=== PATIENT | male | born 1935 | race Caucasian/White ===

== ENCOUNTER 2023-03-20 16:26 | Emergency (ER) | payer MEDICARE, BC, SELFPAY ==
[2023-03-20 16:26] VITALS: BP 158/74; PULSE 76; RESP 14; TEMP 36.2; O2SAT 99
--- NOTE | 2023-03-20 16:45 | ED.VIS.LOWEX ---
HPI History of Present Illness Chief Complaint: Lower Extremity Injury Informant: patient Narrative Narrative: Patient presents with right lower extremity discomfort for about 2 weeks. Patient states that mostly at night he will get a burning feeling in his lower dominguez and calf. Is never higher. He states that he is up walking and moving around during the day he feels perfectly fine and has no symptoms at all. But if he lays down or even sometimes sits down for a long time he will get that burning feel. It is only on the right side. He does have a long history of diabetes. But he denies any known retinopathy or peripheral neuropathy. He has had trauma to that leg in the past. It sounds like he had a compartment syndrome or large hematoma that was drained but that was over 10 years ago. So he has some scarring to that leg. But he has never had the symptoms before. He has had some back pain before but states that it is not worse or different and he does not have numbness or tingling. He has had no new trauma. Patient was concerned about blood clot. PFSH PFSH Home Medications Ezetimibe/Simvastatin [Vytorin 10-20 Mg Tablet] 1 tab PO QPM cholesterol 12/04/16 [History Last Taken 10/07/19 23:00] amlodipine 10 mg tablet (Norvasc) 10 mg PO DAILY high blood pressure 12/04/16 [History Last Taken 10/07/19 07:00] Vitamin C 500 mg PO DAILY supplement 10/07/19 [History Last Taken 10/07/19 12:00] linagliptin 5 mg tablet 5 mg PO DAILY diabetes 10/07/19 [History Last Taken 10/07/19 07:00] oxycodone-acetaminophen 5 mg-325 mg tablet 1 tab PO TID PRN Pain Score 1-11/2510/08/19 [History Last Taken Unknown] Allergy/AdvReac Type Severity Reaction Status Date / Time No Known Allergies Allergy Verified 10/07/19 19:54 Social History Smoking Status: Never smoker ROS ROS ED Constitutional Constitutional ED: Denies chills, fever(s) or sweats ENT ENT ED: Denies rhinorrhea Cardiovascular Cardiovascular: Denies chest pain or palpitations Respiratory/Chest Respiratory/Chest: Denies cough or dyspnea Gastrointestinal Gastrointestinal: Denies nausea or vomiting Musculoskeletal Musculoskeletal: Reports other Details: See history of present illness ; Denies myalgias or neck pain Integumentary Denies abscess, Abrasions or rash Neurologic Neurologic: Reports paresthesias; Denies headache(s) or weakness Endocrine Endocrinology: Denies polyphagia or polyuria Hematologic/Lymphatic Hematologic/Lymphatic: Reports other Details: Denies being on anticoagulation. ; Denies easy bleeding or easy bruising Allergic/Immunologic Allergic/Immunologic ED: Denies urticaria EXAM Physical Exam Narrative Exam Narrative: CONSTITUTIONAL: Patient is nontoxic in appearance. The patient looks comfortable. Work of breathing looks normal. HEENT: No notable trauma. Mucous membranes moist. EYES: No pallor. NECK:No JVD. No stridor. CARDIOVASCULAR: Regular rate. Regular rhythm. No notable murmur. No JVD. RESPIRATORY: No respiratory distress. Breathing is unlabored. No wheezes. GASTROINTESTINAL: Not distended. Bowel sounds are normal. No tenderness. MUSCULOSKELETAL: Patient has some old scarring to the right leg and so he has some firmness to the soft tissue but it sounds like this is not different than his baseline. The leg and calf are not swollen. It is warm as a normal temperature with good blood flow. Good pulses. No redness at all. It is not tender. Sensation is intact. Other than the chronic scarring and changes from his surgery I think this is really a normal exam. NEUROLOGICAL: Patient is alert and appropriate. No focal deficit noted. SKIN: No noted rashes. No diaphoresis. Const Vital Signs: 03/20/23 16:26 Temperature 97.2 F L Temperature Source Temporal Pulse Rate 76 Respiratory Rate 14 Blood Pressure 158/74 H Blood Pressure Mean 102 Pulse Ox 99 MDM MDM MDM Narrative Medical decision making narrative: Patient's metabolic panel showed renal dysfunction but is really near his baseline. Glucose is reasonably controlled at 187. Ultrasound showed no DVT. Patient's exam and history are most consistent with peripheral neuropathy likely from diabetes. I discussed this with the patient. I explained that there are some meds that can be started but this is best started by his primary as they may need to adjust the dose frequently. They also may end up adjusting meds for his diabetes. I explained that tighter blood sugar control is can also help with this. Lab Data Labs: Laboratory Results - last 24 hr 03/20/23 16:49 Sodium 139 Potassium 3.9 Chloride 113 H Carbon Dioxide 22.0 Anion Gap 4 L BUN 36 H Creatinine 2.50 H Est GFR (MDRD) Af Amer 31 L Est GFR (MDRD) Non-Af 26 L BUN/Creatinine Ratio 14.4 Glucose 187 H Calcium 8.9 Discharge Plan Triage Chief Complaint: Lower Extremity Injury ED Provider: Twin French Dx/Rx/DC Orders Clinical Impression: Diabetic neuropathy, Leg pain, right Instructions: Diabetic Neuropathy Prescriptions: No Action amlodipine [Norvasc] 10 MG tablet 10 mg PO DAILY Ezetimibe/Simvastatin [Vytorin 10-20 Mg Tablet] 1 TABLET tablet 1 tab PO QPM linagliptin 5 MG tablet 5 mg PO DAILY Vitamin C 500 mg PO DAILY oxycodone-acetaminophen 1 TABLET tablet 1 tab PO TID PRN (Reason: Pain Score 1-10/10) Primary Care Provider: Buck Patten Referrals: Vivien Torres MD [Med Staff - Bankruptcy Manager] - As soon as possible Disposition Disposition: Home, Self Care
--- NOTE | 2023-03-20 16:50 | US_ITS ---
STUDY: VENOUS DOPPLER ULTRASOUND - RIGHT LOWER EXTREMITY REASON FOR EXAM: Male, 87 years old. right leg pain TECHNIQUE: Ultrasound evaluation of the deep vein system to include martínez-scale imaging and compression was performed. Martínez-scale imaging and Doppler sonographic evaluation, including duplex spectral analysis and qualitative color flow sonography, was performed. COMPARISON: None. FINDINGS: Common Femoral Vein: Normal compression, spontaneity and augmentation. Normal color Doppler. Common Femoral Vein/Greater Saphenous Junction: Normal compression, spontaneity and augmentation. Normal color Doppler. Deep Femoral Vein: Normal compression, spontaneity and augmentation. Normal color Doppler. Femoral Proximal: Normal compression, spontaneity and augmentation. Normal color Doppler. Femoral Middle: Normal compression, spontaneity and augmentation. Normal color Doppler. Femoral Distal: Normal compression, spontaneity and augmentation. Normal color Doppler. Popliteal Vein: Normal compression, spontaneity and augmentation. Normal color Doppler. Posterior Tibial Vein: Normal compression, spontaneity and augmentation. Normal color Doppler. Peroneal Vein: Normal compression, spontaneity and augmentation. Normal color Doppler. US/Venous Duplex Imag/Limited/Uni IMPRESSION: Normal venous Doppler ultrasound of the lower extremity. Electronically Signed: Renzo Mary MD at 17:57 EST ,
[2023-03-20 17:13] LABS: Anion Gap 4 (5-15); BUN 36 mg/dL (7-18); BUN/Creat Ratio 14.4 RATIO (10-20); Calcium,Total 8.9 mg/dL (8.5-10.1); Chloride 113 mmol/L (98-107); EST Glomerular Filtration Rate 26 mL/min (>60); Est Glom Filt Rate - Afr Amer 31 mL/min (>60); Glucose 187 mg/dL (74-106); Potassium 3.9 mmol/L (3.5-5.1); Sodium Level 139 mmol/L (136-145)
--- OUTSIDE RECORDS SUMMARY | 2023-03-20 18:13 | XMS RPT_ITS | CCD ---
Author Name Unknown Address [address] [facility] [address] [place] [address] Organization [facility] Care Team Providers Care Player Piano Technician Name Role Phone Gwen SUPERVISOR RIDES-RELAY WORKER, Amie Unavailable [phone] [facility], [place] Unavailable Sandor CALI, Buck Woods Primary Care Provider [facility], [facility] Unavailable Sandor CALI, Buck Woods Primary Care Provider [facility], [place] Unavailable [facility], [facility] Unavailable Sandor CALI, Buck Woods Primary Care Provider [facility], [place] Unavailable BUCK BISHOP Primary Care Unavailable ELVIRA PICKERING Referring Unavailable BUCK BISHOP Primary Care Unavailable BANG MITCHELL Attending Unavailable YANIRA YEBOAH Referring Unavailable BUCK BISHOP Primary Care Unavailable CARRIE CANTU Attending Unavailable CARRIE CANTU Referring Unavailable BUCK BISHOP Primary Care Unavailable BANG MITCHELL Attending Unavailable ABNG MITCHELL Referring Unavailable BUCK BISHOP Primary Care Unavailable ARLEN JAMIL Attending Unavailable BUCK BISHOP Primary Care Unavailable BANG MITCHELL Attending Unavailable BUCK BISHOP Primary Care Unavailable SANDOR, BUCK Woods Primary Care Unavailable BUCK BISHOP Attending Unavailable BUCK BISHOP Referring Unavailable SANDOR, BUCK Woods Primary Care Unavailable BUCK BISHOP Attending Unavailable SANDOR, BUCK Woods Primary Care Unavailable BISHOP, DOUGLAS Referring Unavailable BISHOP, DOUGLAS Primary Care Unavailable BISHOP, DOUGLAS Primary Care Unavailable BISHOP, DOUGLAS Primary Care Unavailable YANIRA YEBOAH Referring Unavailable RAEANN HERNANDEZ Referring Unavailable BISHOP, DOUGLAS Primary Care Unavailable BISHOP, DOUGLAS Primary Care Unavailable TATIANA SANTIAGO Attending Unavailable BISHOP, DOUGLAS Referring Unavailable BANG MITCHELL Attending Unavailable BANG MITCHELL Admitting Unavailable BISHOP, DOUGLAS Primary Care Unavailable BISHOP, DOUGLAS Primary Care Unavailable Allergies Allergy Classification Reported Allergen(s) Allergy Type Date of Onset Reaction(s) Facility (4 sources) [facility] Drug Allergy 04-13-2015 Other: See Comments [facility] (20 sources) valsartan; Translations: [VALSARTAN] Drug Allergy 11-24-2007 Cough [facility] Medications Current Medications Medication Drug Class(es) Dates Sig (Normalized) Sig (Original) benzonatate 100 mg oral capsule (6 sources) Non-narcotic Antitussive Start: 05-16-2022 End: 08-12-2022 take 2 capsules by mouth every eight hours as needed benzonatate (TESSALON PERLES) 100 mg capsule Take 2 capsules by mouth three times daily as needed. 30 capsule 0 05/16/2022 08/12/2022 Discontinued Completed/Discontinued Medications Medication Drug Class(es) Dates Sig (Normalized) Sig (Original) HYDROCODONE-ACETAMINO PHEN (1 source) Opioid Agonist Start: 07-14-2017 End: 07-29-2017 take 1 tablet by mouth every six hours as needed for pain NORCO 5-325 MG TABS Take 1 tablet by mouth every 6 hours as needed for pain HYDROCODONE-ACETAM INOPHEN [id number] Amie Hidalgo SUPERVISOR RIDES-RELAY WORKER acetaminophen 325 mg / oxyCODONE hydrochloride 10 mg oral tablet (20 sources) Opioid Agonist Start: 06-26-2022 take 1 tablet by mouth three to four times daily as needed for pain oxyCODONE-acetamin ophen (PERCOCET 10) 10-325 mg tablet TAKE 1 TABLET BY MOUTH 3 TO 4 TIMES DAILY NEEDED FOR PAIN 0 06/26/2022 Active Problems Active Problems Problem Classification Problem Date Documented Date Episodic/Chronic Blindness and vision defects (1 source) Presbyopia; Translations: [Presbyopia] Episodic Cataract (1 source) Bilateral pseudophakia; Translations: [Presence of intraocular lens] Chronic Chronic kidney disease (20 sources) Anemia in chronic kidney disease stage 4; Translations: [Chronic kidney disease, stage 4 (severe)] Onset: 07-08-2020 07-08-2020 Chronic Diabetes mellitus with complications (20 sources) Type 2 diabetes mellitus; Translations: [Type 2 diabetes mellitus with hyperglycemia] Onset: 06-22-2014 Chronic Diabetes mellitus without complication (1 source) Diabetes mellitus type 2 without retinopathy; Translations: [Type 2 diabetes mellitus without complications] Chronic Disorders of lipid metabolism (20 sources) Hyperlipidemia; Translations: [Hyperlipidemia, unspecified] Onset: 03-18-2021 03-18-2021 Chronic E Codes: Fall (1 source) Fall; Translations: [Unspecified fall, initial encounter] Episodic Essential hypertension (20 sources) Essential hypertension; Translations: [Essential (primary) hypertension] Onset: 02-27-2015 02-27-2015 Chronic Hyperplasia of prostate (20 sources) Benign prostatic hypertrophy with outflow obstruction; Translations: [Benign prostatic hyperplasia with lower urinary tract symptoms] Onset: 12-03-2006 06-29-2017 Chronic Immunizations and screening for infectious disease (2 sources) Needs influenza immunization; Translations: [Encounter for immunization] Episodic Osteoarthritis (20 sources) Arthritis of right knee; Translations: [Unilateral primary osteoarthritis, right knee] Onset: 11-10-2011 11-10-2011 Chronic Other congenital anomalies (12 sources) Congenital pes planus; Translations: [Congenital pes planus, unspecified foot] Onset: 06-30-2006 06-30-2006 Chronic Other connective tissue disease (2 sources) Arthrodesis status; Translations: [Degenerative disorder of musculoskeletal system] Onset: 02-05-2017 05-14-2017 Episodic Other connective tissue disease (1 source) Pain in right hand; Translations: [Pain in right hand] Episodic Other connective tissue disease (1 source) Bursitis; Translations: [Bursopathy, unspecified] Episodic Other diseases of bladder and urethra (12 sources) Bladder neck obstruction; Translations: [Bladder-neck obstruction] Onset: 12-03-2006 12-03-2006 Chronic Other eye disorders (1 source) Bilateral posterior vitreous detachment; Translations: [Vitreous degeneration, bilateral] Chronic Other lower respiratory disease (1 source) Cough; Translations: [Acute cough] Episodic Other lower respiratory disease (2 sources) Chronic cough; Translations: [Chronic cough] Onset: 01-05-2023 01-05-2023 Episodic Other nervous system disorders (4 sources) Carpal tunnel syndrome of right wrist; Translations: [Carpal tunnel syndrome, right upper limb] 09-18-2022 Chronic Other nervous system disorders (1 source) Carpal tunnel syndrome, right upper limb; Translations: [Right carpal tunnel syndrome] Onset: 10-02-2022 Chronic Other non-traumatic joint disorders (1 source) Shoulder pain; Translations: [Pain in right shoulder] Episodic Other nutritional; endocrine; and metabolic disorders (20 sources) Obese class I; Translations: [Obesity, unspecified] Onset: 01-15-2022 Chronic Other skin disorders (1 source) Benign neoplasm of skin of forehead; Translations: [Actinic keratosis] Episodic Residual codes; unclassified (20 sources) Obstructive sleep apnea syndrome; Translations: [Obstructive sleep apnea (adult) (pediatric)] Onset: 11-24-2014 11-24-2014 Chronic Residual codes; unclassified (1 source) Pain; Translations: [Pain, unspecified] Episodic Retinal detachments; defects; vascular occlusion; and retinopathy (1 source) Nonexudative age-related macular degeneration; Translations: [Nonexudative age-related macular degeneration, bilateral, early dry stage] Chronic Spondylosis; intervertebral disc disorders; other back problems (20 sources) Cervical arthritis; Translations: [Spondylosis without myelopathy or radiculopathy, cervical region] Onset: 03-07-2010 03-07-2010 Chronic Unclassified (1 source) Acute cough; Translations: [Acute cough] Onset: 05-16-2022 Past or Other Problems Problem Classification Problem Date Documented Da te Episodic/Chronic Genitourinary symptoms and ill-defined conditions (20 sources) Nocturia; Translations: [Nocturia] Onset: 01-06-2008 01-06-2008 Episodic Other aftercare (1 source) halfway (current) use of insulin; Translations: [Type 2 diabetes mellitus with stage 4 chronic kidney disease, with long-term current use of insulin (HCC)] Onset: 01-15-2022 Episodic Other bone disease and musculoskeletal deformities (1 source) Disorder of bone; Translations: [Disorder of bone density and structure, unspecified] Onset: 02-05-2017 02-05-2017 Episodic Other diseases of veins and lymphatics (20 sources) Peripheral venous insufficiency; Translations: [Venous insufficiency (chronic) (peripheral)] Onset: 11-10-2011 11-10-2011 Episodic Other nervous system disorders (12 sources) Abnormal gait; Translations: [Unsteadiness on feet] Onset: 06-22-2014 06-22-2014 Episodic Other non-traumatic joint disorders (1 source) Pain in right shoulder; Translations: [Acute pain of right shoulder] Onset: 06-16-2022 Episodic Other skin disorders (12 sources) Dry skin dermatitis; Translations: [Xerosis cutis] Onset: 03-07-2012 02-06-2019 Episodic Residual codes; unclassified (1 source) Pain, unspecified; Translations: [Pain] Onset: 07-10-2022 Episodic Spondylosis; intervertebral disc disorders; other back problems (20 sources) Spinal stenosis of lumbar region; Translations: [Backache] Onset: 06-22-2016 02-05-2017 Episodic Unclassified (1 source) Problem Results Test Name Value Interpretation Reference Range Facil ity Vital Signs Date Time Vital Sign Value Performing Clinician Facility 01-05-2023 14:08-0500 Body weight 91.17 kg Buck Bishop MD Work Phone: [facility] 01-05-2023 14:08-0500 Diastolic blood pressure 60 mm[Hg] Buck Bishop MD Work Phone: [facility] 01-05-2023 14:08-0500 Heart rate 64 /min Buck Bishop MD Work Phone: [facility] 01-05-2023 14:08-0500 Respiratory rate 12 /min Buck Bishop MD Work Phone: [facility] 01-05-2023 14:08-0500 Systolic blood pressure 122 mm[Hg] Buck Bishop MD Work Phone: [facility] 09-03-2022 14:00-0400 Body height 171.3 cm Carrie Cantu APRN.CNP Work Phone: [facility] 09-03-2022 14:00-0400 Body weight 88.45 kg Carrie Older SUPERVISOR RIDES.RELAY WORKER Work Phone: [facility] 09-03-2022 14:00-0400 Diastolic blood pressure 66 mm[Hg] Carrie Older SUPERVISOR RIDES.RELAY WORKER Work Phone: [facility] 09-03-2022 14:00-0400 Heart rate 72 /min Carrie Older SUPERVISOR RIDES.RELAY WORKER Work Phone: [facility] 09-03-2022 14:00-0400 Respiratory rate 16 /min Carrie Older SUPERVISOR RIDES.RELAY WORKER Work Phone: [facility] 09-03-2022 14:00-0400 Systolic blood pressure 122 mm[Hg] Carrie Older SUPERVISOR RIDES.RELAY WORKER Work Phone: [facility] 06-16-2022 11:31-0400 Body temperature 98.2 [degF] Raeann Praisler-Wood SUPERVISOR RIDES.RELAY WORKER Work Phone: [facility] 06-16-2022 11:31-0400 Body weight 91.54 kg Raeann Praisler-Wood SUPERVISOR RIDES.RELAY WORKER Work Phone: [facility] 06-16-2022 11:31-0400 Diastolic blood pressure 58 mm[Hg] Raeann Praisler-Wood SUPERVISOR RIDES.RELAY WORKER Work Phone: [facility] 06-16-2022 11:31-0400 Heart rate 80 /min Raeann Praisler-Wood SUPERVISOR RIDES.RELAY WORKER Work Phone: [facility] 06-16-2022 11:31-0400 Respiratory rate 21 /min Raeann Praisler-Wood SUPERVISOR RIDES.RELAY WORKER Work Phone: [facility] 06-16-2022 11:31-0400 SaO2% (BldA) [Mass fraction] 95 % Raeann Praisler-Wood SUPERVISOR RIDES.RELAY WORKER Work Phone: [facility] 06-16-2022 11:31-0400 Systolic blood pressure 122 mm[Hg] Raeann Praisler-Wood SUPERVISOR RIDES.RELAY WORKER Work Phone: [facility] 05-16-2022 15:30-0400 Body temperature 98.49 [degF] Elvira Athy PA-C Work Phone: [facility] 05-16-2022 15:30-0400 Body weight 91.26 kg Elvira Athy PA-C Work Phone: [facility] 05-16-2022 15:30-0400 Diastolic blood pressure 64 mm[Hg] Elvira Athy PA-C Work Phone: [facility] 05-16-2022 15:30-0400 Heart rate 73 /min Elvira Athy PA-C Work Phone: [facility] 05-16-2022 15:30-0400 Respiratory rate 16 /min Elvira Athy PA-C Work Phone: [facility] 05-16-2022 15:30-0400 SaO2% (BldA) [Mass fraction] 97 % Elvira Athy PA-C Work Phone: [facility] 05-16-2022 15:30-0400 Systolic blood pressure 110 mm[Hg] Elvira Athy PA-C Work Phone: [facility] 01-15-2022 14:25-0500 Body temperature 96.8 [degF] Buck Bishop MD Work Phone: [facility] 01-15-2022 14:25-0500 Body weight 91.17 kg Buck Bishop MD Work Phone: [facility] 01-15-2022 14:25-0500 Diastolic blood pressure 64 mm[Hg] Buck Bishop MD Work Phone: [facility] 01-15-2022 14:25-0500 Heart rate 68 /min Buck Bishop MD Work Phone: [facility] 01-15-2022 14:25-0500 Respiratory rate 12 /min Buck Bishop MD Work Phone: [facility] 01-15-2022 14:25-0500 Systolic blood pressure 118 mm[Hg] Buck Bishop MD Work Phone: [facility] 09-13-2021 14:54-0400 Body height 170.2 cm Buck Bishop MD Work Phone: [facility] 09-13-2021 14:54-0400 Body temperature 97.3 [degF] Buck Bishop MD Work Phone: [facility] 09-13-2021 14:54-0400 Body weight 92.53 kg Buck Bishop MD Work Phone: [facility] 09-13-2021 14:54-0400 Diastolic blood pressure 60 mm[Hg] Buck Bishop MD Work Phone: [facility] 09-13-2021 14:54-0400 Heart rate 94 /min Buck Bishop MD Work Phone: [facility] 09-13-2021 14:54-0400 Respiratory rate 14 /min Buck Bishop MD Work Phone: [facility] 09-13-2021 14:54-0400 SaO2% (BldA) [Mass fraction] 96 % Buck Bishop MD Work Phone: [facility] 09-13-2021 14:54-0400 Systolic blood pressure 134 mm[Hg] Buck Bishop MD Work Phone: [facility] NEGATED: Highlighted [id number] 14:27-0400 BMI (Body Mass Index) 28.08 kg/m2 Elba Narayan AT [facility] Work Phone: NEGATED: Highlighted [id number] 14:27-0400 BP Diastolic 67 mm[Hg] Elba Narayan AT [facility] Work Phone: NEGATED: Highlighted [id number] 14:27-0400 BP Systolic 115 mm[Hg] Elba Narayan AT [facility] Work Phone: NEGATED: Highlighted [id number] 14: Height 177.8 cm Elba Narayan AT [facility] Work Phone: NEGATED: Highlighted [id number] 14:040 Height 178 cm Elba Narayan AT [facility] Work Phone: NEGATED: Highlighted [id number] 14:-040 Pulse (Heart Rate) 80 /min Elba Narayan AT [facility] Work Phone: NEGATED: Highlighted [id number] 14:27-040 Weight 88.45 kg Elba Narayan AT [facility] Work Phone: NEGATED: Highlighted [id number] 14:040 Weight 89 kg Elba Narayan AT [facility] Work Phone: Encounters Encounter Date Encounter Type Care Provider Facility Start: 01-09-2023 Telephone encounter Buck pérez MD Work Phone: [facility] Procedures Date Procedure Procedure Detail Performing Clinician Start: 01-05-2023 Hemoglobin A1c/Hemoglobin.total in Blood Buck Bishop MD Work Phone: Start: 04-03-2022 Computerized ophthal kelsi imaging retina Tatiana Santiago OD Work Phone: Start: 01-15-2022 Hemoglobin A1c/Hemoglobin.total in Blood Buck Bishop MD Work Phone: Start: 01-15-2022 [employer] COVI D-19 BIVALENT BOOSTER VACCINE, AGE 12+ YR Buck Bishop MD Work Phone: Start: 01-15-2022 INFLUENZA SEASONAL QUADRIVALENT HIGH DOSE AGE 65+ Buck Bishop MD Work Phone: Start: 07-21-2017 End: 07-21-2017 Blood pressure within normal parameters - no follow-up required Amie Hidalgo SUPERVISOR RIDES-RELAY WORKER Work Phone: Start: 07-21-2017 End: 07-21-2017 BMI documented as above normal parameters - follow-up documented Amie Hidalgo SUPERVISOR RIDES-RELAY WORKER Work Phone: Start: 07-21-2017 End: 07-21-2017 Current medications documented Amie Hidalgo SUPERVISOR RIDES-RELAY WORKER Work Phone: Start: 07-21-2017 End: 07-21-2017 Fall plan of care docd Maie Jhonnyted perez SUPERVISOR RIDES-RELAY WORKER Work Phone: Start: 07-21-2017 End: 07-21-2017 Fall risk assessment doc d Amie gutierrez SUPERVISOR RIDES-RELAY WORKER Work Phone: Start: 07-21-2017 End: 07-21-2017 Pain assessment documented as positive - follow-up documented Amie Hidalgo SUPERVISOR RIDES-RELAY WORKER Work Phone: Start: 07-21-2017 End: 07-21-2017 Ptfalls assess-doc d ge2+/yr Amie Hidalgo SUPERVISOR RIDES-RELAY WORKER Work Phone: Start: 07-21-2017 End: 07-21-2017 Tobacco non-user Amie Hidalgo SUPERVISOR RIDES-RELAY WORKER Work Phone: Plan of Treatment Date Care Activity Detail Author Start: 01-06-2024 3 comp foot exam completed Diabetic Foot Exam [facility] Start: 09-04-2023 COVID-19 VACCINE (6 - Pfizer series) COVID-19 VACCINE (6 - Pfizer series) [facility] Immunizations Immunization Date Immunization Notes Care Provider Fa cility 01-15-2022 COVID-19 booster vaccine, age 12+ yr, bivalent (PFIZER-BIONTECH) Buck Bishop MD Work Phone: [facility] Work Phone: 01-15-2022 influenza, high-dose , quadrivalent vaccine (FLUZONE HIGH DOSE QUADRIVALENT) Buck Bishop MD Work Phone: [facility] Work Phone: 01-15-2022 influenza virus vaccine, unspecified formulation Buck Bishop MD Work Phone: [facility] 03-30-2020 COVID-19 vaccine, ag e 12+ yr (PFIZER-BIONTECH - PURPLE TOP) Keti [facility] Work Phone: [facility] 03-08-2020 COVID-19 vaccine, ag e 12+ yr (PFIZER-BIONTECH - PURPLE TOP) Keti Dubow [facility] Work Phone: [facility] 12-10-2019 influenza, high-dose , quadrivalent vaccine (FLUZONE HIGH DOSE QUADRIVALENT) [facility] Work Phone: 12-30-2018 influenza, high dose seasonal, preservative-free Keti Dubow [facility] Work Phone: [facility] 12-15-2017 influenza, high dose seasonal, preservative-free Keti Dubow [facility] Work Phone: [facility] 12-26-2016 influenza, high dose seasonal, preservative-free Keti Dubow [facility] Work Phone: [facility] 12-13-2015 influenza, high dose seasonal, preservative-free Keti Dubow [facility] Work Phone: [facility] 01-02-2015 influenza, seasonal, injectable Keti [facility] Work Phone: [facility] 10-27-2014 pneumococcal conjuga te vaccine, 13 valent [facility] 12-03-2012 influenza virus vaccine, unspecified formulation Keti Dubow [facility] Work Phone: [facility] 02-02-2012 influenza virus vaccine, unspecified formulation [facility] 12-21-2010 influenza virus vaccine, unspecified formulation Keti Dubow [facility] Work Phone: [facility] 12-11-2009 influenza virus vaccine, unspecified formulation Keti Dubow [facility] Work Phone: [facility] Work Phone: 10-09-2009 tetanus and diphther ia toxoids, adsorbed, preservative free, for adult use (2 Lf of tetanus toxoid and 2 Lf of diphtheria toxoid) [facility] Work Phone: [facility] 12-12-2008 influenza virus vaccine, unspecified formulation [facility] Work Phone: [facility] 12-22-2007 influenza virus vaccine, unspecified formulation [facility] Work Phone: [facility] Work Phone: 01-22-2007 influenza virus vaccine, unspecified formulation [facility] Work Phone: [facility] Work Phone: 12-29-2005 influenza virus vaccine, unspecified formulation [facility] Work Phone: [facility] Work Phone: 12-10-2004 pneumococcal polysaccharide vaccine, 23 valent [facility] Work Phone: [facility] Work Phone: No information available. Elba Narayan AT [facility] Work Phone: Payers Date Payer Category Payer Unknown [employer] TRADITIONAL OOS [id number] 2007-Present [phone] [address] [place] [address] Indemnity [id number] 2007 Unknown [id number] 2007 Unknown [id number] 1998 Medicare MEDICARE MEDICAR E A AND B [id number] 1998-Present [phone] [address] [address] [place] [address] Medicare [id number] 1998 Medicare MEDICARE MEDICAR E A AND B [id number] 1998-Present [phone] [place] [address] Medicare [id number] 1998 Medicare [id number] Social History Date Type Detail Facility Start: 02-25-2012 End: 05-16-2022 Tobacco smoking status NHIS Ex-smoker [facility] Work Phone: End: 01-16-1958 History of tobacco use Current smoker [facility] End: 01-16-1958 History of tobacco use Cigarette Smoker [facility] Start: 05-14-2021 End: 01-05-2023 Alcohol intake Current non-drinker of alcohol (finding) [facility] Start: 1935 Sex Assigned At Not on file [facility] Start: 04-22-2021 End: 01-15-2022 Exposure to SARS-CoV-2 (event) Not sure [facility] Work Phone: Start: 02-25-2012 End: 07-10-2022 Cigarettes smoked current (pack per day) - Reported 0.5 [facility] Work Phone: Start: 02-25-2012 End: 05-16-2022 Tobacco use and exposure Smokeless tobacco non-user [facility] Start: 07-10-2022 End: 09-03-2022 Tobacco use panel [facility] Work Phone: Adult Depression Screening Assessment 0 [facility] Work Phone: NEGATED: Highlighted rowStart: 07-21-2017 End: 07-21-2017 Assertion Former smoker [facility] Work Phone: Medical Equipment Procedure Code Equipment Code Equipment Origin al Text Equipment Identifier Dates Start: 10-17-2020 End: 01-05-2023 Clinical Notes 10-07-2019 to 01-12-2023 Telephone Encounter - Lesli Philippe Ma - 01/12/2023 12:32 PM ESTTelephone Encounter - Carrie Cantu APRN.RELAY WORKER - 01/12/2023 12:02 PM ESTTelephone Encounter - Alyson Amezquita RN - 01/12/2023 10:52 AM EST Note Date & Type Note Facility 01-12-2023 Miscellaneous Notes Patient notified. He could try Mucinex extended release 12 hr over the counter. Follow directions on bottle Carrie Cantu APRN.RELAY WORKER Pt called and is notified of providers results. Pt voices understanding. He asking what he can do for the phlegm he is still coughing up. He states it is thick and white, but sometimes yellowish. Please call and advise. Alyson Amezquita RN Left message to call office. 01/09/2023 8:21 AM ----- Message from Buck Bishop MD sent at 01/07/2023 6:55 PM EST ----- Chest xray negative. documented in this encounter [facility] 01-05-2023 Note HNO ID: [id number] Author: Kelly Obregon RT(R) Service: ? Author Type: [place] [employer] Type: Progress Notes Filed: 01/05/2023 2:57 PM Note Text: Radiology Service Progress Note PATIENT NAME: Renzo Mead DATE OF SERVICE: January 05, 2023 TIME: 2:57 PM PATIENT IDENTITY VERIFICATION COMPLETED USING TWO (2) IDENTIFIERS: Name and Date of confirmed by patient verbally. FALL SCREENING: Has the patient had 2 falls in the last year or 1 fall with injury or currently using an Ambulatory Assistive Device (Walker, Cane, Wheelchair, Crutches, etc.)? Yes, Patient High Risk for Falls What interventions were put in place to prevent falls during this visit? Instructed Patient to Remain Seated (Not on Exam Table) Until Exam and Increased Observations by Caregivers PATIENT GENDER DATA: Male PATIENT RELEVANT IMPLANT DATA REVIEWED: Yes RADIOLOGY DEPARTMENT: General X-ray: Exam(s) Completed: Chest X-Ray PERIPHERAL IV DATA: Not applicable SIGNED BY: Kelly Obregon, RT(R) January 05, 2023 2:57 PM [facility] 01-05-2023 Note HNO ID: [id number] Author: Buck Bishop MD Service: ? Author Type: Physician Type: Progress Notes Filed: 01/05/2023 2:36 PM Note Text: This note was created using Muzyriter. Subjective Renzo Mead is a 87 year old male. He complained of chronic cough, productive of thick white phlegm for 6 months. He had no nasal or sinus symptoms, and no postnasal drainage. His glucose was 115-130 mornings, and up to 200 in the evening by his recollection. Review of Systems Constitutional: Negative for chills, fever and unexpected weight change. HENT: Negative for postnasal drip. Respiratory: Positive for cough. Negative for chest tightness, shortness of breath and wheezing. No hemoptysis. Cardiovascular: Negative for chest pain, palpitations and leg swelling. Gastrointestinal: Negative. Musculoskeletal: Positive for back pain and gait problem. Neurological: Positive for numbness. Psychiatric/Behavioral: Positive for self-injury. 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, With Long-Term Current Use of Insulin (Hcc) Deondre On Cpap Lumbosacral Pain Left Sided Sciatica Anemia Due to Stage 4 Chronic Kidney Disease (Hcc) Hyperlipidemia Obesity, Class I, Bmi 30-34.9 Social History Tobacco Use Smoking status: Former Packs/day: 0.50 Years: 15.00 Additional pack years: 0.00 Total pack years: 7.50 Types: Cigarettes Quit date: 01/16/1958 Years since quittin.0 Smokeless tobacco: Never Vaping Use Vaping Use: Never used Substance Use Topics Alcohol use: No Drug use: No Current Outpatient Medications Medication Sig insulin glargine U-300 conc (TOUJEO) 300 unit/mL (1.5 mL) Inject 16 Units subcutaneously daily at bedtime. dulaglutide (TRULICITY) 1.5 mg/0.5 mL pen injector Inject 1.5 mg subcutaneously one time a week. DULoxetine (CYMBALTA) 30 mg capsule Take 1 capsule by mouth once daily. oxybutynin ER (DITROPAN XL) 10 mg 24 hr tablet Take 1 tablet by mouth every evening. For frequent urination. amLODIPine (NORVASC) 10 mg tablet Take 1 tablet by mouth once daily. Insulin Finley, Disposable, (PEN NEEDLE) 32 gauge x Use with Toujeo insulin daily and Humalog oxyCODONE-acetaminophen (PERCOCET 10) 10-325 mg tablet TAKE 1 TABLET BY MOUTH 3 TO 4 TIMES DAILY NEEDED FOR PAIN metoprolol succinate ER (TOPROL XL) 25 mg 24 hr tablet Take 1 tablet by mouth once daily. ezetimibe-simvastatin 10-20 mg (VYTORIN 10/20) 10-20 mg per tablet Take 1 tablet by mouth daily at bedtime. lancets (ONE TOUCH DELICA) 33 gauge Check blood sugars 3 times daily and as needed for symptoms of sugars being too high or too low. (E11.65, Z79.4) Type 2 diabetes mellitus with hyperglycemia, with long-term current use of insulin (HCC) triamcinolone acetonide (KENALOG) 0.1 % cream Apply 1 application to affected area as needed. daily as needed alfuzosin SR (UROXATRAL) 10 mg 24 hr tablet Take 1 tablet by mouth once daily. blood sugar diagnostic ([employer]ie [employer]By[employer] TEST STRIPS) test strip Test blood sugar(s) three times daily. Dx: Type 2 DM - Controlled E11.9 Insulin: Yes insulin lispro (HUMALOG KWIKPEN) 100 unit/mL Inject 8 Units subcutaneously daily with breakfast AND 10 Units daily with dinner. nystatin (MYCOSTATIN) cream Apply to affected area twice daily. Apply for 7 days to penile rash. [employer] SYSTEM misc Aspirin 81 mg tab Take 1 tablet by mouth once daily. Take with food. COMPOUNDED PRESCRIPTION Initiate CPAP @ 11 cm of water with humidification. Mask (per patient preference) optional chin strap (if indicated) tubing , filters, humidifier and lifetime supplies. Dx. DEONDRE 327.23 CENTRUM SILVER TAB Take one(1) tablet daily. VITAMIN C 500 MG TAB Take one(1) tablet daily. No current facility-administered medications for this visit. Objective BP 122/60 (BP Site: Left Arm, BP Position: Sitting, BP Cuff Size: Large Adult) Pulse 64 Resp 12 Wt 91.2 kg (201 lb) BMI 31.07 kg/m? Physical Exam Constitutional: General: He is not in acute distress. Appearance: He is not ill-appearing. HENT: Nose: Nose normal. No congestion or rhinorrhea. Mouth/Throat: Mouth: Mucous membranes are moist. Pharynx: Oropharynx is clear. Cardiovascular: Rate and Rhythm: Normal rate and regular rhythm. Heart sounds: No murmur heard. No gallop. Pulmonary: Breath sounds: Examination of the right-lower field reveals rhonchi. Rhonchi present. No decreased breath sounds, wheezing or rales. Abdominal: Tenderness: There is no abdominal tenderness. Musculoskeletal: Right lower le+ Pitting Edema present. Left lower le+ Pitting Edema present. Lymphadenopathy: Cervical: No cervical adenopathy. Neurological: Mental Status: (more content not included)... [facility] 01-05-2023 History of Present illness Narrative This note was created using Muzyriter. Subjective Renzo Mead is a 87 year old male. He complained of chronic cough, productive of thick white phlegm for 6 months. He had no nasal or sinus symptoms, and no postnasal drainage. His glucose was 115-130 mornings, and up to 200 in the evening by his recollection. Review of Systems Constitutional: Negative for chills, fever and unexpected weight change. HENT: Negative for postnasal drip. Respiratory: Positive for cough. Negative for chest tightness, shortness of breath and wheezing. No hemoptysis. Cardiovascular: Negative for chest pain, palpitations and leg swelling. Gastrointestinal: Negative. Musculoskeletal: Positive for back pain and gait problem. Neurological: Positive for numbness. Psychiatric/Behavioral: Positive for self-injury. 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, With Long-Term Current Use of Insulin (Hcc) Deondre On Cpap Lumbosacral Pain Left Sided Sciatica Anemia Due to Stage 4 Chronic Kidney Disease (Hcc) Hyperlipidemia Obesity, Class I, Bmi 30-34.9 Social History Tobacco Use Smoking status: Former Packs/day: 0.50 Years: 15.00 Additional pack years: 0.00 Total pack years: 7.50 Types: Cigarettes Quit date: 01/16/1958 Years since quittin.0 Smokeless tobacco: Never Vaping Use Vaping Use: Never used Substance Use Topics Alcohol use: No Drug use: No Current Outpatient Medications Medication Sig insulin glargine U-300 conc (TOUJEO) 300 unit/mL (1.5 mL) Inject 16 Units subcutaneously daily at bedtime. dulaglutide (TRULICITY) 1.5 mg/0.5 mL pen injector Inject 1.5 mg subcutaneously one time a week. DULoxetine (CYMBALTA) 30 mg capsule Take 1 capsule by mouth once daily. oxybutynin ER (DITROPAN XL) 10 mg 24 hr tablet Take 1 tablet by mouth every evening. For frequent urination. amLODIPine (NORVASC) 10 mg tablet Take 1 tablet by mouth once daily. Insulin Finley, Disposable, (PEN NEEDLE) 32 gauge x 5/32 Use with Toujeo insulin daily and Humalog oxyCODONE-acetaminophen (PERCOCET 10) 10-325 mg tablet TAKE 1 TABLET BY MOUTH 3 TO 4 TIMES DAILY NEEDED FOR PAIN metoprolol succinate ER (TOPROL XL) 25 mg 24 hr tablet Take 1 tablet by mouth once daily. ezetimibe-simvastatin 10-20 mg (VYTORIN 10/20) 10-20 mg per tablet Take 1 tablet by mouth daily at bedtime. lancets (ONE TOUCH DELICA) 33 gauge Check blood sugars 3 times daily and as needed for symptoms of sugars being too high or too low. (E11.65, Z79.4) Type 2 diabetes mellitus with hyperglycemia, with long-term current use of insulin ([facility]) triamcinolone acetonide (KENALOG) 0.1 % cream Apply 1 application to affected area as needed. daily as needed alfuzosin SR (UROXATRAL) 10 mg 24 hr tablet Take 1 tablet by mouth once daily. blood sugar diagnostic (ONETOUCH VERIO TEST STRIPS) test strip Test blood sugar(s) three times daily. Dx: Type 2 DM - Controlled E11.9 Insulin: Yes insulin lispro (HUMALOG KWIKPEN) 100 unit/mL Inject 8 Units subcutaneously daily with breakfast AND 10 Units daily with dinner. nystatin (MYCOSTATIN) cream Apply to affected area twice daily. Apply for 7 days to penile rash. [email or web address] VERIO SYSTEM misc Aspirin 81 mg tab Take 1 tablet by mouth once daily. Take with food. COMPOUNDED PRESCRIPTION Initiate CPAP @ 11 cm of water with humidification. Mask (per patient preference) optional chin strap (if indicated) tubing , filters, humidifier and lifetime supplies. Dx. DEONDRE 327.23 CENTRUM SILVER TAB Take one(1) tablet daily. VITAMIN C 500 MG TAB Take one(1) tablet daily. No current facility-administered medications for this visit. Objective BP 122/60 (BP Site: Left Arm, BP Position: Sitting, BP Cuff Size: Large Adult) Pulse 64 Resp 12 Wt 91.2 kg (201 lb) BMI 31.07 kg/m Physical Exam Constitutional: General: He is not in acute distress. Appearance: He is not ill-appearing. HENT: Nose: Nose normal. No congestion or rhinorrhea. Mouth/Throat: Mouth: Mucous membranes are moist. Pharynx: Oropharynx is clear. Cardiovascular: Rate and Rhythm: Normal rate and regular rhythm. Heart sounds: No murmur heard. No gallop. Pulmonary: Breath sounds: Examination of the right-lower field reveals rhonchi. Rhonchi present. No decreased breath sounds, wheezing or rales. Abdominal: Tenderness: There is no abdominal tenderness. Musculoskeletal: Right lower le+ Pitting Edema present. Left lower le+ Pitting Edema present. Lymphadenopathy: Cervical: No cervical adenopathy. Neurological: Mental Status: He is alert. Feet:Shoes and socks removed, No deformities, ulcers, calluses, normal distal pulses, and not sensitive to monofilament in some toes. Assessment and Plan 1. Type 2 diabetes mellitus with stage 4 chronic kidney disease, with long-term current use of insulin ([facility]) - ICD9: 250.40, 585.4, V58.67, ICD10: E11.22, N18.4, Z79.4 (primary diagnosis) - Controlled - Continue current medications - eGFR: 24 Stable - LANCETS 33 GAUGE - INSULIN LISPRO (U-100) 100 UNIT/ML SUBCUTANEOUS PEN - HEMOGLOBIN A1C (POC) - BASIC METABOLIC PNL - HGB A1C 2. Hyperlipidemia, unspecified hyperlipidemia type - ICD9: 272.4, ICD10: E78.5 - Controlled - Continue current medications - EZETIMIBE 10 MG-SIMVASTATIN 20 MG TABLET 3. Benign prostatic hyperplasia with urinary obstruction - ICD9: 600.01, 599.69, ICD10: N40.1, N13.8 Controlled. - ALFUZOSIN ER 10 MG TABLET,EXTENDED RELEASE 24 HR 4. Chronic cough - ICD9: 786.2, ICD10: R05.3 Etiology not clear. - XR CHEST 2V FRONTAL/LAT Buck Bishop MD documented in this encounter [facility] 01-01-2023 Miscellaneous Notes Patient has been identified by name and date of : Yes, Marielos Sams RN Date 01/01/2023 Time 4:20 pm Patient phones for refill(s): Requested Prescriptions Pending Prescriptions Disp Refills insulin glargine U-300 conc (TOUJEO) 300 unit/mL (1.5 mL) 5 Each 3 Sig: Inject 16 Units subcutaneously daily at bedtime. Date of last office visit in primary care: 09/03/2022 Date of next office visit in primary care: 01/05/2023 Last 2 Encounter Wt Readings: Date: Wt: 09/22/2022 88.5 kg (195 lb 1.7 oz) 09/03/2022 88.5 kg (195 lb) Previous labs/tests for medication: Diabetes: Hemoglobin A1C (%) Date Value 09/03/2022 6.5 09/13/2021 7.4 03/12/2021 9.2 09/07/2020 10.8 Hemoglobin A1C (POCT) (%) Date Value 01/15/2022 7.2 Please advise. Thank you. Marielos Sams RN. documented in this encounter [facility] 12-11-2022 Miscellaneous Notes Patient has been identified by name and date of : Yes Requested Prescriptions Pending Prescriptions Disp Refills dulaglutide (TRULICITY) 1.5 mg/0.5 mL pen injector 2 mL 5 Sig: Inject 1.5 mg subcutaneously one time a week. RX INSTRUCTIONS: Patient aware RX will be sent to pharmacy. No need to notify patient. aJnay Odonnell Pss documented in this encounter [facility] 11-14-2022 Miscellaneous Notes Patient has been identified by name and date of : Yes Requested Prescriptions Pending Prescriptions Disp Refills amLODIPine (NORVASC) 10 mg tablet 90 tablet 3 Sig: Take 1 tablet by mouth once daily. RX INSTRUCTIONS: Patient aware RX will be sent to pharmacy. No need to notify patient. Steffi Delgado documented in this encounter [facility] 11-13-2022 Note HNO ID: [id number] Author: Bang Mitchell MD Service: ? Author Type: Physician Type: Progress Notes Filed: 11/13/2022 4:26 PM Note Text: Bang Mitchell MD Department of Orthopaedics Orthopaedics [address] [facility] [address] Dept: [phone] Dept November 13, 2022 CHIEF COMPLAINT: Established Patient and Follow Up of the Right Wrist (6 weeks post op right CTR). HPI Patient presents with: Right Wrist - Established Patient, Follow Up: 6 weeks post op right CTR Patient is here for a follow up after right CTR. States he still has some numbness in his right thumb, index, and middle fingers. 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 Patient would like to talk to the doctor about his left hand as well. He doesn't have symptoms but has a concern about the appearance of the hand. AMB ROOMING INTAKE FLOWSHEET DATA Pain Pain Level: 1 Pain Location: Wrist-Right Description: Numbness Duration Amount of Time: (ongoing) Frequency: Continuous Intervention/Comfort measure: Reposition, Relaxation ASSESSMENT: G56.01 Right carpal tunnel syndrome (primary encounter diagnosis) SUMMARY/PLAN: He is doing quite well and feels improvement and still just a little bit of numbness in the fingers, expected. He is healed extremely well. He will be able to follow-up on an as-needed basis and continue with activities as tolerated. Exam: Completely healed incision. Full range of motion of the hand. Supporting Information Below: Medications: Current Outpatient Medications Medication Sig DULoxetine (CYMBALTA) 30 mg capsule Take 1 capsule by mouth once daily. oxybutynin ER (DITROPAN XL) 10 mg 24 hr tablet Take 1 tablet by mouth every evening. For frequent urination. amLODIPine (NORVASC) 10 mg tablet Take 1 tablet by mouth once daily. Insulin Finley, Disposable, (PEN NEEDLE) 32 gauge x 5/32 Use with Toujeo insulin daily and Humalog oxyCODONE-acetaminophen (PERCOCET 10) 10-325 mg tablet TAKE 1 TABLET BY MOUTH 3 TO 4 TIMES DAILY NEEDED FOR PAIN dulaglutide (TRULICITY) 1.5 mg/0.5 mL pen injector Inject 1.5 mg subcutaneously one time a week. metoprolol succinate ER (TOPROL XL) 25 mg 24 hr tablet Take 1 tablet by mouth once daily. ezetimibe-simvastatin 10-20 mg (VYTORIN 10/20) 10-20 mg per tablet Take 1 tablet by mouth daily at bedtime. lancets (ONE TOUCH DELICA) 33 gauge Check blood sugars 3 times daily and as needed for symptoms of sugars being too high or too low. (E11.65, Z79.4) Type 2 diabetes mellitus with hyperglycemia, with long-term current use of insulin (HCC) triamcinolone acetonide (KENALOG) 0.1 % cream Apply 1 application to affected area as needed. daily as needed alfuzosin SR (UROXATRAL) 10 mg 24 hr tablet Take 1 tablet by mouth once daily. blood sugar diagnostic ([employer] VERIO TEST STRIPS) test strip Test blood sugar(s) three times daily. Dx: Type 2 DM - Controlled E11.9 Insulin: Yes insulin glargine U-300 conc (TOUJEO) 300 unit/mL (1.5 mL) Inject 16 Units subcutaneously daily at bedtime. insulin lispro (HUMALOG KWIKPEN) 100 unit/mL Inject 8 Units subcutaneously daily with breakfast AND 10 Units daily with dinner. nystatin (MYCOSTATIN) cream Apply to affected area twice daily. Apply for 7 days to penile rash. [email or web address] VERIO SYSTEM misc Aspirin 81 mg tab Take 1 tablet by mouth once daily. Take with food. COMPOUNDED PRESCRIPTION Initiate CPAP @ 11 cm of water with humidification. Mask (per patient preference) optional chin strap (if indicated) tubing , filters, humidifier and lifetime supplies. Dx. DEONDRE 327.23 CENTRUM SILVER TAB Take one(1) tablet daily. VITAMIN C 500 MG TAB Take one(1) tablet daily. No current facility-administered medications for this visit. Allergies: Diovan [Valsartan] Bang Mitchell MD [facility] 11-13-2022 History of Present illness Narrative Bang Mitchell MD Department of Orthopaedics Orthopaedics [address] [facility] [address] Dept: [phone] Dept November 13, 2022 CHIEF COMPLAINT: Established Patient and Follow Up of the Right Wrist (6 weeks post op right CTR). HPI Patient presents with: Right Wrist - Established Patient, Follow Up: 6 weeks post op right CTR Patient is here for a follow up after right CTR. States he still has some numbness in his right thumb, index, and middle fingers. 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 Patient would like to talk to the doctor about his left hand as well. He doesn't have symptoms but has a concern about the appearance of the hand. AMB ROOMING INTAKE FLOWSHEET DATA Pain Pain Level: 1 Pain Location: Wrist-Right Description: Numbness Duration Amount of Time: (ongoing) Frequency: Continuous Intervention/Comfort measure: Reposition, Relaxation ASSESSMENT: G56.01 Right carpal tunnel syndrome (primary encounter diagnosis) SUMMARY/PLAN: He is doing quite well and feels improvement and still just a little bit of numbness in the fingers, expected. He is healed extremely well. He will be able to follow-up on an as-needed basis and continue with activities as tolerated. Exam: Completely healed incision. Full range of motion of the hand. Supporting Information Below: Medications: Current Outpatient Medications Medication Sig DULoxetine (CYMBALTA) 30 mg capsule Take 1 capsule by mouth once daily. oxybutynin ER (DITROPAN XL) 10 mg 24 hr tablet Take 1 tablet by mouth every evening. For frequent urination. amLODIPine (NORVASC) 10 mg tablet Take 1 tablet by mouth once daily. Insulin Finley, Disposable, (PEN NEEDLE) 32 gauge x /32 Use with Toujeo insulin daily and Humalog oxyCODONE-acetaminophen (PERCOCET 10) 10-325 mg tablet TAKE 1 TABLET BY MOUTH 3 TO 4 TIMES DAILY NEEDED FOR PAIN dulaglutide (TRULICITY) 1.5 mg/0.5 mL pen injector Inject 1.5 mg subcutaneously one time a week. metoprolol succinate ER (TOPROL XL) 25 mg 24 hr tablet Take 1 tablet by mouth once daily. ezetimibe-simvastatin 10-20 mg (VYTORIN 10/20) 10-20 mg per tablet Take 1 tablet by mouth daily at bedtime. lancets (ONE TOUCH DELClickFacts) 33 gauge Check blood sugars 3 times daily and as needed for symptoms of sugars being too high or too low. (E11.65, Z79.4) Type 2 diabetes mellitus with hyperglycemia, with long-term current use of insulin (HCC) triamcinolone acetonide (KENALOG) 0.1 % cream Apply 1 application to affected area as needed. daily as needed alfuzosin SR (UROXATRAL) 10 mg 24 hr tablet Take 1 tablet by mouth once daily. blood sugar diagnostic ([employer] VERIO TEST STRIPS) test strip Test blood sugar(s) three times daily. Dx: Type 2 DM - Controlled E11.9 Insulin: Yes insulin glargine U-300 conc (TOUJEO) 300 unit/mL (1.5 mL) Inject 16 Units subcutaneously daily at bedtime. insulin lispro (HUMALOG KWIKPEN) 100 unit/mL Inject 8 Units subcutaneously daily with breakfast AND 10 Units daily with dinner. nystatin (MYCOSTATIN) cream Apply to affected area twice daily. Apply for 7 days to penile rash. [employer] VERIO SYSTEM misc Aspirin 81 mg tab Take 1 tablet by mouth once daily. Take with food. COMPOUNDED PRESCRIPTION Initiate CPAP @ 11 cm of water with humidification. Mask (per patient preference) optional chin strap (if indicated) tubing , filters, humidifier and lifetime supplies. Dx. DEONDRE 327.23 CENTRUM SILVER TAB Take one(1) tablet daily. VITAMIN C 500 MG TAB Take one(1) tablet daily. No current facility-administered medications for this visit. Allergies: Diovan [Valsartan] Bang Mitchell MD documented in this encounter [facility] 11-07-2022 Miscellaneous Notes Form completed and faxed back to information below. Shira Davila Ma Type of form: CMN, Rx for Pap supplies from [facility] Form received via fax When form is completed, Fax form to [facility] at [phone] Form has been forwarded to Nurse Practitioner: LUAN Ro Ma documented in this encounter [facility] 10-13-2022 Note HNO ID: [id number] Author: Arlen Jamil PA-C Service: ? Author Type: Physician Career Coach Type: Progress Notes Filed: 10/13/2022 1:57 PM Note Text: Arlen Jamil PA-C Department of Orthopaedics Orthopaedics [address] [place] [id number] Dept: [phone] Dept October 13, 2022 CHIEF COMPLAINT: Established Patient and Post Op of the Right Wrist (1 week 4 days post R CTR). ASSESSMENT: G56.01 Right carpal tunnel syndrome (primary encounter diagnosis) SUMMARY/PLAN: Patient presents 1 week and 4 days status post right carpal tunnel release. He is doing much better, not having the same pain that he was having previously in the hand, still however having numbness in the radial 3 digits. We discussed proper hand washing, no soaking of the operative hand. No heavy lifting, pushing or pulling with the operative hand, encourage gentle motion. We discussed scar massage. Follow up as planned. Exam: Right palm incision site is well approximated without erythema or drainage. There is mild but appropriate edema at the base of the palm, no ecchymosis noted. Patient is able to form a full composite fist and extend all digits, subjective numbness in the radial 3 digits. Imaging: Deferred today. Mr. Renzo Mead was advised as to contrast therapies and/or to take analgesics/anti-inflammatories as needed and all contraindications were reviewed. Supporting Information Below: Medications: Current Outpatient Medications Medication Sig DULoxetine (CYMBALTA) 30 mg capsule Take 30 mg by mouth once daily. oxybutynin ER (DITROPAN XL) 10 mg 24 hr tablet Take 1 tablet by mouth every evening. For frequent urination. amLODIPine (NORVASC) 10 mg tablet Take 1 tablet by mouth once daily. Insulin Finley, Disposable, (PEN NEEDLE) 32 gauge x Use with Toujeo insulin daily and Humalog oxyCODONE-acetaminophen (PERCOCET 10) 10-325 mg tablet TAKE 1 TABLET BY MOUTH 3 TO 4 TIMES DAILY NEEDED FOR PAIN dulaglutide (TRULICITY) 1.5 mg/0.5 mL pen injector Inject 1.5 mg subcutaneously one time a week. metoprolol succinate ER (TOPROL XL) 25 mg 24 hr tablet Take 1 tablet by mouth once daily. ezetimibe-simvastatin 10-20 mg (VYTORIN 10/20) 10-20 mg per tablet Take 1 tablet by mouth daily at bedtime. lancets (ONE TOUCH DELICA) 33 gauge Check blood sugars 3 times daily and as needed for symptoms of sugars being too high or too low. (E11.65, Z79.4) Type 2 diabetes mellitus with hyperglycemia, with long-term current use of insulin (HCC) triamcinolone acetonide (KENALOG) 0.1 % cream Apply 1 application to affected area as needed. daily as needed alfuzosin SR (UROXATRAL) 10 mg 24 hr tablet Take 1 tablet by mouth once daily. blood sugar diagnostic (ONETOUCH VERIO TEST STRIPS) test strip Test blood sugar(s) three times daily. Dx: Type 2 DM - Controlled E11.9 Insulin: Yes insulin glargine U-300 conc (TOUJEO) 300 unit/mL (1.5 mL) Inject 16 Units subcutaneously daily at bedtime. insulin lispro (HUMALOG KWIKPEN) 100 unit/mL Inject 8 Units subcutaneously daily with breakfast AND 10 Units daily with dinner. nystatin (MYCOSTATIN) cream Apply to affected area twice daily. Apply for 7 days to penile rash. ONETOUCH VERIO SYSTEM misc Aspirin 81 mg tab Take 1 tablet by mouth once daily. Take with food. COMPOUNDED PRESCRIPTION Initiate CPAP @ 11 cm of water with humidification. Mask (per patient preference) optional chin strap (if indicated) tubing , filters, humidifier and lifetime supplies. Dx. DEONDRE 327.23 CENTRUM SILVER TAB Take one(1) tablet daily. VITAMIN C 500 MG TAB Take one(1) tablet daily. No current facility-administered medications for this visit. Allergies: Diovan [Valsartan] This note was partially generated using [email or web address] voice recognition system, and there may be some incorrect words, spellings, and punctuation that were not noted in checking the note before saving. Arlen Jamil PA-C [facility] 10-13-2022 Note HNO ID: [id number] Author: Neli Joy Service: ? Author Type: ? Type: Progress Notes Filed: 10/13/2022 1:57 PM Note Text: Patient presents with: Right Wrist - Established Patient, Post Op: 1 week 4 days post R CTR Patient reports no pain in his hand at this time. He takes percocet daily for back pain. He states he has more feeling in the hand. [facility] 10-13-2022 History of Present illness Narrative Arlen Jamil PA-C Department of Orthopaedics Orthopaedics [address] [facility] [address] Dept: [phone] Dept October 13, 2022 CHIEF COMPLAINT: Established Patient and Post Op of the Right Wrist (1 week 4 days post R CTR). ASSESSMENT: G56.01 Right carpal tunnel syndrome (primary encounter diagnosis) SUMMARY/PLAN: Patient presents 1 week and 4 days status post right carpal tunnel release. He is doing much better, not having the same pain that he was having previously in the hand, still however having numbness in the radial 3 digits. We discussed proper hand washing, no soaking of the operative hand. No heavy lifting, pushing or pulling with the operative hand, encourage gentle motion. We discussed scar massage. Follow up as planned. Exam: Right palm incision site is well approximated without erythema or drainage. There is mild but appropriate edema at the base of the palm, no ecchymosis noted. Patient is able to form a full composite fist and extend all digits, subjective numbness in the radial 3 digits. Imaging: Deferred today. Mr. Renzo Mead was advised as to contrast therapies and/or to take analgesics/anti-inflammatories as needed and all contraindications were reviewed. Supporting Information Below: Medications: Current Outpatient Medications Medication Sig DULoxetine (CYMBALTA) 30 mg capsule Take 30 mg by mouth once daily. oxybutynin ER (DITROPAN XL) 10 mg 24 hr tablet Take 1 tablet by mouth every evening. For frequent urination. amLODIPine (NORVASC) 10 mg tablet Take 1 tablet by mouth once daily. Insulin Finley, Disposable, (PEN NEEDLE) 32 gauge x 5/32 Use with Toujeo insulin daily and Humalog oxyCODONE-acetaminophen (PERCOCET 10) 10-325 mg tablet TAKE 1 TABLET BY MOUTH 3 TO 4 TIMES DAILY NEEDED FOR PAIN dulaglutide (TRULICITY) 1.5 mg/0.5 mL pen injector Inject 1.5 mg subcutaneously one time a week. metoprolol succinate ER (TOPROL XL) 25 mg 24 hr tablet Take 1 tablet by mouth once daily. ezetimibe-simvastatin 10-20 mg (VYTORIN 10/20) 10-20 mg per tablet Take 1 tablet by mouth daily at bedtime. lancets (ONE TOUCH DELICA) 33 gauge Check blood sugars 3 times daily and as needed for symptoms of sugars being too high or too low. (E11.65, Z79.4) Type 2 diabetes mellitus with hyperglycemia, with long-term current use of insulin (HCC) triamcinolone acetonide (KENALOG) 0.1 % cream Apply 1 application to affected area as needed. daily as needed alfuzosin SR (UROXATRAL) 10 mg 24 hr tablet Take 1 tablet by mouth once daily. blood sugar diagnostic (ONETOUCH VERIO TEST STRIPS) test strip Test blood sugar(s) three times daily. Dx: Type 2 DM - Controlled E11.9 Insulin: Yes insulin glargine U-300 conc (TOUJEO) 300 unit/mL (1.5 mL) Inject 16 Units subcutaneously daily at bedtime. insulin lispro (HUMALOG KWIKPEN) 100 unit/mL Inject 8 Units subcutaneously daily with breakfast AND 10 Units daily with dinner. nystatin (MYCOSTATIN) cream Apply to affected area twice daily. Apply for 7 days to penile rash. ONETOUCH VERIO SYSTEM misc Aspirin 81 mg tab Take 1 tablet by mouth once daily. Take with food. COMPOUNDED PRESCRIPTION Initiate CPAP @ 11 cm of water with humidification. Mask (per patient preference) optional chin strap (if indicated) tubing , filters, humidifier and lifetime supplies. Dx. DEONDRE 327.23 CENTRUM SILVER TAB Take one(1) tablet daily. VITAMIN C 500 MG TAB Take one(1) tablet daily. No current facility-administered medications for this visit. Allergies: Diovan [Valsartan] This note was partially generated using [email or web address] voice recognition system, and there may be some incorrect words, spellings, and punctuation that were not noted in checking the note before saving. Arlen Jamil PA-C Patient presents with: Right Wrist - Established Patient, Post Op: 1 week 4 days post R CTR Patient reports no pain in his hand at this time. He takes percocet daily for back pain. He states he has more feeling in the hand. documented in this encounter [facility] 09-22-2022 Miscellaneous Notes Surgical request completed. Post op appointments scheduled and mailed to patient. Patient scheduled for Right CTR on 10/02/22. documented in this encounter [facility] 09-18-2022 Note HNO ID: [id number] Author: Bang Mitchell MD Service: ? Author Type: Physician Type: Progress Notes Filed: 09/18/2022 12:57 PM Note Text: Bang Mitchell MD Department of Orthopaedics Orthopaedics [address] [place] [address] Dept: [phone] Dept September 18, 2022 CHIEF COMPLAINT: Established Patient and Pain of the Right Hand HPI Patient here today for 10 weeks post visit [facility] right thumb. He would like to discuss getting an injection today vs surgery. ASSESSMENT: G56.01 Carpal tunnel syndrome of right wrist (primary encounter diagnosis) PLAN: We had a lengthy discussion about his carpal tunnel. Yes, he has arthritis at the base of the thumb but the numbness in his index, middle and ring finger was causing him the most trouble. We reviewed possible diagnostic and prognostic value for nerve test we also reviewed possible cortisone injection. He is doing great with his hemoglobin A1c's and does not want to risk that with a cortisone injection. We reviewed the risks, benefits, alternatives and potential complications involving both operative and nonoperative care. He would like to pursue surgery under local anesthetic for the carpal tunnel on the right. Mr. Renzo Mead was advised as to contrast therapies and/or to take analgesics/anti-inflammatories as needed and all contraindications were reviewed. OBJECTIVE: Mr. Renzo Mead is a pleasant 87 year old in no apparent distress. Gen:There were no vitals taken for this visit. nl development, non obese, no deformities ENT: Normocephalic, normal hearing, moist mucosa CV: Pulses:Radial= 2+ and symmetric, capillary refill < 2 secs, no peripheral edema/varicosities Skin: no rash, bruising or lesions. Good turgor. Psych: cooperative and appropriate, alert and oriented x 3, good mood and affect. Musculoskeletal: Diminished light touch sensation in the median nerve distribution. Normal in the radial and ulnar nerves. He has positive Tinel's and positive median nerve compression test of the right wrist. Negative Tinel's at the elbow. Negative Tinel's on the ulnar side of the wrist. Imaging: Deferred today Supporting Subjective Information Below: Past Surgical History: PAST SURGICAL HISTORY Procedure Laterality Date CATARACT EXTRACTION W/ INTRAOCULAR LENS IMPLANT HX Bilateral COLONOSCOPY FLX DX W/COLLJ SPEC WHEN PFRMD 01/13/2007 COLSC FLX W/RMVL OF TUMOR POLYP LESION SNARE TQ 01/05/2006 PAST SURGICAL HISTORY OF 1997 epigastric hernia repair in abdomen PAST SURGICAL HISTORY OF 1996 right lower leg- hemorrhage PAST SURGICAL HISTORY OF 2015 Lumbar surgery, [facility] Medications: Current Outpatient Medications Medication Sig DULoxetine (CYMBALTA) 30 mg capsule Take 30 mg by mouth once daily. oxybutynin ER (DITROPAN XL) 10 mg 24 hr tablet Take 1 tablet by mouth every evening. For frequent urination. amLODIPine (NORVASC) 10 mg tablet Take 1 tablet by mouth once daily. oxyCODONE-acetaminophen (PERCOCET 10) 10-325 mg tablet TAKE 1 TABLET BY MOUTH 3 TO 4 TIMES DAILY NEEDED FOR PAIN dulaglutide (TRULICITY) 1.5 mg/0.5 mL pen injector Inject 1.5 mg subcutaneously one time a week. metoprolol succinate ER (TOPROL XL) 25 mg 24 hr tablet Take 1 tablet by mouth once daily. ezetimibe-simvastatin 10-20 mg (VYTORIN 10/) 10-20 mg per tablet Take 1 tablet by mouth daily at bedtime. triamcinolone acetonide (KENALOG) 0.1 % cream Apply 1 application to affected area as needed. daily as needed alfuzosin SR (UROXATRAL) 10 mg 24 hr tablet Take 1 tablet by mouth once daily. insulin glargine U-300 conc (TOUJEO) 300 unit/mL (1.5 mL) Inject 16 Units subcutaneously daily at bedtime. insulin lispro (HUMALOG KWIKPEN) 100 unit/mL Inject 8 Units subcutaneously daily with breakfast AND 10 Units daily with dinner. nystatin (MYCOSTATIN) cream Apply to affected area twice daily. Apply for 7 days to penile rash. Aspirin 81 mg tab Take 1 tablet by mouth once daily. Take with food. CENTRUM SILVER TAB Take one(1) tablet daily. VITAMIN C 500 MG TAB Take one(1) tablet daily. Insulin Finley, Disposable, (PEN NEEDLE) 32 gauge x 5/32 Use with Toujeo insulin daily and Humalog lancets (ONE TOUCH DELICA) 33 gauge Check blood sugars 3 times daily and as needed for symptoms of sugars being too high or too low. (E11.65, Z79.4) Type 2 diabetes mellitus with hyperglycemia, with long-term current use of insulin (HCC) blood sugar diagnostic (ONETOUCH VERIO TEST STRIPS) test strip Test blood sugar(s) three times daily. Dx: Type 2 DM - Controlled E11.9 Insulin: Yes ONETOUCH VERIO SYSTEM misc COMPOUNDED PRESCRIPTION Initiate CPAP @ 11 cm of water with humidification. Mask (per patient preference) optional chin strap (if indicated) tubing , filters, humidifier and lifetime supplies. Dx. DEONDRE 327.23 No current facility-administered medications for this visit. Allergies: Diovan [ (more content not included)... [facility] 09-18-2022 History of Present illness Narrative Bang Mitchell MD Department of Orthopaedics Orthopaedics [address] [facility] [address] Dept: [phone] Dept September 18, 2022 CHIEF COMPLAINT: Established Patient and Pain of the Right Hand HPI Patient here today for 10 weeks post visit [facility] right thumb. He would like to discuss getting an injection today vs surgery. ASSESSMENT: G56.01 Carpal tunnel syndrome of right wrist (primary encounter diagnosis) PLAN: We had a lengthy discussion about his carpal tunnel. Yes, he has arthritis at the base of the thumb but the numbness in his index, middle and ring finger was causing him the most trouble. We reviewed possible diagnostic and prognostic value for nerve test we also reviewed possible cortisone injection. He is doing great with his hemoglobin A1c's and does not want to risk that with a cortisone injection. We reviewed the risks, benefits, alternatives and potential complications involving both operative and nonoperative care. He would like to pursue surgery under local anesthetic for the carpal tunnel on the right. Mr. Renzo Mead was advised as to contrast therapies and/or to take analgesics/anti-inflammatories as needed and all contraindications were reviewed. OBJECTIVE: Mr. Renzo Mead is a pleasant 87 year old in no apparent distress. Gen:There were no vitals taken for this visit. nl development, non obese, no deformities ENT: Normocephalic, normal hearing, moist mucosa CV: Pulses:Radial= 2+ and symmetric, capillary refill < 2 secs, no peripheral edema/varicosities Skin: no rash, bruising or lesions. Good turgor. Psych: cooperative and appropriate, alert and oriented x 3, good mood and affect. Musculoskeletal: Diminished light touch sensation in the median nerve distribution. Normal in the radial and ulnar nerves. He has positive Tinel's and positive median nerve compression test of the right wrist. Negative Tinel's at the elbow. Negative Tinel's on the ulnar side of the wrist. Imaging: Deferred today Supporting Subjective Information Below: Past Surgical History: PAST SURGICAL HISTORY Procedure Laterality Date CATARACT EXTRACTION W/ INTRAOCULAR LENS IMPLANT HX Bilateral COLONOSCOPY FLX DX W/COLLJ SPEC WHEN PFRMD 01/13/2007 COLSC FLX W/RMVL OF TUMOR POLYP LESION SNARE TQ 01/05/2006 PAST SURGICAL HISTORY OF 1997 epigastric hernia repair in abdomen PAST SURGICAL HISTORY OF 1996 right lower leg- hemorrhage PAST SURGICAL HISTORY OF 2015 Lumbar surgery, [facility] Medications: Current Outpatient Medications Medication Sig DULoxetine (CYMBALTA) 30 mg capsule Take 30 mg by mouth once daily. oxybutynin ER (DITROPAN XL) 10 mg 24 hr tablet Take 1 tablet by mouth every evening. For frequent urination. amLODIPine (NORVASC) 10 mg tablet Take 1 tablet by mouth once daily. oxyCODONE-acetaminophen (PERCOCET 10) 10-325 mg tablet TAKE 1 TABLET BY MOUTH 3 TO 4 TIMES DAILY NEEDED FOR PAIN dulaglutide (TRULICITY) 1.5 mg/0.5 mL pen injector Inject 1.5 mg subcutaneously one time a week. metoprolol succinate ER (TOPROL XL) 25 mg 24 hr tablet Take 1 tablet by mouth once daily. ezetimibe-simvastatin 10-20 mg (VYTORIN 10/20) 10-20 mg per tablet Take 1 tablet by mouth daily at bedtime. triamcinolone acetonide (KENALOG) 0.1 % cream Apply 1 application to affected area as needed. daily as needed alfuzosin SR (UROXATRAL) 10 mg 24 hr tablet Take 1 tablet by mouth once daily. insulin glargine U-300 conc (TOUJEO) 300 unit/mL (1.5 mL) Inject 16 Units subcutaneously daily at bedtime. insulin lispro (HUMALOG KWIKPEN) 100 unit/mL Inject 8 Units subcutaneously daily with breakfast AND 10 Units daily with dinner. nystatin (MYCOSTATIN) cream Apply to affected area twice daily. Apply for 7 days to penile rash. Aspirin 81 mg tab Take 1 tablet by mouth once daily. Take with food. CENTRUM SILVER TAB Take one(1) tablet daily. VITAMIN C 500 MG TAB Take one(1) tablet daily. Insulin Finley, Disposable, (PEN NEEDLE) 32 gauge x 5/32 Use with Toujeo insulin daily and Humalog lancets (ONE TOUCH DELICA) 33 gauge Check blood sugars 3 times daily and as needed for symptoms of sugars being too high or too low. (E11.65, Z79.4) Type 2 diabetes mellitus with hyperglycemia, with long-term current use of insulin ([facility]) blood sugar diagnostic (ONETOUCH VERIO TEST STRIPS) test strip Test blood sugar(s) three times daily. Dx: Type 2 DM - Controlled E11.9 Insulin: Yes ONETOUCH VERIO SYSTEM [facility] COMPOUNDED PRESCRIPTION Initiate CPAP @ 11 cm of water with humidification. Mask (per patient preference) optional chin strap (if indicated) tubing , filters, humidifier and lifetime supplies. Dx. DEONDRE 327.23 No current facility-administered medications for this visit. Allergies: Diovan [Valsartan] ROS: General (negative for fatigue, malaise, weight loss/gain) HEENT (negative for headache, earache, recent vision changes, sinus pain, sore throat) Respiratory (no recent shortness of breath, hemoptysis) CV (negative for chest tightness, palpitations) Musculoskeletal (see HPI) Psych (no depression, anxiety) Bang Mitchell MD documented in this encounter [facility] 09-03-2022 Note HNO ID: [id number] Author: Carrie Cantu APRN.[employer]LAY WORK[employer] Service: ? Author Type: Nurse Practitioner Type: Progress Notes Filed: 09/03/2022 2:39 PM Note Text: CC: Patient presents with: Medicare Wellness Exam: Annual Exam HPI Renzo Mead is a 87 year old male who presents today for follow-up Diabetes: Home blood sugar readings: fasting in the 110's and post prandial in the 200's Hypoglycemia: No He is compliant with medication(s) and is tolerating med(s) without any side effects except he did not realize he was supposed to take a second dose of Humalog with supper Last Ophthalmology exam was within the past 6 months Patient's last HgA1C was Hemoglobin A1C (%) Date Value 09/13/2021 7.4 06/06/2021 7.6 03/12/2021 9.2 09/07/2020 10.8 Hemoglobin A1C (POCT) (%) Date Value 01/15/2022 7.2 HTN-Medication changes:No Taking all medications as prescribed: Yes Side effects: No Home BP's: No Denies: headache, chest pain, palpitations, dyspnea, and peripheral edema. Last 3 Encounter BP Readings: Date: BP: 09/03/2022 122/66 06/23/2022 120/62 06/16/2022 122/58 Urinary frequency- controlled with oxybutynin Chronic back pain: pain management Dr. Carreno. He was taken off Butrans patch due to lack of efficacy and put back on oxycodone 10/325 mg as needed. Patient reports pain relief has improved with oxycodone and is manageable now. REVIEW OF SYSTEMS See HPI PAST MEDICAL HISTORY Diagnosis Date Abdominal pain, left upper quadrant 07/11/2009 JOAN (acute kidney injury) (HCC) 10/07/2019 Anemia due to stage 4 chronic kidney disease (HCC) 07/08/2020 Benign neoplasm of colon Bursitis of right hip 11/10/2011 Congenital pes planus 06/30/2006 Disorder of right rotator cuff 05/17/2013 Obstructive sleep apnea Personal history of colonic polyps 07/11/2009 Pure hypercholesterolemia Type 2 diabetes mellitus with hyperglycemia, with long-term current use of insulin (HCC) 06/22/2014 Type II or unspecified type diabetes mellitus without mention of complication, uncontrolled Unspecified essential hypertension Unsteady gait 06/22/2014 PAST SURGICAL HISTORY Procedure Laterality Date CATARACT EXTRACTION W/ INTRAOCULAR LENS IMPLANT HX Bilateral COLONOSCOPY FLX DX W/COLLJ SPEC WHEN PFRMD 01/13/2007 COLSC FLX W/RMVL OF TUMOR POLYP LESION SNARE TQ 01/05/2006 PAST SURGICAL HISTORY OF 1997 epigastric hernia repair in abdomen PAST SURGICAL HISTORY OF 1996 right lower leg- hemorrhage PAST SURGICAL HISTORY OF 2015 Lumbar surgery, [facility] ALLERGIES Diovan [Valsartan] MEDICATIONS DULoxetine (CYMBALTA) 30 mg capsule Take 30 mg by mouth once daily. oxybutynin ER (DITROPAN XL) 10 mg 24 hr tablet Take 1 tablet by mouth every evening. For frequent urination. amLODIPine (NORVASC) 10 mg tablet Take 1 tablet by mouth once daily. Insulin Finley, Disposable, (PEN NEEDLE) 32 gauge x Use with Toujeo insulin daily and Humalog oxyCODONE-acetaminophen (PERCOCET 10) 10-325 mg tablet TAKE 1 TABLET BY MOUTH 3 TO 4 TIMES DAILY NEEDED FOR PAIN dulaglutide (TRULICITY) 1.5 mg/0.5 mL pen injector Inject 1.5 mg subcutaneously one time a week. metoprolol succinate ER (TOPROL XL) 25 mg 24 hr tablet Take 1 tablet by mouth once daily. ezetimibe-simvastatin 10-20 mg (VYTORIN 10/20) 10-20 mg per tablet Take 1 tablet by mouth daily at bedtime. lancets (ONE TOUCH DELClickFacts) 33 gauge Check blood sugars 3 times daily and as needed for symptoms of sugars being too high or too low. (E11.65, Z79.4) Type 2 diabetes mellitus with hyperglycemia, with long-term current use of insulin (HCC) triamcinolone acetonide (KENALOG) 0.1 % cream Apply 1 application to affected area as needed. daily as needed alfuzosin SR (UROXATRAL) 10 mg 24 hr tablet Take 1 tablet by mouth once daily. blood sugar diagnostic ([employer] VERIO TEST STRIPS) test strip Test blood sugar(s) three times daily. Dx: Type 2 DM - Controlled E11.9 Insulin: Yes insulin glargine U-300 conc (TOUJEO) 300 unit/mL (1.5 mL) Inject 16 Units subcutaneously daily at bedtime. insulin lispro (HUMALOG KWIKPEN) 100 unit/mL Inject 8 Units subcutaneously daily with breakfast AND 10 Units daily with dinner. nystatin (MYCOSTATIN) cream Apply to affected area twice daily. Apply for 7 days to penile rash. [employer] SYSTEM misc Aspirin 81 mg tab Take 1 tablet by mouth once daily. Take with food. COMPOUNDED PRESCRIPTION Initiate CPAP @ 11 cm of water with humidification. Mask (per patient preference) optional chin strap (if indicated) tubing , filters, humidifier and lifetime supplies. Dx. DEONDRE 327.23 CENTRUM SILVER TAB Take one(1) tablet daily. VITAMIN C 500 MG TAB Take one(1) tablet daily. FAMILY HISTORY Problem Relation Age of Onset Diabetes Mother Heart Mother No Ocular Disease Mother No Ocular Disease Father other (Other) Father ? anerysm Social History Tobacco Use Smoking status: Former Packs/day: 0.50 Ye (more content not included)... [facility] 09-03-2022 Note HNO ID: [id number] Author: Carrie Cantu APRN.RELAY WORKER Service: ? Author Type: Nurse Practitioner Type: Progress Notes Filed: 09/03/2022 2:39 PM Note Text: Renzo Mead is a 87 year old male here for a Medicare Subsequent Annual Wellness Visit Health Risk Assessment In general, health is: Good Concerns with balance:not when he walks with the cane Concerns with teeth or dentures:Not at all Concerns with sexual function:prefers not to answer Sharon anxious, stressed, angry, irritable, lonely, isolated, or had thoughts of hurting themself: Not at all Has little interest or pleasure in doing things: Not at all Bothered by feeling down, depressed, or hopeless: Not at all Needs help with grocery shopping, cooking, housework, bathing, grooming, dressing, eating, sitting or standing, walking, using the toilet, handling finances, taking medications, using the telephone, or driving: No Following safety precautions in the home environment and vehicle: removed throw rugs from floors, installed grab bars in the bathroom, handrails in stairwells, having adequate lighting, wearing seatbelt at all times?: Yes Smokes cigarettes, vapes, or chew tobacco: No Eats healthy foods including fruits, vegetables, whole grains, and fiber-rich foods: not much fruits/vegetables, eats a lot of sweets Number of days per week engages in exercise: sedentary due to chronic low back pain and mobility issues Average alcohol consumption: no Current Providers Specialists: I have reviewed specialist-related care of the patient in the medical record. Current care team: Patient Care Team: Buck Bishop MD as PCP - General (Internal Medicine) Orthopedics- Dr. Mitchell Outside specialists seen: pain management- Dr. 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 Opioid use review Patient is currently using opioids. Prescribed oxycodone HCl/acetaminophen (last 90 days) Does patient have risk factors for opioid abuse? No Pain overview Current pain concerns and treatment plan reviewed. Patient stable on current treatment plan. Depression screening Depression Screening PHQ-2 Score PHQ-9 Score DEANGELO-2 Total Score 09/03/2022 0 - - Depression screening tool completed and reviewed. Based on score and interview, patient is not at risk for depression. Screening tool discussed with patient, and I recommended no further intervention at this time. Cognitive screening Mini Cog Score: Score: 1 Cognitive screening reviewed and recommended referral for further evaluation (score 0-2), patient declined Functional Observation Was the patient's timed Up AND Go test unsteady or ? 12 seconds? No Advance Care Planning End of Life planning discussed, including patient's advanced directive wishes: Yes Measurements BP 122/66 Pulse 72 Resp 16 Ht 5' 7.441 (1.71m) Wt 195 lb (88.5kg) BMI 30.14 kg/(m2). Visual acuity (required for Welcome to Medicare): follows with optometry/ophthalmology Hearing Evaluation: hard of hearing, wears hearing aids bilaterally ASSESSMENT/PLAN: 1. Medicare annual wellness visit, subsequent - ICD9: V70.0, ICD10: Z00.00 (primary diagnosis) The following prevention plan was discussed during the office visit and provided to the patient: - fall risk reduction - Counseled on healthy diet and regular exercise - Patient was counseled [id number] by myself (the billing provider) for the following immunizations and vaccine components, including side effects: Shingrix. Patient declined - follow-up for medicare annual exam in one year Carrie Cantu APRN.CNP [facility] 09-03-2022 History of Present illness Narrative CC: Patient presents with: Medicare Wellness Exam: Annual Exam HPI Renzo Mead is a 87 year old male who presents today for follow-up Diabetes: Home blood sugar readings: fasting in the 110's and post prandial in the 200's Hypoglycemia: No He is compliant with medication(s) and is tolerating med(s) without any side effects except he did not realize he was supposed to take a second dose of Humalog with supper Last Ophthalmology exam was within the past 6 months Patient's last HgA1C was Hemoglobin A1C (%) Date Value 09/13/2021 7.4 06/06/2021 7.6 03/12/2021 9.2 09/07/2020 10.8 Hemoglobin A1C (POCT) (%) Date Value 01/15/2022 7.2 HTN-Medication changes:No Taking all medications as prescribed: Yes Side effects: No Home BP's: No Denies: headache, chest pain, palpitations, dyspnea, and peripheral edema. Last 3 Encounter BP Readings: Date: BP: 09/03/2022 122/66 06/23/2022 120/62 06/16/2022 122/58 Urinary frequency- controlled with oxybutynin Chronic back pain: pain management Dr. Carreno. He was taken off Butrans patch due to lack of efficacy and put back on oxycodone 10/325 mg as needed. Patient reports pain relief has improved with oxycodone and is manageable now. REVIEW OF SYSTEMS See HPI PAST MEDICAL HISTORY Diagnosis Date Abdominal pain, left upper quadrant 07/11/2009 JOAN (acute kidney injury) ([facility]) 10/07/2019 Anemia due to stage 4 chronic kidney disease (HCC) 07/08/2020 Benign neoplasm of colon Bursitis of right hip 11/10/2011 Congenital pes planus 06/30/2006 Disorder of right rotator cuff 05/17/2013 Obstructive sleep apnea Personal history of colonic polyps 07/11/2009 Pure hypercholesterolemia Type 2 diabetes mellitus with hyperglycemia, with long-term current use of insulin ([facility]) 06/22/2014 Type II or unspecified type diabetes mellitus without mention of complication, uncontrolled Unspecified essential hypertension Unsteady gait 06/22/2014 PAST SURGICAL HISTORY Procedure Laterality Date CATARACT EXTRACTION W/ INTRAOCULAR LENS IMPLANT HX Bilateral COLONOSCOPY FLX DX W/COLLJ SPEC WHEN PFRMD 01/13/2007 COLSC FLX W/RMVL OF TUMOR POLYP LESION SNARE TQ 01/05/2006 PAST SURGICAL HISTORY OF 1997 epigastric hernia repair in abdomen PAST SURGICAL HISTORY OF 1996 right lower leg- hemorrhage PAST SURGICAL HISTORY OF 2015 Lumbar surgery, [facility] ALLERGIES Diovan [Valsartan] MEDICATIONS DULoxetine (CYMBALTA) 30 mg capsule Take 30 mg by mouth once daily. oxybutynin ER (DITROPAN XL) 10 mg 24 hr tablet Take 1 tablet by mouth every evening. For frequent urination. amLODIPine (NORVASC) 10 mg tablet Take 1 tablet by mouth once daily. Insulin Finley, Disposable, (PEN NEEDLE) 32 gauge x /32 Use with Toujeo insulin daily and Humalog oxyCODONE-acetaminophen (PERCOCET 10) 10-325 mg tablet TAKE 1 TABLET BY MOUTH 3 TO 4 TIMES DAILY NEEDED FOR PAIN dulaglutide (TRULICITY) 1.5 mg/0.5 mL pen injector Inject 1.5 mg subcutaneously one time a week. metoprolol succinate ER (TOPROL XL) 25 mg 24 hr tablet Take 1 tablet by mouth once daily. ezetimibe-simvastatin 10-20 mg (VYTORIN 10/20) 10-20 mg per tablet Take 1 tablet by mouth daily at bedtime. lancets (ONE TOUCH DELClickFacts) 33 gauge Check blood sugars 3 times daily and as needed for symptoms of sugars being too high or too low. (E11.65, Z79.4) Type 2 diabetes mellitus with hyperglycemia, with long-term current use of insulin (HCC) triamcinolone acetonide (KENALOG) 0.1 % cream Apply 1 application to affected area as needed. daily as needed alfuzosin SR (UROXATRAL) 10 mg 24 hr tablet Take 1 tablet by mouth once daily. blood sugar diagnostic ([employer] VERIO TEST STRIPS) test strip Test blood sugar(s) three times daily. Dx: Type 2 DM - Controlled E11.9 Insulin: Yes insulin glargine U-300 conc (TOUJEO) 300 unit/mL (1.5 mL) Inject 16 Units subcutaneously daily at bedtime. insulin lispro (HUMALOG KWIKPEN) 100 unit/mL Inject 8 Units subcutaneously daily with breakfast AND 10 Units daily with dinner. nystatin (MYCOSTATIN) cream Apply to affected area twice daily. Apply for 7 days to penile rash. Tixie ([employer] VERIO SYSTEM misc Aspirin 81 mg tab Take 1 tablet by mouth once daily. Take with food. COMPOUNDED PRESCRIPTION Initiate CPAP @ 11 cm of water with humidification. Mask (per patient preference) optional chin strap (if indicated) tubing , filters, humidifier and lifetime supplies. Dx. DEONDRE 327.23 CENTRUM SILVER TAB Take one(1) tablet daily. VITAMIN C 500 MG TAB Take one(1) tablet daily. FAMILY HISTORY Problem Relation Age of Onset Diabetes Mother Heart Mother No Ocular Disease Mother No Ocular Disease Father other (Other) Father ? anerysm Social History Tobacco Use Smoking status: Former Packs/day: 0.50 Years: 15.00 Total pack years: 7.50 Types: Cigarettes Quit date: 01/16/1958 Years since quittin.6 Smokeless tobacco: Never Vaping Use Vaping Use: Never used Substance Use Topics Alcohol use: No Drug use: No PHYSICAL EXAM BP 122/66 Pulse 72 Resp 16 Ht 171.3 cm (5' 7.44 ) Wt 88.5 kg (195 lb) BMI 30.14 kg/m General Appearance: well appearing, in no acute distress, alert Lungs: Lungs clear to auscultation. No wheezing, rhonchi, rales. Heart: RRR without murmur, gallop, or rubs. No ectopy Health maintenance reviewed with patient: ADVANCE DIRECTIVE DISCUSSION due on 02/16/2022 DEPRESSION ASSESSMENT due on 02/16/2022 DIABETIC FOOT EXAM due on 03/18/2022 LDL CHOLESTEROL due on 06/06/2022 HBA1C due on 07/15/2022 SHINGRIX VACCINE(1 of 2) due on 09/04/2023 COVID-19 VACCINE(6 - Pfizer series) due on 09/04/2023 INFLUENZA(1) due on 10/17/2022 DILATED RETINAL EXAM due on 04/03/2023 PNEUMOCOCCAL: 65+ Completed DTAP,TDAP,TD Discontinued DATA REVIEWED: Most recent labs ASSESSMENT/PLAN: 1. Medicare annual wellness visit, subsequent - ICD9: V70.0, ICD10: Z00.00 (primary diagnosis) See wellness note 2. Type 2 diabetes mellitus with stage 4 chronic kidney disease, with long-term current use of insulin (HCC) - ICD9: 250.40, 585.4, V58.67, ICD10: E11.22, N18.4, Z79.4 - Control undetermined, due for labs - Continue current medications, reviewed the need to take Humalog 10 units with supper as well. See patient instructions - eGFR: Stable - Albuminuria: due for urine ACR - Counseled on avoiding NSAIDs, adequate hydration - Counseled on low sodium diet - Follow up with kidney medicine - HGB A1C - ALBUMIN/CREAT RATIO RND UR - CBC + DIFF - COMP METABOLIC PANEL 3. Essential hypertension - ICD9: 401.9, ICD10: I10 - Controlled - Continue current medications - Recommend home blood pressure monitoring, to bring results to next visit - Encouraged sodium restriction, DASH or Mediterranean diet - CBC + DIFF - COMP METABOLIC PANEL 4. Hyperlipidemia, unspecified hyperlipidemia type - ICD9: 272.4, ICD10: E78.5 - Control undetermined, due for labs - Continue current medications - LIPID PANEL, NONFASTING 5. Frequency of urination - ICD9: 788.41, ICD10: R35.0 Stable - OXYBUTYNIN CHLORIDE ER 10 MG TABLET,EXTENDED RELEASE 24 HR 6. Left sided sciatica - ICD9: 724.3, ICD10: M54.32 Medications and treatment per pain management 7. Anemia due to stage 4 chronic kidney disease (HCC) - ICD9: 285.21, 585.4, ICD10: N18.4, D63.1 Recheck Prescription instructions reviewed with patient as applicable. Potential red flag symptoms discussed with the patient. Reviewed appropriate action plan to take if red flag symptoms occur. Patient agreeable to treatment plan. Carrie Cantu APRN.CNP Renzo Mead is a 87 year old male here for a Medicare Subsequent Annual Wellness Visit Health Risk Assessment In general, health is: Good Concerns with balance:not when he walks with the cane Concerns with teeth or dentures:Not at all Concerns with sexual function:prefers not to answer Sharon anxious, stressed, angry, irritable, lonely, isolated, or had thoughts of hurting themself: Not at all Has little interest or pleasure in doing things: Not at all Bothered by feeling down, depressed, or hopeless: Not at all Needs help with grocery shopping, cooking, housework, bathing, grooming, dressing, eating, sitting or standing, walking, using the toilet, handling finances, taking medications, using the telephone, or driving: No Following safety precautions in the home environment and vehicle: removed throw rugs from floors, installed grab bars in the bathroom, handrails in stairwells, having adequate lighting, wearing seatbelt at all times?: Yes Smokes cigarettes, vapes, or chew tobacco: No Eats healthy foods including fruits, vegetables, whole grains, and fiber-rich foods: not much fruits/vegetables, eats a lot of sweets Number of days per week engages in exercise: sedentary due to chronic low back pain and mobility issues Average alcohol consumption: no Current Providers Specialists: I have reviewed specialist-related care of the patient in the medical record. Current care team: Patient Care Team: Buck Bishop MD as PCP - General (Internal Medicine) Orthopedics- Dr. Mitchell Outside specialists seen: pain management- Dr. 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 Opioid use review Patient is currently using opioids. Prescribed oxycodone HCl/acetaminophen (last 90 days) Does patient have risk factors for opioid abuse? No Pain overview Current pain concerns and treatment plan reviewed. Patient stable on current treatment plan. Depression screening Depression Screening PHQ-2 Score PHQ-9 Score DEANGELO-2 Total Score 09/03/2022 0 - - Depression screening tool completed and reviewed. Based on score and interview, patient is not at risk for depression. Screening tool discussed with patient, and I recommended no further intervention at this time. Cognitive screening Mini Cog Score: Score: 1 Cognitive screening reviewed and recommended referral for further evaluation (score 0-2), patient declined Functional Observation Was the patient's timed Up & Go test unsteady or ? 12 seconds? No Advance Care Planning End of Life planning discussed, including patient's advanced directive wishes: Yes Measurements BP 122/66 Pulse 72 Resp 16 Ht 5' 7.441 (1.71m) Wt 195 lb (88.5kg) BMI 30.14 kg/(m^2). Visual acuity (required for Welcome to Medicare): follows with optometry/ophthalmology Hearing Evaluation: hard of hearing, wears hearing aids bilaterally ASSESSMENT/PLAN: 1. Medicare annual wellness visit, subsequent - ICD9: V70.0, ICD10: Z00.00 (primary diagnosis) The following prevention plan was discussed during the office visit and provided to the patient: - fall risk reduction - Counseled on healthy diet and regular exercise - Patient was counseled [id number] by myself (the billing provider) for the following immunizations and vaccine components, including side effects: Shingrix. Patient declined - follow-up for medicare annual exam in one year Carrie Cantu APRN.CNP documented in this encounter [facility] 09-03-2022 Instructions Carrie Cantu APRN.CNP - 09/03/2022 2:16 PM EDT Humalog (insulin lispro) 8 units with breakfast and 10 units with supper Toujeo (insuline glargine) units at bedtime Screening schedule The following prevention plan is recommended: WHAT YOU CAN DO TO PREVENT FALLS Many falls can be prevented. By making some changes, you can lower your chances of falling. Four things YOU can do to prevent falls for you* and your caregiver 1. Begin a regular exercise program Exercise is one of the most important ways to lower your chances of falling. It makes you stronger and helps you feel better. Exercises that improve balance and coordination (like Andrews Chi) are the most helpful. Lack of exercise leads to weakness and increases your chances of falling. Ask your doctor or health care provider about the best type of exercise program for you. 2. Have your health care provider review your medicines Have your doctor or pharmacist review all the medicines you take, even ijoo-upm-uljtjgj medicines. As you get older, the way medicines work in your body can change. Some medicines, or combinations of medicines, can make you sleepy or dizzy and can cause you to fall. 3. Have your vision checked Have your eyes checked by an eye doctor at least once a year. You may be wearing the wrong glasses or have a condition like glaucoma or cataracts that limits your vision. Poor vision can increase your chances of falling. 4. Make your home safer About half of all falls happen at home. To make your home safer: Remove things you can trip over (like papers, books, clothes, and shoes) from stairs and places where you walk. Remove small throw rugs or use double-sided tape to keep the rugs from slipping. Keep items you use often in cabinets you can reach easily without using a step stool. Have grab bars put in next to your toilet and in the tub or shower. Use non-slip mats in the bathtub and on shower floors. Improve the lighting in your home. As you get older, you need brighter lights to see well. Hang light-weight curtains or shades to reduce glare. Have handrails and lights put in on all staircases. Wear shoes both inside and outside the house. Avoid going barefoot or wearing slippers. For more information, contact: Centers for Disease Control and Prevention www.cdc.gov/injury * This information may not apply if you have certain medical conditions. documented in this encounter [facility] 08-11-2022 Miscellaneous Notes Last OV: 01/15/22 - Next schedule appt: 09/03/22 Patient has been identified by name and date of : Yes Requested Prescriptions Pending Prescriptions Disp Refills oxybutynin ER (DITROPAN XL) 10 mg 24 hr tablet 30 tablet 2 Sig: Take 1 tablet by mouth every evening. For frequent urination. RX INSTRUCTIONS: Patient aware RX will be sent to pharmacy. No need to notify patient. Summer Codne LPN documented in this encounter [facility] 07-29-2022 Miscellaneous Notes Patient has been identified by name and date of : Yes Last office visit in this department: 01/15/22 RX INSTRUCTIONS: Patient aware RX will be sent to pharmacy. No need to notify patient. Patient phones requesting refills as follows: Requested Prescriptions Pending Prescriptions Disp Refills amLODIPine (NORVASC) 10 mg tablet 90 tablet 3 Sig: Take 1 tablet by mouth once daily. Insulin Finley, Disposable, (PEN NEEDLE) 32 gauge x 5/32 100 Each 3 Sig: Use with Toujeo insulin daily and Humalog Please review and advise. Anni Cox documented in this encounter [facility] 07-10-2022 Note HNO ID: [id number] Author: Tanya Hurd Ma Service: ? Author Type: ? Type: Progress Notes Filed: 08/07/2022 10:40 AM Note Text: Renzo presents for Application of brace. Applied modabber wrist brace to Right wrist. Patient has been instructed in Care of brace. Tanya Hurd Ma [facility] 07-10-2022 Note HNO ID: [id number] Author: Bang Mitchell MD Service: ? Author Type: Physician Type: Progress Notes Filed: 08/07/2022 10:40 AM Note Text: Bang Mitchell MD Department of Orthopaedics Orthopaedics [address] [facility] [address] Dept: [phone] Dept July 10, 2022 CHIEF COMPLAINT: Numbness and Pain of the Right Hand HPI Pt presents to office for consult on right hand pain and numbness. Pt states tingling is worse than the pain, but both are constant. Pt is currently prescribed percocet for back pain which helps to alleviate pain and numbness with the hand. Pt denies loss of function, such as dropping items, related to pain and tingling in right hand. Patient presents with: Right Hand - Numbness, Pain AMB ROOMING INTAKE FLOWSHEET DATA Pain Pain Level: 4 Pain Location: Hand-Right Description: Tingling, Dull, Aching Duration Amount of Time: 3 Duration Units: Weeks Frequency: Continuous Intervention/Comfort measure: Medication (Percocet that he's taking for back pain) ASSESSMENT: M18.11 Primary osteoarthritis of first carpometacarpal joint of right hand (primary encounter diagnosis) R52 Pain PLAN: We reviewed his hand arthritis. Topicals, bracing, etc. FOLLOW UP INSTRUCTIONS: As needed Mr. Renzo Mead was advised as to contrast therapies and/or to take analgesics/anti-inflammatories as needed and all contraindications were reviewed. OBJECTIVE: Mr. Renzo Mead is a pleasant 87 year old in no apparent distress. Gen:There were no vitals taken for this visit. nl development, non obese, no deformities ENT: Normocephalic, normal hearing, moist mucosa CV: Pulses:Radial= 2+ and symmetric, capillary refill < 2 secs, no peripheral edema/varicosities Skin: no rash, bruising or lesions. Good turgor. Psych: cooperative and appropriate, alert and oriented x 3, good mood and affect. Musculoskeletal: Swelling at the basal joint consisent with his OA. Pain on palpation. Mild pain and pos crepitus with Grind testing. Some stiffness and limited motion at the THumb, MCP joint as well. IMAGING: IMPRESSION: 1. Osteoarthritis, as described. 2. Chondrocalcinosis. Atherosclerotic disease. Master Naval Parachutist: FREEDOM Transcribe Date/Time: Jun 16 2022 12:35P Dictated by : MONCHO LANCASTER MD This examination was interpreted and the report reviewed and electronically signed by: MONCHO LANCASTER MD on Jun 16 2022 12:36PM EST Results-Findings * * *Final Report* * * DATE OF EXAM: Jun 16 2022 12:11PM [id number] - XR HAND 3V PA/LAT/OBL RT / PROCEDURE REASON: Right hand pain * * * * Physician Interpretation * * * * TITLE: XR HAND 3V PA/LAT/OBL RT CLINICAL INDICATION: Pain TECHNIQUE: 3 view radiographic study of the right hand COMPARISON: None FINDINGS: No acute fracture or dislocation identified. Severe first carpal metacarpal joint osteoarthritis with severe joint space narrowing, subchondral sclerosis, subchondral cystic change and large marginal osteophyte formation. Mild to moderate triscaphe joint degenerative changes with joint space narrowing and subchondral sclerosis. Moderate to severe first metacarpal phalangeal joint space narrowing with subchondral sclerosis. Chondrocalcinosis in the region of the proximal carpal row and triangular fibrocartilage. Atherosclerotic calcification of the vasculature. Supporting Subjective Information Below: Past Medical History: PAST MEDICAL HISTORY Diagnosis Date Abdominal pain, left upper quadrant 07/11/2009 JOAN (acute kidney injury) ([facility]) 10/07/2019 Anemia due to stage 4 chronic kidney disease ([facility]) 07/08/2020 Benign neoplasm of colon Bursitis of right hip 11/10/2011 Congenital pes planus 06/30/2006 Disorder of right rotator cuff 05/17/2013 Obstructive sleep apnea Personal history of colonic polyps 07/11/2009 Pure hypercholesterolemia Type 2 diabetes mellitus with hyperglycemia, with long-term current use of insulin ([facility]) 06/22/2014 Type II or unspecified type diabetes mellitus without mention of complication, uncontrolled Unspecified essential hypertension Unsteady gait 06/22/2014 Past Surgical History: PAST SURGICAL HISTORY Procedure Laterality Date CATARACT EXTRACTION W/ INTRAOCULAR LENS IMPLANT HX Bilateral COLONOSCOPY FLX DX W/COLLJ SPEC WHEN PFRMD 01/13/2007 COLSC FLX W/RMVL OF TUMOR POLYP LESION SNARE TQ 01/05/2006 PAST SURGICAL HISTORY OF 1997 epigastric hernia repair in abdomen PAST SURGICAL HISTORY OF 1996 right lower leg- hemorrhage PAST SURGICAL HISTORY OF 2015 Lumbar surgery, [facility] Family History: FAMILY HISTORY Problem Relation Age of Onset Diabetes Mother Heart Mother No Ocular Disease Mother No Ocular Disease Father other (Other) Father ? anerysm Social History: Social History Tobacco Use Smoking status: Former Packs/day: 0.50 Years: 15.00 Pack years: 7.50 Types: Cigarette (more content not included)... [facility] 07-10-2022 History of Present illness Narrative Renzo presents for Application of brace. Applied modabber wrist brace to Right wrist. Patient has been instructed in Care of brace. Tanya Hurd Ma Bang Mitchell MD Department of Orthopaedics Orthopaedics [address] [facility] [address] Dept: [phone] Dept July 10, 2022 CHIEF COMPLAINT: Numbness and Pain of the Right Hand HPI Pt presents to office for consult on right hand pain and numbness. Pt states tingling is worse than the pain, but both are constant. Pt is currently prescribed percocet for back pain which helps to alleviate pain and numbness with the hand. Pt denies loss of function, such as dropping items, related to pain and tingling in right hand. Patient presents with: Right Hand - Numbness, Pain AMB ROOMING INTAKE FLOWSHEET DATA Pain Pain Level: 4 Pain Location: Hand-Right Description: Tingling, Dull, Aching Duration Amount of Time: 3 Duration Units: Weeks Frequency: Continuous Intervention/Comfort measure: Medication (Percocet that he's taking for back pain) ASSESSMENT: M18.11 Primary osteoarthritis of first carpometacarpal joint of right hand (primary encounter diagnosis) R52 Pain PLAN: We reviewed his hand arthritis. Topicals, bracing, etc. FOLLOW UP INSTRUCTIONS: As needed Mr. Renzo Mead was advised as to contrast therapies and/or to take analgesics/anti-inflammatories as needed and all contraindications were reviewed. OBJECTIVE: Mr. Renzo Mead is a pleasant 87 year old in no apparent distress. Gen:There were no vitals taken for this visit. nl development, non obese, no deformities ENT: Normocephalic, normal hearing, moist mucosa CV: Pulses:Radial= 2+ and symmetric, capillary refill < 2 secs, no peripheral edema/varicosities Skin: no rash, bruising or lesions. Good turgor. Psych: cooperative and appropriate, alert and oriented x 3, good mood and affect. Musculoskeletal: Swelling at the basal joint consisent with his OA. Pain on palpation. Mild pain and pos crepitus with Grind testing. Some stiffness and limited motion at the THumb, MCP joint as well. IMAGING: IMPRESSION: 1. Osteoarthritis, as described. 2. Chondrocalcinosis. Atherosclerotic disease. Master [employer] Parach[employer]ist: FREEDOM Transcribe Date/Time: Jun 16 2022 12:35P Dictated by : MONCHO LANCASTER MD This examination was interpreted and the report reviewed and electronically signed by: MONCHO LANCASTER MD on Jun 16 2022 12:36PM EST Results-Findings * * *Final Report* * * DATE OF EXAM: Jun 16 2022 12:11PM [id number] - XR HAND 3V PA/LAT/OBL RT / PROCEDURE REASON: Right hand pain * * * * Physician Interpretation * * * * TITLE: XR HAND 3V PA/LAT/OBL RT CLINICAL INDICATION: Pain TECHNIQUE: 3 view radiographic study of the right hand COMPARISON: None FINDINGS: No acute fracture or dislocation identified. Severe first carpal metacarpal joint osteoarthritis with severe joint space narrowing, subchondral sclerosis, subchondral cystic change and large marginal osteophyte formation. Mild to moderate triscaphe joint degenerative changes with joint space narrowing and subchondral sclerosis. Moderate to severe first metacarpal phalangeal joint space narrowing with subchondral sclerosis. Chondrocalcinosis in the region of the proximal carpal row and triangular fibrocartilage. Atherosclerotic calcification of the vasculature. Supporting Subjective Information Below: Past Medical History: PAST MEDICAL HISTORY Diagnosis Date Abdominal pain, left upper quadrant 07/11/2009 JOAN (acute kidney injury) (HCC) 10/07/2019 Anemia due to stage 4 chronic kidney disease (HCC) 07/08/2020 Benign neoplasm of colon Bursitis of right hip 11/10/2011 Congenital pes planus 06/30/2006 Disorder of right rotator cuff 05/17/2013 Obstructive sleep apnea Personal history of colonic polyps 07/11/2009 Pure hypercholesterolemia Type 2 diabetes mellitus with hyperglycemia, with long-term current use of insulin (HCC) 06/22/2014 Type II or unspecified type diabetes mellitus without mention of complication, uncontrolled Unspecified essential hypertension Unsteady gait 06/22/2014 Past Surgical History: PAST SURGICAL HISTORY Procedure Laterality Date CATARACT EXTRACTION W/ INTRAOCULAR LENS IMPLANT HX Bilateral COLONOSCOPY FLX DX W/COLLJ SPEC WHEN PFRMD 01/13/2007 COLSC FLX W/RMVL OF TUMOR POLYP LESION SNARE TQ 01/05/2006 PAST SURGICAL HISTORY OF 1997 epigastric hernia repair in abdomen PAST SURGICAL HISTORY OF 1996 right lower leg- hemorrhage PAST SURGICAL HISTORY OF 2015 Lumbar surgery, [facility] Family History: FAMILY HISTORY Problem Relation Age of Onset Diabetes Mother Heart Mother No Ocular Disease Mother No Ocular Disease Father other (Other) Father ? anerysm Social History: Social History Tobacco Use Smoking status: Former Packs/day: 0.50 Years: 15.00 Pack years: 7.50 Types: Cigarettes Quit date: 01/16/1958 Years since quittin.6 Smokeless tobacco: Never Vaping Use Vaping Use: Never used Substance Use Topics Alcohol use: No Drug use: No Medications: Current Outpatient Medications Medication Sig dulaglutide (TRULICITY) 1.5 mg/0.5 mL pen injector Inject 1.5 mg subcutaneously one time a week. metoprolol succinate ER (TOPROL XL) 25 mg 24 hr tablet Take 1 tablet by mouth once daily. lancets (ONE TOUCH DELICA) 33 gauge Check blood sugars 3 times daily and as needed for symptoms of sugars being too high or too low. (E11.65, Z79.4) Type 2 diabetes mellitus with hyperglycemia, with long-term current use of insulin (HCC) triamcinolone acetonide (KENALOG) 0.1 % cream Apply 1 application to affected area as needed. daily as needed alfuzosin SR (UROXATRAL) 10 mg 24 hr tablet Take 1 tablet by mouth once daily. blood sugar diagnostic (U-Planner.comTOUCH VERIO TEST STRIPS) test strip Test blood sugar(s) three times daily. Dx: Type 2 DM - Controlled E11.9 Insulin: Yes insulin glargine U-300 conc (TOUJEO) 300 unit/mL (1.5 mL) Inject 16 Units subcutaneously daily at bedtime. insulin lispro (HUMALOG KWIKPEN) 100 unit/mL Inject 8 Units subcutaneously daily with breakfast AND 10 Units daily with dinner. nystatin (MYCOSTATIN) cream Apply to affected area twice daily. Apply for 7 days to penile rash. [email or web address] VERIO SYSTEM misc Aspirin 81 mg tab Take 1 tablet by mouth once daily. Take with food. COMPOUNDED PRESCRIPTION Initiate CPAP @ 11 cm of water with humidification. Mask (per patient preference) optional chin strap (if indicated) tubing , filters, humidifier and lifetime supplies. Dx. DEONDRE 327.23 CENTRUM SILVER TAB Take one(1) tablet daily. VITAMIN C 500 MG TAB Take one(1) tablet daily. amLODIPine (NORVASC) 10 mg tablet Take 1 tablet by mouth once daily. Insulin Finley, Disposable, (PEN NEEDLE) 32 gauge x Use with Toujeo insulin daily and Humalog oxyCODONE-acetaminophen (PERCOCET 10) 10-325 mg tablet TAKE 1 TABLET BY MOUTH 3 TO 4 TIMES DAILY NEEDED FOR PAIN benzonatate (TESSALON PERLES) 100 mg capsule Take 2 capsules by mouth three times daily as needed. (Patient not taking: Reported on 07/10/2022) fluticasone (FLONASE) 50 mcg/actuation nasal spray Use 2 Sprays in each nostril once daily. Rinse mouth after use. (Patient not taking: Reported on 07/10/2022) oxybutynin ER (DITROPAN XL) 10 mg 24 hr tablet Take 1 tablet by mouth every evening. For frequent urination. (Patient not taking: Reported on 07/10/2022) ezetimibe-simvastatin 10-20 mg (VYTORIN 10/20) 10-20 mg per tablet Take 1 tablet by mouth daily at bedtime. No current facility-administered medications for this visit. Allergies: Diovan [Valsartan] ROS: General (negative for fatigue, malaise, weight loss/gain) HEENT (negative for headache, earache, recent vision changes, sinus pain, sore throat) Respiratory (no recent shortness of breath, hemoptysis) CV (negative for chest tightness, palpitations) Musculoskeletal (see HPI) Psych (no depression, anxiety) Bang Mitchell MD documented in this encounter [facility] 06-23-2022 Note HNO ID: [id number] Author: Yanira Yeboah APRN.RELAY WORKER Service: ? Author Type: Nurse Practitioner Type: Progress Notes Filed: 06/23/2022 11:27 AM Note Text: Subjective Patient came in with complaints of right thumb first and second finger numbness on the tips. Patient says he was working in his garden and using a hoe. Patient says it started after that. Patient says its been pretty consistent for 3 days. Patient says he has been waking up late in the middle the night with so much pain he has to take a Percocet. Patient states no other symptoms associated with it. The history is provided by the patient. No humanities and languages professor was used. Review of Systems Constitutional: Negative. Skin: Negative. Objective Physical Exam Constitutional: Appearance: Normal appearance. Pulmonary: Effort: Pulmonary effort is normal. Musculoskeletal: Hands: Comments: Patient says he is experiencing the numbness in the areas marked above. Patient is sensitive when they are squeezed. No discoloration deformities or lack of range of motion noted. Neurological: Mental Status: He is alert. PAST MEDICAL HISTORY Diagnosis Date Abdominal pain, left upper quadrant 07/11/2009 JOAN (acute kidney injury) ([facility]) 10/07/2019 Anemia due to stage 4 chronic kidney disease (HCC) 07/08/2020 Benign neoplasm of colon Bursitis of right hip 11/10/2011 Congenital pes planus 06/30/2006 Disorder of right rotator cuff 05/17/2013 Obstructive sleep apnea Personal history of colonic polyps 07/11/2009 Pure hypercholesterolemia Type 2 diabetes mellitus with hyperglycemia, with long-term current use of insulin (HCC) 06/22/2014 Type II or unspecified type diabetes mellitus without mention of complication, uncontrolled Unspecified essential hypertension Unsteady gait 06/22/2014 PAST SURGICAL HISTORY Procedure Laterality Date CATARACT EXTRACTION W/ INTRAOCULAR LENS IMPLANT HX Bilateral COLONOSCOPY FLX DX W/COLLJ SPEC WHEN PFRMD 01/13/2007 COLSC FLX W/RMVL OF TUMOR POLYP LESION SNARE TQ 01/05/2006 PAST SURGICAL HISTORY OF 1997 epigastric hernia repair in abdomen PAST SURGICAL HISTORY OF 1996 right lower leg- hemorrhage PAST SURGICAL HISTORY OF 2015 Lumbar surgery, [facility] ALLERGIES Diovan [Valsartan] MEDICATIONS dulaglutide (TRULICITY) 1.5 mg/0.5 mL pen injector Inject 1.5 mg subcutaneously one time a week. benzonatate (TESSALON PERLES) 100 mg capsule Take 2 capsules by mouth three times daily as needed. fluticasone (FLONASE) 50 mcg/actuation nasal spray Use 2 Sprays in each nostril once daily. Rinse mouth after use. oxybutynin ER (DITROPAN XL) 10 mg 24 hr tablet Take 1 tablet by mouth every evening. For frequent urination. metoprolol succinate ER (TOPROL XL) 25 mg 24 hr tablet Take 1 tablet by mouth once daily. ezetimibe-simvastatin 10-20 mg (VYTORIN 10/20) 10-20 mg per tablet Take 1 tablet by mouth daily at bedtime. lancets (ONE TOUCH DELClickFacts) 33 gauge Check blood sugars 3 times daily and as needed for symptoms of sugars being too high or too low. (E11.65, Z79.4) Type 2 diabetes mellitus with hyperglycemia, with long-term current use of insulin (HCC) triamcinolone acetonide (KENALOG) 0.1 % cream Apply 1 application to affected area as needed. daily as needed alfuzosin SR (UROXATRAL) 10 mg 24 hr tablet Take 1 tablet by mouth once daily. blood sugar diagnostic ([employer] Group[employer]CH VERIO TEST STRIPS) test strip Test blood sugar(s) three times daily. Dx: Type 2 DM - Controlled E11.9 Insulin: Yes insulin glargine U-300 conc (TOUJEO) 300 unit/mL (1.5 mL) Inject 16 Units subcutaneously daily at bedtime. Insulin Finley, Disposable, (PEN NEEDLE) 32 gauge x Use with Toujeo insulin daily and Humalog insulin lispro (HUMALOG KWIKPEN) 100 unit/mL Inject 8 Units subcutaneously daily with breakfast AND 10 Units daily with dinner. amLODIPine (NORVASC) 10 mg tablet Take 1 tablet by mouth once daily. nystatin (MYCOSTATIN) cream Apply to affected area twice daily. Apply for 7 days to penile rash. U-[email or web address] VERIO SYSTEM misc Aspirin 81 mg tab Take 1 tablet by mouth once daily. Take with food. COMPOUNDED PRESCRIPTION Initiate CPAP @ 11 cm of water with humidification. Mask (per patient preference) optional chin strap (if indicated) tubing , filters, humidifier and lifetime supplies. Dx. DEONDRE 327.23 CENTRUM SILVER TAB Take one(1) tablet daily. VITAMIN C 500 MG TAB Take one(1) tablet daily. FAMILY HISTORY Problem Relation Age of Onset Diabetes Mother Heart Mother No Ocular Disease Mother No Ocular Disease Father other (Other) Father ? anerysm Social History Tobacco Use Smoking status: Former Packs/day: 0.50 Years: 15.00 Pack years: 7.50 Types: Cigarettes Quit date: 01/16/1958 Years since quittin.4 Smokeless tobacco: Never Substance Use Topics Alcohol use: No Drug use: No ASSESSMENT/PLAN: 1. Pain - ICD9: 780.96, ICD10: R52 - CONSULT TO ORTHOPAEDICS Patient (more content not included)... [facility] 06-23-2022 Note HNO ID: [id number] Author: Cherelle Mandujano RT(R) Service: Radiology Author Type: Technologist Type: Progress Notes Filed: 06/23/2022 11:05 AM Note Text: [facility] 06-16-2022 Note HNO ID: [id number] Author: Raeann Hernandez APRN.RELAY WORKER Service: ? Author Type: Nurse Practitioner Type: Progress Notes Filed: 06/16/2022 12:51 PM Note Text: Subjective Trauma Pertinent negatives include no chills, fever, myalgias or rash. Renzo Mead is a 86 year old male who presents with right shoulder and right hand pain. He noticed this after working in his yard, he was using a hoe and pulling out grass and weeds. He also fell backwards during his gardening. He denies any specific injury to the right hand or shoulder. He rates the shoulder pain 3/10. He rates the hand pain 10/10. He has percocet at home for pain and took some which did help the pain. Review of Systems Constitutional: Negative for chills and fever. Musculoskeletal: Positive for falls and joint pain. Negative for back pain and myalgias. Skin: Negative for itching and rash. BP 122/58 Pulse 80 Temp 36.8 ?C (98.2 ?F) Resp 21 Wt 91.5 kg (201 lb 12.8 oz) SpO2 95% BMI 31.61 kg/m? PAST MEDICAL HISTORY Diagnosis Date Abdominal pain, left upper quadrant 07/11/2009 OJAN (acute kidney injury) ([facility]) 10/07/2019 Anemia due to stage 4 chronic kidney disease ([facility]) 07/08/2020 Benign neoplasm of colon Bursitis of right hip 11/10/2011 Congenital pes planus 06/30/2006 Disorder of right rotator cuff 05/17/2013 Obstructive sleep apnea Personal history of colonic polyps 07/11/2009 Pure hypercholesterolemia Type 2 diabetes mellitus with hyperglycemia, with long-term current use of insulin ([facility]) 06/22/2014 Type II or unspecified type diabetes mellitus without mention of complication, uncontrolled Unspecified essential hypertension Unsteady gait 06/22/2014 PAST SURGICAL HISTORY Procedure Laterality Date CATARACT EXTRACTION W/ INTRAOCULAR LENS IMPLANT HX Bilateral COLONOSCOPY FLX DX W/COLLJ SPEC WHEN PFRMD 01/13/2007 COLSC FLX W/RMVL OF TUMOR POLYP LESION SNARE TQ 01/05/2006 PAST SURGICAL HISTORY OF 1997 epigastric hernia repair in abdomen PAST SURGICAL HISTORY OF 1996 right lower leg- hemorrhage PAST SURGICAL HISTORY OF 2015 Lumbar surgery, [facility] ALLERGIES Diovan [Valsartan] MEDICATIONS dulaglutide (TRULICITY) 1.5 mg/0.5 mL pen injector Inject 1.5 mg subcutaneously one time a week. benzonatate (TESSALON PERLES) 100 mg capsule Take 2 capsules by mouth three times daily as needed. fluticasone (FLONASE) 50 mcg/actuation nasal spray Use 2 Sprays in each nostril once daily. Rinse mouth after use. oxybutynin ER (DITROPAN XL) 10 mg 24 hr tablet Take 1 tablet by mouth every evening. For frequent urination. metoprolol succinate ER (TOPROL XL) 25 mg 24 hr tablet Take 1 tablet by mouth once daily. ezetimibe-simvastatin 10-20 mg (VYTORIN 10/20) 10-20 mg per tablet Take 1 tablet by mouth daily at bedtime. lancets (ONE TOUCH DELICA) 33 gauge Check blood sugars 3 times daily and as needed for symptoms of sugars being too high or too low. (E11.65, Z79.4) Type 2 diabetes mellitus with hyperglycemia, with long-term current use of insulin ([facility]) triamcinolone acetonide (KENALOG) 0.1 % cream Apply 1 application to affected area as needed. daily as needed alfuzosin SR (UROXATRAL) 10 mg 24 hr tablet Take 1 tablet by mouth once daily. blood sugar diagnostic (ONETOUCH VERIO TEST STRIPS) test strip Test blood sugar(s) three times daily. Dx: Type 2 DM - Controlled E11.9 Insulin: Yes insulin glargine U-300 conc (TOUJEO) 300 unit/mL (1.5 mL) Inject 16 Units subcutaneously daily at bedtime. Insulin Finley, Disposable, (PEN NEEDLE) 32 gauge x 5/32 Use with Toujeo insulin daily and Humalog insulin lispro (HUMALOG KWIKPEN) 100 unit/mL Inject 8 Units subcutaneously daily with breakfast AND 10 Units daily with dinner. amLODIPine (NORVASC) 10 mg tablet Take 1 tablet by mouth once daily. oxyCODONE-acetaminophen (PERCOCET) 5-325 mg tablet Take 1 tablet by mouth every 8 hours as needed for pain. nystatin (MYCOSTATIN) cream Apply to affected area twice daily. Apply for 7 days to penile rash. [email or web address] VERIO SYSTEM misc Aspirin 81 mg tab Take 1 tablet by mouth once daily. Take with food. COMPOUNDED PRESCRIPTION Initiate CPAP @ 11 cm of water with humidification. Mask (per patient preference) optional chin strap (if indicated) tubing , filters, humidifier and lifetime supplies. Dx. DEONDRE 327.23 CENTRUM SILVER TAB Take one(1) tablet daily. VITAMIN C 500 MG TAB Take one(1) tablet daily. FAMILY HISTORY Problem Relation Age of Onset Diabetes Mother Heart Mother No Ocular Disease Mother No Ocular Disease Father other (Other) Father ? anerysm Social History Tobacco Use Smoking status: Former Packs/day: 0.50 Years: 15.00 Pack years: 7.50 Types: Cigarettes Quit date: 01/16/1958 Years since quittin.4 Smokeless tobacco: Never Substance Use Topics Alcohol use: No Drug use: No Objective Physical Exam Vitals and nursing note reviewed. Constitutional: General: He (more content not included)... [facility] 06-16-2022 Note HNO ID: [id number] Author: RT Kathy(R) Service: Radiology Author Type: Technologist Type: Progress Notes Filed: 06/16/2022 12:12 PM Note Text: Radiology Service Progress Note PATIENT NAME: Renzo Mead DATE OF SERVICE: June 16, 2022 TIME: 11:59 AM PATIENT IDENTITY VERIFICATION COMPLETED USING TWO (2) IDENTIFIERS: Name and Date of confirmed by patient verbally. FALL SCREENING: Has the patient had 2 falls in the last year or 1 fall with injury or currently using an Ambulatory Assistive Device (Walker, Cane, Wheelchair, Crutches, etc.)? No PATIENT GENDER DATA: Male PATIENT RELEVANT IMPLANT DATA REVIEWED: Yes RADIOLOGY DEPARTMENT: General X-ray: Exam(s) Completed: Upper Extremity X-Ray(s): Shoulder, AP / TRUE AP / AXILLARY right and Hand, right PERIPHERAL IV DATA: Not applicable SIGNED BY: RT Kathy(R) June 16, 2022 11:59 AM [facility] 06-16-2022 Instructions Raeann Hernandez APRN.[facility] - 06/16/2022 12:42 PM EDT ASSESSMENT/PLAN: 1. Right hand pain - ICD9: 729.5, ICD10: M79.641 (primary diagnosis) - XR HAND GENERAL 3V PA/LAT/OBL RIGHT Radiologist FINDINGS: No acute fracture or dislocation identified. Severe first carpal metacarpal joint osteoarthritis with severe joint space narrowing, subchondral sclerosis, subchondral cystic change and large marginal osteophyte formation. Mild to moderate triscaphe joint degenerative changes with joint space narrowing and subchondral sclerosis. Moderate to severe first metacarpal phalangeal joint space narrowing with subchondral sclerosis. Chondrocalcinosis in the region of the proximal carpal row and triangular fibrocartilage. Atherosclerotic calcification of the vasculature. IMPRESSION: 1. Osteoarthritis, as described. 2. Chondrocalcinosis. Atherosclerotic disease. Master [employer] Parachutist: FREEDOM Transcribe Date/Time: Jun 16 2022 12:35P Dictated by : MONCHO LANCASTER MD 2. Acute pain of right shoulder - ICD9: 719.41, ICD10: M25.511 - XR SHOULDER GENERAL 3V OR MORE AP/TRUE AP/OTHER RIGHT Radiologist FINDINGS: No acute fracture or dislocation identified. Moderate to severe acromioclavicular joint space narrowing with hypertrophic change. Small well-corticated calcification adjacent to the greater tuberosity. IMPRESSION: Degenerative changes as described. Master Naval Parachutist: FREEDOM Transcribe Date/Time: Jun 16 2022 12:38P Dictated by : MONCHO LANCASTER MD 3. Fall, initial encounter - ICD9: E888.9, ICD10: W19.XXXA 4. Bursitis, unspecified site - ICD9: 727.3, ICD10: M71.9 - PREDNISONE 20 MG TABLET - Follow-up with your PCP in 3-5 days if symptoms have not improved or sooner if symptoms worsen - Discussed red flags and need for immediate medical evaluation if any occur. - Discussed supportive care treatment with fluids, rest and analgesia. - Discussed expected course of illness Raeann Hernandez APRN.RELAY WORKER Bursitis What is bursitis? Bursitis is the inflammation or irritation of the bursa. The bursa is a small sac filled with lubricating fluid, located between tissues such as bone, muscle, tendons, and skin. Bursae help to decrease friction, rubbing and irritation and help your joints move with ease. There are more than 150 bursae in your body. Bursitis occurs when a bursa becomes inflamed; this results in pain and discomfort. The pain may be gradual (building up over time) or may be sudden and severe (especially if calcium deposits are present). What causes bursitis? Bursitis is most often caused by repetitive motions (ie, overuse); or direct, minor impact on the area (such as from such activities as repeated bumping or prolonged pressure from kneeling). Less often, bursitis is caused from a sudden, more serious injury. Other examples of the sources of bursitis include one or more of the following: Play or work activities that cause overuse or injury to the joint areas, for example: Gardening Raking Carpentry Shoveling Painting Scrubbing Sports (tennis, golf, throwing and pitching, etc.) Incorrect posture injury Stress on the soft tissues from an abnormal or poorly positioned joint or bone (such as leg length differences or arthritis in a joint) Other diseases or conditions (rheumatoid arthritis, gout, psoriasis, thyroid disease or an unusual drug reaction) and rarely, from infection Many times, the cause of bursitis is unknown. Where does bursitis occur? Bursae are located throughout the body. However, certain joints are more subject to increased pressure and repetitive use, making bursitis more likely to develop in them. These joints include the shoulders, elbows, knees, and feet. Bursae near the hip joint, particularly those on the outer side of the hip, and those in the buttocks (subjected to pressure from sitting) are also prone to bursitis. How is bursitis treated? Treatment goals include reduction in pain and inflammation, as well as preserving mobility and preventing disability and recurrence. Treatment recommendations may include a combination of rest, splints, heat and cold application. More advanced treatment options include: Nonsteroidal anti-inflammatory drugs, such as ibuprofen or naproxen Corticosteroid injections given by your health care provider. Injections work quickly to decrease the inflammation and pain. Physical therapy that includes range of motion exercises and splinting. This can be very beneficial. Surgery, when other treatments are not effective. When should you seek medical advice? Most cases of bursitis improve without any treatment over a few weeks. See your health care provider if you have any of the following signs or symptoms: You experience pain that interferes with your normal day-to-day activities or have soreness that doesn't improve despite self-care measures. You have recurrence of bursitis. You have a fever or the area affected appears red, swollen or warm. In addition, see your doctor if you have other medical conditions that may increase your risk of an infection, or if you take medications that increase your risk of infection, such as corticosteroids or immunosuppressants. How can you prevent bursitis? Because most cases of bursitis are caused by overuse, the best treatment is prevention. It is important to avoid or modify the activities that cause the problem. Underlying conditions such as leg length differences, improper posture or poor technique in sports or work must be corrected. Some positions, such as kneeling and sitting, significantly increase joint pressure. Apply these basic rules when performing activities: Take it slow at first and gradually build up your activity level. Use limited force and limited repetitions. Stop if unusual pain occurs. Use cushions and pads to reduce pressure. References [employer]. Tendinitis and Bursitis Accessed 12/20/2013. [employer] [place] [employer]. Bursitis and tendinitis Accessed 12/20/2013. [place] [employer]. Chapter 281. Acute Disorders of the Joints and Bursae. In: Adalid ZHU, Nelson J, Drake O, Len DM, Nirali RK, Alessandro RAYO, T. eds. [place] Emergency Medicine: A Comprehensive Study Guide, 7e. [place], [place]: [facility]; 2011. documented in this encounter [facility] 06-16-2022 History of Present illness Narrative Images from the original note were not included. Subjective Trauma Pertinent negatives include no chills, fever, myalgias or rash. Renzo Mead is a 86 year old male who presents with right shoulder and right hand pain. He noticed this after working in his yard, he was using a hoe and pulling out grass and weeds. He also fell backwards during his gardening. He denies any specific injury to the right hand or shoulder. He rates the shoulder pain 3/10. He rates the hand pain 10/10. He has percocet at home for pain and took some which did help the pain. Review of Systems Constitutional: Negative for chills and fever. Musculoskeletal: Positive for falls and joint pain. Negative for back pain and myalgias. Skin: Negative for itching and rash. BP 122/58 Pulse 80 Temp 36.8 C (98.2 F) Resp 21 Wt 91.5 kg (201 lb 12.8 oz) SpO2 95% BMI 31.61 kg/m PAST MEDICAL HISTORY Diagnosis Date Abdominal pain, left upper quadrant 07/11/2009 JOAN (acute kidney injury) (HCC) 10/07/2019 Anemia due to stage 4 chronic kidney disease (HCC) 07/08/2020 Benign neoplasm of colon Bursitis of right hip 11/10/2011 Congenital pes planus 06/30/2006 Disorder of right rotator cuff 05/17/2013 Obstructive sleep apnea Personal history of colonic polyps 07/11/2009 Pure hypercholesterolemia Type 2 diabetes mellitus with hyperglycemia, with long-term current use of insulin (HCC) 06/22/2014 Type II or unspecified type diabetes mellitus without mention of complication, uncontrolled Unspecified essential hypertension Unsteady gait 06/22/2014 PAST SURGICAL HISTORY Procedure Laterality Date CATARACT EXTRACTION W/ INTRAOCULAR LENS IMPLANT HX Bilateral COLONOSCOPY FLX DX W/COLLJ SPEC WHEN PFRMD 01/13/2007 COLSC FLX W/RMVL OF TUMOR POLYP LESION SNARE TQ 01/05/2006 PAST SURGICAL HISTORY OF 1998 epigastric hernia repair in abdomen PAST SURGICAL HISTORY OF 1996 right lower leg- hemorrhage PAST SURGICAL HISTORY OF 2015 Lumbar surgery, [facility] ALLERGIES Diovan [Valsartan] MEDICATIONS dulaglutide (TRULICITY) 1.5 mg/0.5 mL pen injector Inject 1.5 mg subcutaneously one time a week. benzonatate (TESSALON PERLES) 100 mg capsule Take 2 capsules by mouth three times daily as needed. fluticasone (FLONASE) 50 mcg/actuation nasal spray Use 2 Sprays in each nostril once daily. Rinse mouth after use. oxybutynin ER (DITROPAN XL) 10 mg 24 hr tablet Take 1 tablet by mouth every evening. For frequent urination. metoprolol succinate ER (TOPROL XL) 25 mg 24 hr tablet Take 1 tablet by mouth once daily. ezetimibe-simvastatin 10-20 mg (VYTORIN 10/20) 10-20 mg per tablet Take 1 tablet by mouth daily at bedtime. lancets (ONE TOUCH DELClickFacts) 33 gauge Check blood sugars 3 times daily and as needed for symptoms of sugars being too high or too low. (E11.65, Z79.4) Type 2 diabetes mellitus with hyperglycemia, with long-term current use of insulin (HCC) triamcinolone acetonide (KENALOG) 0.1 % cream Apply 1 application to affected area as needed. daily as needed alfuzosin SR (UROXATRAL) 10 mg 24 hr tablet Take 1 tablet by mouth once daily. blood sugar diagnostic (ONETOUCH VERIO TEST STRIPS) test strip Test blood sugar(s) three times daily. Dx: Type 2 DM - Controlled E11.9 Insulin: Yes insulin glargine U-300 conc (TOUJEO) 300 unit/mL (1.5 mL) Inject 16 Units subcutaneously daily at bedtime. Insulin Finley, Disposable, (PEN NEEDLE) 32 gauge x Use with Toujeo insulin daily and Humalog insulin lispro (HUMALOG KWIKPEN) 100 unit/mL Inject 8 Units subcutaneously daily with breakfast AND 10 Units daily with dinner. amLODIPine (NORVASC) 10 mg tablet Take 1 tablet by mouth once daily. oxyCODONE-acetaminophen (PERCOCET) 5-325 mg tablet Take 1 tablet by mouth every 8 hours as needed for pain. nystatin (MYCOSTATIN) cream Apply to affected area twice daily. Apply for 7 days to penile rash. [employer] VERIO SYSTEM misc Aspirin 81 mg tab Take 1 tablet by mouth once daily. Take with food. COMPOUNDED PRESCRIPTION Initiate CPAP @ 11 cm of water with humidification. Mask (per patient preference) optional chin strap (if indicated) tubing , filters, humidifier and lifetime supplies. Dx. DEONDRE 327.23 CENTRUM SILVER TAB Take one(1) tablet daily. VITAMIN C 500 MG TAB Take one(1) tablet daily. FAMILY HISTORY Problem Relation Age of Onset Diabetes Mother Heart Mother No Ocular Disease Mother No Ocular Disease Father other (Other) Father ? anerysm Social History Tobacco Use Smoking status: Former Packs/day: 0.50 Years: 15.00 Pack years: 7.50 Types: Cigarettes Quit date: 01/16/1958 Years since quittin.4 Smokeless tobacco: Never Substance Use Topics Alcohol use: No Drug use: No Objective Physical Exam Vitals and nursing note reviewed. Constitutional: General: He is not in acute distress. Appearance: Normal appearance. Musculoskeletal: General: Tenderness present. No swelling, deformity or signs of injury. Right shoulder: Tenderness present. No swelling, deformity or crepitus. Decreased range of motion. Normal strength. Normal pulse. Right hand: Tenderness present. No swelling, deformity or bony tenderness. Normal strength. Normal sensation. Normal capillary refill. Normal pulse. Hands: Comments: Tenderness right shoulder below acromion process Skin: General: Skin is warm and dry. Capillary Refill: Capillary refill takes less than 2 seconds. Findings: No bruising, erythema or rash. Neurological: Mental Status: He is alert. ASSESSMENT/PLAN: 1. Right hand pain - ICD9: 729.5, ICD10: M79.641 (primary diagnosis) - XR HAND GENERAL 3V PA/LAT/OBL RIGHT Radiologist FINDINGS: No acute fracture or dislocation identified. Severe first carpal metacarpal joint osteoarthritis with severe joint space narrowing, subchondral sclerosis, subchondral cystic change and large marginal osteophyte formation. Mild to moderate triscaphe joint degenerative changes with joint space narrowing and subchondral sclerosis. Moderate to severe first metacarpal phalangeal joint space narrowing with subchondral sclerosis. Chondrocalcinosis in the region of the proximal carpal row and triangular fibrocartilage. Atherosclerotic calcification of the vasculature. IMPRESSION: 1. Osteoarthritis, as described. 2. Chondrocalcinosis. Atherosclerotic disease. Master Naval Parachutist: FREEDOM Transcribe Date/Time: Jun 16 2022 12:35P Dictated by : MONCHO LANCASTER MD 2. Acute pain of right shoulder - ICD9: 719.41, ICD10: M25.511 - XR SHOULDER GENERAL 3V OR MORE AP/TRUE AP/OTHER RIGHT Radiologist FINDINGS: No acute fracture or dislocation identified. Moderate to severe acromioclavicular joint space narrowing with hypertrophic change. Small well-corticated calcification adjacent to the greater tuberosity. IMPRESSION: Degenerative changes as described. Master Naval Parachutist: FREEDOM Transcribe Date/Time: Jun 16 2022 12:38P Dictated by : MONCHO LANCASTER MD 3. Fall, initial encounter - ICD9: E888.9, ICD10: W19.XXXA 4. Bursitis, unspecified site - ICD9: 727.3, ICD10: M71.9 - PREDNISONE 20 MG TABLET - Follow-up with your PCP in 3-5 days if symptoms have not improved or sooner if symptoms worsen - Discussed red flags and need for immediate medical evaluation if any occur. - Discussed supportive care treatment with fluids, rest and analgesia. - Discussed expected course of illness Raeann Hernandez APRN.RELAY WORKER documented in this encounter [facility] 05-28-2022 Miscellaneous Notes Last Office Visit: 01/15/2022 Future Office Visit: 09/03/2022 Requested Prescriptions Pending Prescriptions Disp Refills dulaglutide (TRULICITY) 1.5 mg/0.5 mL pen injector 2 mL 5 Sig: Inject 1.5 mg subcutaneously one time a week. Date of Last Labs: 01/15/2022 documented in this encounter [facility] 05-16-2022 Note HNO ID: [id number] Author: Elvira Pickering PA-C Service: ? Author Type: Physician Career Coach Type: Progress Notes Filed: 05/16/2022 3:59 PM Note Text: This note was created using NoteWriter. Subjective Rnezo Mead is a 86 year old male. HPI Presents with cough for 3 weeks. Denies chest pain or shortness of breath. He does have some postnasal drip. No fever. Denies history of asthma. He is not a smoker. Denies sinus pain or pressure. No sore throat or ear pain. Review of Systems Constitutional: Negative. HENT: Positive for postnasal drip. Negative for sinus pressure, sinus pain and sore throat. Respiratory: Positive for cough. Negative for shortness of breath and wheezing. Cardiovascular: Negative. Gastrointestinal: Negative. Genitourinary: Negative. Musculoskeletal: Negative. All other systems reviewed and are negative. PAST MEDICAL HISTORY Diagnosis Date Abdominal pain, left upper quadrant 07/11/2009 JOAN (acute kidney injury) ([facility]) 10/07/2019 Anemia due to stage 4 chronic kidney disease ([facility]) 07/08/2020 Benign neoplasm of colon Bursitis of right hip 11/10/2011 Congenital pes planus 06/30/2006 Disorder of right rotator cuff 05/17/2013 Obstructive sleep apnea Personal history of colonic polyps 07/11/2009 Pure hypercholesterolemia Type 2 diabetes mellitus with hyperglycemia, with long-term current use of insulin ([facility]) 06/22/2014 Type II or unspecified type diabetes mellitus without mention of complication, uncontrolled Unspecified essential hypertension Unsteady gait 06/22/2014 Current Outpatient Medications Medication Sig Dispense Refill oxybutynin ER (DITROPAN XL) 10 mg 24 hr tablet Take 1 tablet by mouth every evening. For frequent urination. 30 tablet 2 metoprolol succinate ER (TOPROL XL) 25 mg 24 hr tablet Take 1 tablet by mouth once daily. 90 tablet 3 ezetimibe-simvastatin 10-20 mg (VYTORIN 10/20) 10-20 mg per tablet Take 1 tablet by mouth daily at bedtime. 90 tablet 3 lancets (ONE TOUCH DELICA) 33 gauge Check blood sugars 3 times daily and as needed for symptoms of sugars being too high or too low. (E11.65, Z79.4) Type 2 diabetes mellitus with hyperglycemia, with long-term current use of insulin ([facility]) 100 Each 11 triamcinolone acetonide (KENALOG) 0.1 % cream Apply 1 application to affected area as needed. daily as needed 80 g 5 alfuzosin SR (UROXATRAL) 10 mg 24 hr tablet Take 1 tablet by mouth once daily. 90 tablet 3 blood sugar diagnostic (ONETOUCH VERIO TEST STRIPS) test strip Test blood sugar(s) three times daily. Dx: Type 2 DM - Controlled E11.9 Insulin: Yes 300 Strip 3 insulin glargine U-300 conc (TOUJEO) 300 unit/mL (1.5 mL) Inject 16 Units subcutaneously daily at bedtime. 5 Each 3 Insulin Finley, Disposable, (PEN NEEDLE) 32 gauge x 5/32 Use with Toujeo insulin daily and Humalog 100 Each 3 dulaglutide (TRULICITY) 1.5 mg/0.5 mL pen injector Inject 1.5 mg subcutaneously one time a week. 2 mL 5 insulin lispro (HUMALOG KWIKPEN) 100 unit/mL Inject 8 Units subcutaneously daily with breakfast AND 10 Units daily with dinner. 15 mL 2 amLODIPine (NORVASC) 10 mg tablet Take 1 tablet by mouth once daily. 90 tablet 3 oxyCODONE-acetaminophen (PERCOCET) 5-325 mg tablet Take 1 tablet by mouth every 8 hours as needed for pain. nystatin (MYCOSTATIN) cream Apply to affected area twice daily. Apply for 7 days to penile rash. 30 g 1 ONETOUCH VERIO SYSTEM misc Aspirin 81 mg tab Take 1 tablet by mouth once daily. Take with food. 30 tablet 11 COMPOUNDED PRESCRIPTION Initiate CPAP @ 11 cm of water with humidification. Mask (per patient preference) optional chin strap (if indicated) tubing , filters, humidifier and lifetime supplies. Dx. DEONDRE 327.23 1 Device 0 CENTRUM SILVER TAB Take one(1) tablet daily. 0 VITAMIN C 500 MG TAB Take one(1) tablet daily. 0 benzonatate (TESSALON PERLES) 100 mg capsule Take 2 capsules by mouth three times daily as needed. 30 capsule 0 fluticasone (FLONASE) 50 mcg/actuation nasal spray Use 2 Sprays in each nostril once daily. Rinse mouth after use. 1 Each 0 No current facility-administered medications for this visit. PAST SURGICAL HISTORY Procedure Laterality Date CATARACT EXTRACTION W/ INTRAOCULAR LENS IMPLANT HX Bilateral COLONOSCOPY FLX DX W/COLLJ SPEC WHEN PFRMD 01/13/2007 COLSC FLX W/RMVL OF TUMOR POLYP LESION SNARE TQ 01/05/2006 PAST SURGICAL HISTORY OF 1997 epigastric hernia repair in abdomen PAST SURGICAL HISTORY OF 1996 right lower leg- hemorrhage PAST SURGICAL HISTORY OF 2015 Lumbar surgery, [facility] FAMILY HISTORY Problem Relation Age of Onset Diabetes Mother Heart Mother No Ocular Disease Mother No Ocular Disease Father other (Other) Father ? anerysm Social History Tobacco Use Smoking status: Former Packs/day: 0.50 Years: 15.00 Pack years: 7.50 Types: Cigarettes Quit date: 01/16/1958 Years since quittin.3 Smokeless tobacco: Never Substance U (more content not included)... [facility] 05-16-2022 Note HNO ID: [id number] Author: RT Jesse(R) Service: Nuclear Medicine Author Type: Technologist Type: Progress Notes Filed: 05/16/2022 3:48 PM Note Text: Radiology Service Progress Note PATIENT NAME: Renzo Mead DATE OF SERVICE: May 16, 2022 TIME: 3:41 PM PATIENT IDENTITY VERIFICATION COMPLETED USING TWO (2) IDENTIFIERS: Name and Date of confirmed by patient verbally. FALL SCREENING: Has the patient had 2 falls in the last year or 1 fall with injury or currently using an Ambulatory Assistive Device (Walker, Cane, Wheelchair, Crutches, etc.)? No PATIENT GENDER DATA: Male PATIENT RELEVANT IMPLANT DATA REVIEWED: Not Applicable RADIOLOGY DEPARTMENT: General X-ray: Exam(s) Completed: Chest X-Ray PERIPHERAL IV DATA: Not applicable SIGNED BY: RT Jesse(R) May 16, 2022 3:41 PM [facility] 05-16-2022 History of Present illness Narrative This note was created using Muzyriter. Subjective Renzo Mead is a 86 year old male. HPI Presents with cough for 3 weeks. Denies chest pain or shortness of breath. He does have some postnasal drip. No fever. Denies history of asthma. He is not a smoker. Denies sinus pain or pressure. No sore throat or ear pain. Review of Systems Constitutional: Negative. HENT: Positive for postnasal drip. Negative for sinus pressure, sinus pain and sore throat. Respiratory: Positive for cough. Negative for shortness of breath and wheezing. Cardiovascular: Negative. Gastrointestinal: Negative. Genitourinary: Negative. Musculoskeletal: Negative. All other systems reviewed and are negative. PAST MEDICAL HISTORY Diagnosis Date Abdominal pain, left upper quadrant 07/11/2009 JOAN (acute kidney injury) ([facility]) 10/07/2019 Anemia due to stage 4 chronic kidney disease ([facility]) 07/08/2020 Benign neoplasm of colon Bursitis of right hip 11/10/2011 Congenital pes planus 06/30/2006 Disorder of right rotator cuff 05/17/2013 Obstructive sleep apnea Personal history of colonic polyps 07/11/2009 Pure hypercholesterolemia Type 2 diabetes mellitus with hyperglycemia, with long-term current use of insulin ([facility]) 06/22/2014 Type II or unspecified type diabetes mellitus without mention of complication, uncontrolled Unspecified essential hypertension Unsteady gait 06/22/2014 Current Outpatient Medications Medication Sig Dispense Refill oxybutynin ER (DITROPAN XL) 10 mg 24 hr tablet Take 1 tablet by mouth every evening. For frequent urination. 30 tablet 2 metoprolol succinate ER (TOPROL XL) 25 mg 24 hr tablet Take 1 tablet by mouth once daily. 90 tablet 3 ezetimibe-simvastatin 10-20 mg (VYTORIN 10/20) 10-20 mg per tablet Take 1 tablet by mouth daily at bedtime. 90 tablet 3 lancets (ONE TOUCH DELICA) 33 gauge Check blood sugars 3 times daily and as needed for symptoms of sugars being too high or too low. (E11.65, Z79.4) Type 2 diabetes mellitus with hyperglycemia, with long-term current use of insulin ([facility]) 100 Each 11 triamcinolone acetonide (KENALOG) 0.1 % cream Apply 1 application to affected area as needed. daily as needed 80 g 5 alfuzosin SR (UROXATRAL) 10 mg 24 hr tablet Take 1 tablet by mouth once daily. 90 tablet 3 blood sugar diagnostic (ONETOUCH VERIO TEST STRIPS) test strip Test blood sugar(s) three times daily. Dx: Type 2 DM - Controlled E11.9 Insulin: Yes 300 Strip 3 insulin glargine U-300 conc (TOUJEO) 300 unit/mL (1.5 mL) Inject 16 Units subcutaneously daily at bedtime. 5 Each 3 Insulin Finley, Disposable, (PEN NEEDLE) 32 gauge x /32 Use with Toujeo insulin daily and Humalog 100 Each 3 dulaglutide (TRULICITY) 1.5 mg/0.5 mL pen injector Inject 1.5 mg subcutaneously one time a week. 2 mL 5 insulin lispro (HUMALOG KWIKPEN) 100 unit/mL Inject 8 Units subcutaneously daily with breakfast AND 10 Units daily with dinner. 15 mL 2 amLODIPine (NORVASC) 10 mg tablet Take 1 tablet by mouth once daily. 90 tablet 3 oxyCODONE-acetaminophen (PERCOCET) 5-325 mg tablet Take 1 tablet by mouth every 8 hours as needed for pain. nystatin (MYCOSTATIN) cream Apply to affected area twice daily. Apply for 7 days to penile rash. 30 g 1 ONETOUCH VERIO SYSTEM misc Aspirin 81 mg tab Take 1 tablet by mouth once daily. Take with food. 30 tablet 11 COMPOUNDED PRESCRIPTION Initiate CPAP @ 11 cm of water with humidification. Mask (per patient preference) optional chin strap (if indicated) tubing , filters, humidifier and lifetime supplies. Dx. DEONDRE 327.23 1 Device 0 CENTRUM SILVER TAB Take one(1) tablet daily. 0 VITAMIN C 500 MG TAB Take one(1) tablet daily. 0 benzonatate (TESSALON PERLES) 100 mg capsule Take 2 capsules by mouth three times daily as needed. 30 capsule 0 fluticasone (FLONASE) 50 mcg/actuation nasal spray Use 2 Sprays in each nostril once daily. Rinse mouth after use. 1 Each 0 No current facility-administered medications for this visit. PAST SURGICAL HISTORY Procedure Laterality Date CATARACT EXTRACTION W/ INTRAOCULAR LENS IMPLANT HX Bilateral COLONOSCOPY FLX DX W/COLLJ SPEC WHEN PFRMD 01/13/2007 COLSC FLX W/RMVL OF TUMOR POLYP LESION SNARE TQ 01/05/2006 PAST SURGICAL HISTORY OF 1997 epigastric hernia repair in abdomen PAST SURGICAL HISTORY OF 1996 right lower leg- hemorrhage PAST SURGICAL HISTORY OF 2015 Lumbar surgery, [facility] FAMILY HISTORY Problem Relation Age of Onset Diabetes Mother Heart Mother No Ocular Disease Mother No Ocular Disease Father other (Other) Father ? anerysm Social History Tobacco Use Smoking status: Former Packs/day: 0.50 Years: 15.00 Pack years: 7.50 Types: Cigarettes Quit date: 01/16/1958 Years since quittin.3 Smokeless tobacco: Never Substance Use Topics Alcohol use: No Drug use: No Objective BP 110/64 Pulse 73 Temp 36.9 C (98.5 F) (Tympanic) Resp 16 Wt 91.3 kg (201 lb 3.2 oz) SpO2 97% BMI 31.51 kg/m Physical Exam Vitals reviewed. Constitutional: Appearance: Normal appearance. HENT: Head: Normocephalic and atraumatic. Right Ear: Tympanic membrane, ear canal and external ear normal. Left Ear: Tympanic membrane, ear canal and external ear normal. Nose: Nose normal. Mouth/Throat: Mouth: Mucous membranes are moist. Pharynx: Oropharynx is clear. Cardiovascular: Rate and Rhythm: Normal rate and regular rhythm. Heart sounds: Normal heart sounds. Pulmonary: Effort: Pulmonary effort is normal. No respiratory distress. Breath sounds: Normal breath sounds. No wheezing, rhonchi or rales. Skin: General: Skin is warm and dry. Findings: No rash. Neurological: General: No focal deficit present. Mental Status: He is alert. Assessment and Plan ASSESSMENT/PLAN: 1. Acute cough - ICD9: 786.2, ICD10: R05.1 Chest x-ray clear. Likely viral bronchitis. No sign of sinus infection. He does have some postnasal drip but no sinus pain or pressure. Will trial Flonase and given Tessalon for cough. If not improving over the next week follow-up here or with PCP. - XR CHEST 2V FRONTAL/LAT Elvira Pickering PA-C documented in this encounter [facility] 05-05-2022 Miscellaneous Notes Patient has been identified by name and date of : Yes, Provider Dr. Bishop Date 05/05/22 Time 11:23 am Patient phones for refill(s): Requested Prescriptions Pending Prescriptions Disp Refills oxybutynin ER (DITROPAN XL) 10 mg 24 hr tablet 30 tablet 2 Sig: Take 1 tablet by mouth every evening. For frequent urination. Date of last office visit in primary care: 01/15/23 Last 2 Encounter Wt Readings: Date: Wt: 01/15/2022 91.2 kg (201 lb) 09/13/2021 92.5 kg (204 lb) Previous labs/tests for medication: Not applicable Thank you. Marzena Calloway LPN documented in this encounter [facility] 04-15-2022 Miscellaneous Notes Patient has been identified by name and date of : Yes, Provider Dr. Bishop Date 04-15-22 Time 2:28 pm Patient phones for refill(s): Requested Prescriptions Pending Prescriptions Disp Refills metoprolol succinate ER (TOPROL XL) 25 mg 24 hr tablet 30 tablet 2 Sig: Take 1 tablet by mouth once daily. Date of last office visit with pcp: 01-15-22. Next appt: 07-18-22 Last 2 Encounter Wt Readings: Date: Wt: 01/15/2022 91.2 kg (201 lb) 09/13/2021 92.5 kg (204 lb) Previous labs/tests for medication: Blood Pressure: BUN (mg/dL) Date Value 09/13/2021 43 09/07/2020 45 Sodium (mmol/L) Date Value 09/13/2021 141 09/07/2020 140 Last 1 Encounter BP Readings: Date: BP: 01/15/2022 118/64 Please advise. Thank you. Kristan Daniel RN documented in this encounter [facility] 04-03-2022 Note HNO ID: [id number] Author: Tatiana Santiago OD Service: ? Author Type: LUNCHROOM ATTENDANT Type: Progress Notes Filed: 04/03/2022 2:49 PM Note Text: 1. Early dry stage nonexudative age-related macular degeneration of both eyes + pigment clumping OD>OS (no CNV on OCT Educated patient on condition -recommended wearing UV protection outdoors and eating diet with more dark, leafy vegetable Gave amsler grid with directions-urged to call [facility] with any changes 2. Type 2 diabetes mellitus without retinopathy (HCC) Risk of diabetic changes and vision loss can be minimized by tight control of blood sugar, blood pressure, and cholesterol levels. Educated patient to continue care with primary care doctor and/or radio station audio engineer to maintain optimum levels as they are important to avoid ocular complications. Encouraged patient to call the office immediately with any changes to vision or visual concerns. Advised to not wait until the next scheduled exam. 3. PVD (posterior vitreous detachment), both eyes Stable-Monitor 4. Pseudophakia of both eyes 5. Presbyopia Continue with OTC readers Follow-up in 1 year or sooner as needed Tatiana Santiago, OD April 03, 2022 2:47 PM [facility] 04-03-2022 History of Present illness Narrative 1. Early dry stage nonexudative age-related macular degeneration of both eyes + pigment clumping OD>OS (no CNV on OCT Educated patient on condition -recommended wearing UV protection outdoors and eating diet with more dark, leafy vegetable Gave amsler grid with directions-urged to call [facility] with any changes 2. Type 2 diabetes mellitus without retinopathy (HCC) Risk of diabetic changes and vision loss can be minimized by tight control of blood sugar, blood pressure, and cholesterol levels. Educated patient to continue care with primary care doctor and/or radio station audio engineer to maintain optimum levels as they are important to avoid ocular complications. Encouraged patient to call the office immediately with any changes to vision or visual concerns. Advised to not wait until the next scheduled exam. 3. PVD (posterior vitreous detachment), both eyes Stable-Monitor 4. Pseudophakia of both eyes 5. Presbyopia Continue with OTC readers Follow-up in 1 year or sooner as needed Tatiana Santiago, OD April 03, 2022 2:47 PM documented in this encounter [facility] 03-03-2022 Miscellaneous Notes Patient has been identified by name and date of : Yes, Provider Dr. Bishop Date 03-03-22 Time 2:33pm Patient phones for refill(s): Requested Prescriptions Pending Prescriptions Disp Refills ezetimibe-simvastatin 10-20 mg (VYTORIN 10/20) 10-20 mg per tablet 90 tablet 3 Sig: Take 1 tablet by mouth daily at bedtime. Date of last office visit with pcp: 01-15-22. Next appt: 07-18-22 Last 2 Encounter Wt Readings: Date: Wt: 01/15/2022 91.2 kg (201 lb) 09/13/2021 92.5 kg (204 lb) Previous labs/tests for medication: Cholesterol: HDL Cholesterol (mg/dL) Date Value 06/06/2021 34 03/07/2020 34 LDL Cholesterol (mg/dL) Date Value 06/06/2021 61 03/07/2020 55 ALT (U/L) Date Value 06/06/2021 14 05/30/2020 12 Non HDL Cholesterol (mg/dL) Date Value 06/06/2021 82 03/07/2020 72 Please advise. Thank you. Kristan Daniel RN documented in this encounter [facility] 02-04-2022 Miscellaneous Notes Care Transition Back to PCP Our mutual patient, Renzo Mead, who was referred to primary care pharmacy services for Diabetes management, has not responded to our outreach attempts to schedule a visit.. We will not be scheduling further follow up with pharmacy at this time. They have been encouraged to follow up with you for ongoing management. As always, you may refer Renzo Mead back to pharmacy for management in the future. Next PCP team appointment: 07/18/22 Thank you for utilizing primary care pharmacy services. Chen EvansD, BCACP Primary Care Clinical Pharmacist documented in this encounter [facility] 01-31-2022 Miscellaneous Notes Last Office Visit: 01/15/2022 Future Office Visit: 07/18/2022 Requested Prescriptions Pending Prescriptions Disp Refills lancets (ONE TOUCH DELICA) 33 gauge 100 Each 11 Sig: Check blood sugars 3 times daily and as needed for symptoms of sugars being too high or too low. (E11.65, Z79.4) Type 2 diabetes mellitus with hyperglycemia, with long-term current use of insulin (HCC) Date of Last Labs: 01/15/2022 documented in this encounter [facility] 01-15-2022 Note HNO ID: [id number] Author: Buck Bishop MD Service: ? Author Type: Physician Type: Progress Notes Filed: 01/15/2022 3:26 PM Note Text: This note was created using NoteWriter. Subjective Renzo Mead is a 86 year old male. His hypertension was controlled. Diabetes was reportedly okay. He had no new concerns other than a sore spot on his right forehead for several months. He had not heard anything about his referral to nephrology ([facility]). Review of Systems Constitutional: Negative. Respiratory: Negative. Cardiovascular: Negative. Musculoskeletal: Positive for back pain. Neurological: Positive for numbness. Negative for dizziness and headaches. 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, With Long-Term Current Use of Insulin (Hcc) Deondre On Cpap Lumbosacral Pain Left Sided Sciatica Anemia Due to Stage 4 Chronic Kidney Disease (Hcc) Hyperlipidemia Obesity, Class I, Bmi 30-34.9 Current Outpatient Medications Medication Sig blood sugar diagnostic ([employer] VERIO TEST STRIPS) test strip Test blood sugar(s) three times daily. Dx: Type 2 DM - Controlled E11.9 Insulin: Yes insulin glargine U-300 conc (TOUJEO) 300 unit/mL (1.5 mL) Inject 16 Units subcutaneously daily at bedtime. Insulin Finley, Disposable, (PEN NEEDLE) 32 gauge x 32 Use with Toujeo insulin daily and Humalog dulaglutide (TRULICITY) 1.5 mg/0.5 mL pen injector Inject 1.5 mg subcutaneously one time a week. insulin lispro (HUMALOG KWIKPEN) 100 unit/mL Inject 8 Units subcutaneously daily with breakfast AND 10 Units daily with dinner. amLODIPine (NORVASC) 10 mg tablet Take 1 tablet by mouth once daily. oxyCODONE-acetaminophen (PERCOCET) 5-325 mg tablet Take 1 tablet by mouth every 8 hours as needed for pain. nystatin (MYCOSTATIN) cream Apply to affected area twice daily. Apply for 7 days to penile rash. ezetimibe-simvastatin 10-20 mg (VYTORIN 10/20) 10-20 mg per tablet Take 1 tablet by mouth daily at bedtime. lancets (ONE TOUCH DELICA) 33 gauge Check blood sugars 3 times daily and as needed for symptoms of sugars being too high or too low. (E11.65, Z79.4) Type 2 diabetes mellitus with hyperglycemia, with long-term current use of insulin ([facility]) ONETOUCH VERIO SYSTEM misc Aspirin 81 mg tab Take 1 tablet by mouth once daily. Take with food. COMPOUNDED PRESCRIPTION Initiate CPAP @ 11 cm of water with humidification. Mask (per patient preference) optional chin strap (if indicated) tubing , filters, humidifier and lifetime supplies. Dx. DEONDRE 327.23 CENTRUM SILVER TAB Take one(1) tablet daily. VITAMIN C 500 MG TAB Take one(1) tablet daily. metoprolol succinate ER (TOPROL XL) 25 mg 24 hr tablet Take 1 tablet by mouth once daily. oxybutynin ER (DITROPAN XL) 10 mg 24 hr tablet Take 1 tablet by mouth every evening. For frequent urination. triamcinolone acetonide (KENALOG) 0.1 % cream Apply 1 application to affected area as needed. daily as needed alfuzosin SR (UROXATRAL) 10 mg 24 hr tablet Take 1 tablet by mouth once daily. No current facility-administered medications for this visit. Objective BP 118/64 (BP Site: Left Arm, BP Position: Sitting, BP Cuff Size: Large Adult) Pulse 68 Temp 36 ?C (96.8 ?F) (Temporal) Resp 12 Wt 91.2 kg (201 lb) BMI 31.48 kg/m? Physical Exam Constitutional: General: He is not in acute distress. HENT: Head: Comments: Keratotic nodule right forehead 2 mm. Actinic changes. Cardiovascular: Rate and Rhythm: Normal rate and regular rhythm. Heart sounds: No murmur heard. No gallop. Pulmonary: Effort: Pulmonary effort is normal. Breath sounds: Normal breath sounds. Musculoskeletal: Right lower le+ Pitting Edema present. Left lower le+ Pitting Edema present. Neurological: Mental Status: He is alert. Hemoglobin A1C (%) Date Value 09/13/2021 7.4 06/06/2021 7.6 03/12/2021 9.2 09/07/2020 10.8 Hemoglobin A1C (POCT) (%) Date Value 01/15/2022 7.2 ) Assessment and Plan 1. Type 2 diabetes mellitus with stage 4 chronic kidney disease, with long-term current use of insulin (HCC) - ICD9: 250.40, 585.4, V58.67, ICD10: E11.22, N18.4, Z79.4 (primary diagnosis) - Continue medications. - HEMOGLOBIN A1C (POC) - COMP METABOLIC PANEL - LIPID PANEL BASIC - HGB A1C - ALBUMIN/CREAT RATIO RND UR - Schedule NEPHROLOGY consultation: Dr. Kruger. 2. Essential hypertension - ICD9: 401.9, ICD10: I10 - good control - METOPROLOL SUCCINATE ER 25 MG TABLET,EXTENDED RELEASE 24 HR - CBC 3. Frequency of urination - ICD9: 788.41, ICD10: R35.0 Controlled. - OXYBUTYNIN CHLORIDE ER 10 MG TABLET,EXTENDED RELEASE 24 HR 4. Benign prostatic hyperplasia with urinary obstruction - ICD9: 600.01, 599. (more content not included)... [facility] 01-15-2022 History of Present illness Narrative This note was created using Muzyriter. Subjective Renzo Mead is a 86 year old male. His hypertension was controlled. Diabetes was reportedly okay. He had no new concerns other than a sore spot on his right forehead for several months. He had not heard anything about his referral to nephrology ([facility]). Review of Systems Constitutional: Negative. Respiratory: Negative. Cardiovascular: Negative. Musculoskeletal: Positive for back pain. Neurological: Positive for numbness. Negative for dizziness and headaches. 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, With Long-Term Current Use of Insulin (Hcc) Deondre On Cpap Lumbosacral Pain Left Sided Sciatica Anemia Due to Stage 4 Chronic Kidney Disease (Hcc) Hyperlipidemia Obesity, Class I, Bmi 30-34.9 Current Outpatient Medications Medication Sig blood sugar diagnostic (ONETOUCH VERIO TEST STRIPS) test strip Test blood sugar(s) three times daily. Dx: Type 2 DM - Controlled E11.9 Insulin: Yes insulin glargine U-300 conc (TOUJEO) 300 unit/mL (1.5 mL) Inject 16 Units subcutaneously daily at bedtime. Insulin Finley, Disposable, (PEN NEEDLE) 32 gauge x Use with Toujeo insulin daily and Humalog dulaglutide (TRULICITY) 1.5 mg/0.5 mL pen injector Inject 1.5 mg subcutaneously one time a week. insulin lispro (HUMALOG KWIKPEN) 100 unit/mL Inject 8 Units subcutaneously daily with breakfast AND 10 Units daily with dinner. amLODIPine (NORVASC) 10 mg tablet Take 1 tablet by mouth once daily. oxyCODONE-acetaminophen (PERCOCET) 5-325 mg tablet Take 1 tablet by mouth every 8 hours as needed for pain. nystatin (MYCOSTATIN) cream Apply to affected area twice daily. Apply for 7 days to penile rash. ezetimibe-simvastatin 10-20 mg (VYTORIN 10/20) 10-20 mg per tablet Take 1 tablet by mouth daily at bedtime. lancets (ONE TOUCH DELClickFacts) 33 gauge Check blood sugars 3 times daily and as needed for symptoms of sugars being too high or too low. (E11.65, Z79.4) Type 2 diabetes mellitus with hyperglycemia, with long-term current use of insulin (HCC) ONETOUCH VERIO SYSTEM misc Aspirin 81 mg tab Take 1 tablet by mouth once daily. Take with food. COMPOUNDED PRESCRIPTION Initiate CPAP @ 11 cm of water with humidification. Mask (per patient preference) optional chin strap (if indicated) tubing , filters, humidifier and lifetime supplies. Dx. DEONDRE 327.23 CENTRUM SILVER TAB Take one(1) tablet daily. VITAMIN C 500 MG TAB Take one(1) tablet daily. metoprolol succinate ER (TOPROL XL) 25 mg 24 hr tablet Take 1 tablet by mouth once daily. oxybutynin ER (DITROPAN XL) 10 mg 24 hr tablet Take 1 tablet by mouth every evening. For frequent urination. triamcinolone acetonide (KENALOG) 0.1 % cream Apply 1 application to affected area as needed. daily as needed alfuzosin SR (UROXATRAL) 10 mg 24 hr tablet Take 1 tablet by mouth once daily. No current facility-administered medications for this visit. Objective BP 118/64 (BP Site: Left Arm, BP Position: Sitting, BP Cuff Size: Large Adult) Pulse 68 Temp 36 C (96.8 F) (Temporal) Resp 12 Wt 91.2 kg (201 lb) BMI 31.48 kg/m Physical Exam Constitutional: General: He is not in acute distress. HENT: Head: Comments: Keratotic nodule right forehead 2 mm. Actinic changes. Cardiovascular: Rate and Rhythm: Normal rate and regular rhythm. Heart sounds: No murmur heard. No gallop. Pulmonary: Effort: Pulmonary effort is normal. Breath sounds: Normal breath sounds. Musculoskeletal: Right lower le+ Pitting Edema present. Left lower le+ Pitting Edema present. Neurological: Mental Status: He is alert. Hemoglobin A1C (%) Date Value 09/13/2021 7.4 06/06/2021 7.6 03/12/2021 9.2 09/07/2020 10.8 Hemoglobin A1C (POCT) (%) Date Value 01/15/2022 7.2 ) Assessment and Plan 1. Type 2 diabetes mellitus with stage 4 chronic kidney disease, with long-term current use of insulin (HCC) - ICD9: 250.40, 585.4, V58.67, ICD10: E11.22, N18.4, Z79.4 (primary diagnosis) - Continue medications. - HEMOGLOBIN A1C (POC) - COMP METABOLIC PANEL - LIPID PANEL BASIC - HGB A1C - ALBUMIN/CREAT RATIO RND UR - Schedule NEPHROLOGY consultation: Dr. Kruger. 2. Essential hypertension - ICD9: 401.9, ICD10: I10 - good control - METOPROLOL SUCCINATE ER 25 MG TABLET,EXTENDED RELEASE 24 HR - CBC 3. Frequency of urination - ICD9: 788.41, ICD10: R35.0 Controlled. - OXYBUTYNIN CHLORIDE ER 10 MG TABLET,EXTENDED RELEASE 24 HR 4. Benign prostatic hyperplasia with urinary obstruction - ICD9: 600.01, 599.69, ICD10: N40.1, N13.8 Controlled. - ALFUZOSIN ER 10 MG TABLET,EXTENDED RELEASE 24 HR 5. Need for influenza vaccination - ICD9: V04.81, ICD10: Z23 - INFLUENZA SEASONAL QUADRIVALENT HIGH DOSE AGE 65+ 6. Need for vaccination - ICD9: V05.9, ICD10: Z23 - PFIZER-BIONTECH COVID-19 BIVALENT BOOSTER VACCINE, AGE 12+ YR 7. Obesity, Class I, BMI 30-34.9 - ICD9: 278.00, ICD10: E66.9 Newly diagnosed - Behavioral intervention 8. Actinic keratosis of forehead - ICD9: 702.0, ICD10: L57.0 Dr. Santos Duenas. - CONSULT TO DERMATOLOGY Buck Bishop MD documented in this encounter [facility] 01-08-2022 Miscellaneous Notes Pt will be out of medication on Thursday01-10-22/ Patient has been identified by name and date of : Yes Patient phones for refill(s): Requested Prescriptions Pending Prescriptions Disp Refills blood sugar diagnostic (ONETOUCH VERIO TEST STRIPS) test strip 300 Strip 3 Sig: Test blood sugar(s) three times daily. Dx: Type 2 DM - Controlled E11.9 Insulin: Yes insulin glargine U-300 conc (TOUJEO) 300 unit/mL (1.5 mL) Sig: Inject 16 Units subcutaneously daily at bedtime. Adjust as directed Insulin Finley, Disposable, (PEN NEEDLE) 32 gauge x 5/32 100 Each 3 Sig: Use with Toujeo insulin daily and Humalog Date of last office visit in primary care: 09/13/21 next apt 01/15/22 Last 2 Encounter Wt Readings: Date: Wt: 09/13/2021 92.5 kg (204 lb) 06/17/2021 87.1 kg (192 lb) Previous labs/tests for medication: Diabetes: Hemoglobin A1C (%) Date Value 09/13/2021 7.4 06/06/2021 7.6 03/12/2021 9.2 09/07/2020 10.8 Please advise. Thank you. Marzena Calloway LPN documented in this encounter [facility] 12-16-2021 Miscellaneous Notes Patient is due for pharmacy follow up due to missed last visit. Called and Left voicemail for patient to return call to [phone] to schedule next pharmacy phone visit. Hipolito Quiroz PharmD, BCACP Primary Care Clinical Pharmacist documented in this encounter [facility] 12-09-2021 Miscellaneous Notes KALA: 09/13/2021 oxybutynin Last refill: 09/13/2021 QTY: 30 Refills: 2 metoprolol Last refill: 09/13/2021 QTY: 30 Refills: 2 Patient has been identified by name and date of : Yes Requested Prescriptions Pending Prescriptions Disp Refills metoprolol succinate ER (TOPROL XL) 25 mg 24 hr tablet 30 tablet 2 Sig: Take 1 tablet by mouth once daily. oxybutynin ER (DITROPAN XL) 10 mg 24 hr tablet 30 tablet 2 Sig: Take 1 tablet by mouth every evening. For frequent urination. RX INSTRUCTIONS: Patient aware RX will be sent to pharmacy. No need to notify patient. Dorothy Cox documented in this encounter [facility] 11-29-2021 Miscellaneous Notes Patient has been identified by name and date of : Yes Patient phones for refill(s): Requested Prescriptions Pending Prescriptions Disp Refills dulaglutide (TRULICITY) 1.5 mg/0.5 mL pen injector 2 mL 5 Sig: Inject 1.5 mg subcutaneously one time a week. insulin lispro (HUMALOG KWIKPEN) 100 unit/mL Sig: Inject 8 Units subcutaneously daily with breakfast AND 10 Units daily with dinner. Date of last office visit in primary care: 09/13/2021 4 month follow-up: 01/15/2022 Last 2 Encounter Wt Readings: Date: Wt: 09/13/2021 92.5 kg (204 lb) 06/17/2021 87.1 kg (192 lb) Previous labs/tests for medication: Diabetes: Hemoglobin A1C (%) Date Value 09/13/2021 7.4 06/06/2021 7.6 03/12/2021 9.2 09/07/2020 10.8 Please advise. Thank you. Porsha Do LPN documented in this encounter [facility] 10-23-2021 Miscellaneous Notes Pharmacy verified in [facility] Patient has been identified by name and date of : Yes Patient aware RX will be sent to pharmacy. No need to notify patient. Patient phones for refill(s): Requested Prescriptions Pending Prescriptions Disp Refills amLODIPine (NORVASC) 10 mg tablet 90 tablet 3 Sig: Take 1 tablet by mouth once daily. Date of last office visit : 09/13/2021 Date of next office visit : 01/15/2022 Last 2 Encounter Wt Readings: Date: Wt: 09/13/2021 92.5 kg (204 lb) 06/17/2021 87.1 kg (192 lb) Please advise. Neli Jasso Pss documented in this encounter [facility] 09-27-2021 Miscellaneous Notes Attempted to call patient for today's scheduled pharmacy phone follow up. Not able to reach after several attempts. LVM for patient with instructions to return call to [phone] to re-schedule this visit. Hipolito Quiroz PharmD Primary Care Clinical Pharmacist [facility] documented in this encounter [facility] 09-17-2021 Miscellaneous Notes Letter mailed to pt home of results. Brenda Zelaya MA ----- Message from Carrie Cantu APRN.CNP sent at 09/16/2021 4:23 PM EDT ----- Kidney function and anemia stable. HgbA1c 7.4, diabetes control improving. Keep follow-ups as scheduled Carrie Cantu APRN.CNP documented in this encounter [facility] 09-16-2021 Miscellaneous Notes Spoke with patient. Given message from provider's office. Patient verbalizes understanding. Mercy Rasmussen RN Left message to call & speak to nurse for non-urgent results. Porsha Do LPN ----- Message from Carrie Cantu APRN.RELAY WORKER sent at 09/16/2021 4:23 PM EDT ----- Kidney function and anemia stable. HgbA1c 7.4, diabetes control improving. Keep follow-ups as scheduled Carrie Cantu APRN.RELAY WORKER documented in this encounter [facility] 09-13-2021 History of Present illness Narrative This note was created using DataPop. Subjective Renzo Mead is a 86 year old male. His main complaint was nocturia, urinary frequency, and urgency. His urine flow was good. He was taking alfuzosin. His back pain was chronic. Hypertension was not at goal. Review of Systems Constitutional: Negative. Respiratory: Negative. Cardiovascular: Positive for leg swelling. Negative for chest pain and palpitations. Gastrointestinal: Negative. Genitourinary: Negative for dysuria. Musculoskeletal: Positive for arthralgias and back pain. Neurological: Negative. ACTIVE PROBLEM LIST Essential Hypertension Congenital Pes Planus Benign Prostatic Hyperplasia With Urinary Obstruction Bladder Neck Obstruction Nocturia Cervical Spine Arthritis Venous (Peripheral) Insufficiency Arthritis of Right Knee Dry Skin Dermatitis Frequency of Urination Urgency of Urination Type 2 Diabetes Mellitus With Hyperglycemia, With Long-Term Current Use of Insulin (Hcc) Unsteady Gait Deondre On Cpap Lumbosacral Pain Left Sided Sciatica Anemia Due to Stage 4 Chronic Kidney Disease (Hcc) Hyperlipidemia Current Outpatient Medications Medication Sig dulaglutide (TRULICITY) 1.5 mg/0.5 mL pen injector Inject 1.5 mg subcutaneously one time a week. oxyCODONE-acetaminophen (PERCOCET) 5-325 mg tablet Take 1 tablet by mouth every 8 hours as needed for pain. nystatin (MYCOSTATIN) cream Apply to affected area twice daily. Apply for 7 days to penile rash. Insulin Finley, Disposable, (PEN NEEDLE) 32 gauge x Use with Toujeo insulin daily ezetimibe-simvastatin 10-20 mg (VYTORIN 10/20) 10-20 mg per tablet Take 1 tablet by mouth daily at bedtime. insulin lispro (HUMALOG KWIKPEN) 100 unit/mL Inject 8 Units subcutaneously daily with breakfast AND 10 Units daily with dinner. triamcinolone acetonide (KENALOG) 0.1 % cream Apply 1 application to affected area as needed. daily as needed insulin glargine U-300 conc (TOUJEO) 300 unit/mL (1.5 mL) Inject 16 Units subcutaneously daily at bedtime. Adjust as directed alfuzosin SR (UROXATRAL) 10 mg 24 hr tablet Take 1 tablet by mouth once daily. lancets (ONE TOUCH DELClickFacts) 33 gauge Check blood sugars 3 times daily and as needed for symptoms of sugars being too high or too low. (E11.65, Z79.4) Type 2 diabetes mellitus with hyperglycemia, with long-term current use of insulin ([facility]) blood sugar diagnostic (ONETOUCH VERIO TEST STRIPS) test strip Test blood sugar(s) three times daily. Dx: Type 2 DM - Controlled E11.9 Insulin: Yes amLODIPine (NORVASC) 10 mg tablet Take 1 tablet by mouth once daily. ONETOUCH VERIO SYSTEM misc Aspirin 81 mg tab Take 1 tablet by mouth once daily. Take with food. COMPOUNDED PRESCRIPTION Initiate CPAP @ 11 cm of water with humidification. Mask (per patient preference) optional chin strap (if indicated) tubing , filters, humidifier and lifetime supplies. Dx. DEONDRE 327.23 CENTRUM SILVER TAB Take one(1) tablet daily. VITAMIN C 500 MG TAB Take one(1) tablet daily. No current facility-administered medications for this visit. Objective BP 134/60 (BP Site: Right Arm, BP Position: Sitting, BP Cuff Size: Large Adult) Pulse 94 Temp 36.3 C (97.3 F) Resp 14 Ht 170.2 cm (5' 7 ) Wt 92.5 kg (204 lb) SpO2 96% BMI 31.95 kg/m Physical Exam Constitutional: General: He is not in acute distress. Appearance: He is not ill-appearing. Cardiovascular: Rate and Rhythm: Normal rate and regular rhythm. Heart sounds: No murmur heard. No gallop. Pulmonary: Breath sounds: Normal breath sounds. No wheezing or rales. Abdominal: Palpations: Abdomen is soft. Tenderness: There is no abdominal tenderness. Musculoskeletal: Right lower le+ Pitting Edema present. Left lower le+ Pitting Edema present. Neurological: General: No focal deficit present. Mental Status: He is alert. Assessment and Plan 1. Essential hypertension - ICD9: 401.9, ICD10: I10 (primary diagnosis) - suboptimal control - Continue current medication(s) - Add metoprolol (Lopressor/Toprol) - Reviewed risks of HTN and principles of treatment - Goal of BP <130/80 - METOPROLOL SUCCINATE ER 25 MG TABLET,EXTENDED RELEASE 24 HR 2. Frequency of urination - ICD9: 788.41, ICD10: R35.0 chronic Discussed medication dosage, usage, goals of therapy, and side effects. - OXYBUTYNIN CHLORIDE ER 10 MG TABLET,EXTENDED RELEASE 24 HR 3. Urgency of urination - ICD9: 788.63, ICD10: R39.15 See above. - OXYBUTYNIN CHLORIDE ER 10 MG TABLET,EXTENDED RELEASE 24 HR 4. Type 2 diabetes mellitus with stage 4 chronic kidney disease, with long-term current use of insulin (HCC) - ICD9: 250.40, 585.4, V58.67, ICD10: E11.22, N18.4, Z79.4 improved control - Continue current medications - CONSULT TO NEPHROLOGY - CBC - BASIC METABOLIC PNL - HGB A1C Buck Bishop MD documented in this encounter [facility] 07-26-2021 History of Present illness Narrative Primary Care Pharmacy Visit REASON FOR CONSULT: DM GOALS: A1c < 8% CONSULTING PROVIDER: Mariela Crump APRN Date of Consult: 12/04/2020 Renzo Mead is a 85 year old male presenting for follow up visit by telephone. Patient consents to pharmacy collaborative practice agreement. Last seen by LUAN Carrie Gary on 06/17/21, no medication changes made at that time and recent A1c results indicated A1c at goal. INTERIM HISTORY: Patient reports feeling well States readings are about the safe (see log below) Notes one low BG in 60s at wake up. Does not recall obvious cause, it was the only time he has experienced low BG. Current DM Medications: Insulin lispro (Humalog) 8 units daily with breakfast and 10 units with dinner Insulin glargine (Toujeo) 16 units daily at bedtime Dulaglutide (Trulicity) 1.5 mg once weekly Past DM medications: Metformin - discontinued due to hypoglycemia and renal dosing Glimepiride - discontinued due to hypoglycemia and renal dosing Preventative Medications: On ARIANA/ARB: No On Statin: Yes GLYCEMIC CONTROL: SMBG s: Date Fasting AM 2 hr PP Before Lunch 2 hr PP Before Dinner 2 hr PP Bedtime 07/26 113 212 6/9 136 6/8 126 120 6/7 65 245 /6 120 161 6/5 113 116 6/4 93 203 Hypoglycemia: yes, one readings of 65 mg/dL ROS: Patient denies CP, SOB, SIDDIQUI, blurred vision, dizziness or lightheadedness Patient denies nausea, vomiting, diarrhea, abdominal pain Patient denies symptoms of hypoglycemia (sweating, anxiety, palpitations, hunger, and tremor) Patient denies symptoms of hyperglycemia (polyuria, polydipsia, polyphagia) Patient denies potential medication adverse effects MEDICATIONS: Pill bottles are not present. Adherence: denies missed doses. 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 Obstruction Nocturia Cervical Spine Arthritis Venous (Peripheral) Insufficiency Arthritis of Right Knee Dry Skin Dermatitis Frequency of Urination Urgency of Urination Type 2 Diabetes Mellitus With Hyperglycemia, With Long-Term Current Use of Insulin (Hcc) Unsteady Gait Deondre On Cpap Lumbosacral Pain Left Sided Sciatica Anemia Due to Stage 4 Chronic Kidney Disease (Hcc) Hyperlipidemia PAST MEDICAL HISTORY Diagnosis Date Abdominal pain, left upper quadrant 07/11/2009 JOAN (acute kidney injury) ([facility]) 10/07/2019 Anemia due to stage 4 chronic kidney disease (HCC) 07/08/2020 Benign neoplasm of colon Bursitis of right hip 11/10/2011 Disorder of right rotator cuff 05/17/2013 Obstructive sleep apnea Personal history of colonic polyps 07/11/2009 Pure hypercholesterolemia Type 2 diabetes mellitus with hyperglycemia, with long-term current use of insulin ([facility]) 06/22/2014 Type II or unspecified type diabetes mellitus without mention of complication, uncontrolled Unspecified essential hypertension ALLERGIES Allergen Reactions Amlodipine Other: See Comments nyasia Flynn [Valsartan] Cough Current Outpatient Medications Medication Sig oxyCODONE-acetaminophen (PERCOCET) 5-325 mg tablet Take 1 tablet by mouth every 8 hours as needed for pain. nystatin (MYCOSTATIN) cream Apply to affected area twice daily. Apply for 7 days to penile rash. Insulin Finley, Disposable, (PEN NEEDLE) 32 gauge x Use with Toujeo insulin daily dulaglutide (TRULICITY) 1.5 mg/0.5 mL pen injector Inject 1.5 mg subcutaneously one time a week. ezetimibe-simvastatin 10-20 mg (VYTORIN 10/20) 10-20 mg per tablet Take 1 tablet by mouth daily at bedtime. insulin lispro (HUMALOG KWIKPEN) 100 unit/mL Inject 8 Units subcutaneously daily with breakfast AND 10 Units daily with dinner. triamcinolone acetonide (KENALOG) 0.1 % cream Apply 1 application to affected area as needed. daily as needed insulin glargine U-300 conc (TOUJEO) 300 unit/mL (1.5 mL) Inject 16 Units subcutaneously daily at bedtime. Adjust as directed alfuzosin SR (UROXATRAL) 10 mg 24 hr tablet Take 1 tablet by mouth once daily. lancets (ONE TOUCH DELICA) 33 gauge Check blood sugars 3 times daily and as needed for symptoms of sugars being too high or too low. (E11.65, Z79.4) Type 2 diabetes mellitus with hyperglycemia, with long-term current use of insulin ([facility]) blood sugar diagnostic (U-Planner.comTOUCH VERIO TEST STRIPS) test strip Test blood sugar(s) three times daily. Dx: Type 2 DM - Controlled E11.9 Insulin: Yes amLODIPine (NORVASC) 10 mg tablet Take 1 tablet by mouth once daily. ONETOUCH VERIO SYSTEM misc Aspirin 81 mg tab Take 1 tablet by mouth once daily. Take with food. COMPOUNDED PRESCRIPTION Initiate CPAP @ 11 cm of water with humidification. Mask (per patient preference) optional chin strap (if indicated) tubing , filters, humidifier and lifetime supplies. Dx. DEONDRE 327.23 CENTRUM SILVER TAB Take one(1) tablet daily. VITAMIN C 500 MG TAB Take one(1) tablet daily. No current facility-administered medications for this visit. EXAM: Last 3 Encounter BP Readings: Date: BP: 06/17/2021 128/66 03/18/2021 153/66 12/14/2020 132/68 Wt: 87.1 kg (192 lb) BMI: 29.41 kg/(m^2) LABS: Lab Results Component Value Date HBA1C 7.6 06/06/2021 HBA1C 9.2 03/12/2021 HBA1C 10.8 09/07/2020 HBA1C 11.0 05/30/2020 CMP: Glucose 154 06/06/2021 BUN 34 06/06/2021 Creatinine 2.91 06/06/2021 Sodium 143 06/06/2021 Potassium 3.7 06/06/2021 Chloride 108 06/06/2021 CO2 23 06/06/2021 Protein, Total 6.8 06/06/2021 Albumin 3.9 06/06/2021 Calcium 8.9 06/06/2021 Alkaline Phosphatase 87 06/06/2021 Bilirubin, Total 0.4 06/06/2021 AST 15 06/06/2021 ALT 14 06/06/2021 Serum creatinine: 2.91 mg/dL (H) 06/06/21 1200 Estimated creatinine clearance: 19.1 mL/min (A) Vitamin B12 Date Value Ref Range Status 09/20/2019 367 232 - 1,245 pg/mL Final Lab Results Component Value Date CHOL 116 06/06/2021 CHOL 106 03/07/2020 LDL 61 06/06/2021 LDL 55 03/07/2020 HDL 34 06/06/2021 HDL 34 03/07/2020 TG 105 06/06/2021 TG 83 03/07/2020 The ASCVD Risk score (Kacey TERRI Jr., et al., 2013) failed to calculate for the following reasons: The 2013 ASCVD risk score is only valid for ages 40 to 79 Albumin/Creat Ratio (mg/g) Date Value 03/12/2021 50 (H) PHARMACOTHERAPY ASSESSMENT/PLAN: 1. Type 2 diabetes mellitus with hyperglycemia, with long-term current use of insulin (HCC) - ICD9: 250.00, 790.29, V58.67, ICD10: E11.65, Z79.4 A1c goal < 8%; at goal (last A1c 7.6%); SMBG mostly at goal on current regimen; reports s/sx hypoglycemia; denies s/sx hyperglycemia. Some post prandial readings elevated due to diet excursions. Today, will continue current regimen and encouraged lifestyle changes. Renal function and LFTs appropriate for continued use CONTINUE Toujeo 16 units daily at bedtime, Humalog 8 units daily with breakfast and 10 units with dinner, dulaglutide (Trulicity) 1.5 mg once weekly HbA1c: due 09/05/21 Follow up: Patient is scheduled to see PCP on 09/13/21. Patient to follow up with PharmD on 09/27/21. Patient verbalized understanding of instructions. Hipolito Quiroz PharmD, BCACP Primary Care Clinical Pharmacist [facility] The majority of the pharmacy visit (> 50%) was spent counseling and/or coordinating care for the patient. [Telephonic] time was 13 minutes. documented in this encounter [facility] 06-10-2021 Miscellaneous Notes Patient has been identified by name and date of : Yes Patient phones for refill(s): Pending Prescriptions Disp Refills PEN NEEDLE, DIABETIC 32 GAUGE X 90 Each 3 Sig: Use with Toujeo insulin daily CRISTINA: No Date of last office visit with pcp: 03/18/2021 Future appt: 06/17/2021 Last 2 Encounter Wt Readings: Date: Wt: 03/18/2021 88.9 kg (196 lb) 12/14/2020 88 kg (194 lb) Previous labs/tests for medication: Diabetes: Hemoglobin A1C (%) Date Value 06/06/2021 7.6 03/12/2021 9.2 09/07/2020 10.8 Please advise. Thank you. Marielos Sams RN documented in this encounter [facility] 05-24-2021 History of Present illness Narrative Primary Care Pharmacy Visit REASON FOR CONSULT: DM GOALS: A1c < 8% CONSULTING PROVIDER: Mariela Crump APRN Date of Consult: 12/04/2020 Renzo Mead is a 85 year old male presenting for follow up visit by telephone. Patient consents to pharmacy collaborative practice agreement. Last seen by PCP, Dr. Buck Bishop MD on 03/18/21. At last PCP appt, labs were ordered and nystatin powder prescribed. At PharmD visit on 02/25/21, Humalog dose was increased. At PharmD visit on 04/08, Tradjenta was switched to Trulicity. At last PharmD visit on 05/03, Trulicity dose was increased. INTERIM HISTORY: Reports readings are improved in the morning but remain elevated in the evening (see log below) Has increased Trulicity as prescribed at tolerating well No low blood sugars Current DM Medications: Insulin lispro (Humalog) 8 units daily with breakfast and 10 units with dinner Insulin glargine (Toujeo) 16 units daily at bedtime Dulaglutide (Trulicity) 1.5 mg once weekly Past DM medications: Metformin - discontinued due to hypoglycemia and renal dosing Glimepiride - discontinued due to hypoglycemia and renal dosing Preventative Medications: On ARIANA/ARB: No On Statin: Yes GLYCEMIC CONTROL: Glucometer present at visit: N/A, phone visit SMBG s: Date Fasting AM 2 hr PP Before Lunch 2 hr PP Before Dinner 2 hr PP Bedtime 05/23 89 157 /6 96 212 4/5 102 299 /4 166 246 /3 187 319 4/2 99 243 4/ 106 175 Hypoglycemia: denies ROS: Patient denies CP, SOB, SIDDIQUI, blurred vision, dizziness or lightheadedness Patient denies nausea, vomiting, diarrhea, abdominal pain Patient denies symptoms of hypoglycemia (sweating, anxiety, palpitations, hunger, and tremor) Patient denies symptoms of hyperglycemia (polyuria, polydipsia, polyphagia) Patient denies potential medication adverse effects MEDICATIONS: Pill bottles are not present. Adherence: denies missed doses. 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 Obstruction Nocturia Cervical Spine Arthritis Venous (Peripheral) Insufficiency Arthritis of Right Knee Dry Skin Dermatitis Frequency of Urination Urgency of Urination Type 2 Diabetes Mellitus With Hyperglycemia, With Long-Term Current Use of Insulin ([facility]) Unsteady Gait Deondre On Cpap Lumbosacral Pain Left Sided Sciatica Anemia Due to Stage 4 Chronic Kidney Disease ([facility]) Hyperlipidemia PAST MEDICAL HISTORY Diagnosis Date Abdominal pain, left upper quadrant 07/11/2009 JOAN (acute kidney injury) ([facility]) 10/07/2019 Anemia due to stage 4 chronic kidney disease ([facility]) 07/08/2020 Benign neoplasm of colon Bursitis of right hip 11/10/2011 Disorder of right rotator cuff 05/17/2013 Obstructive sleep apnea Personal history of colonic polyps 07/11/2009 Pure hypercholesterolemia Type 2 diabetes mellitus with hyperglycemia, with long-term current use of insulin ([facility]) 06/22/2014 Type II or unspecified type diabetes mellitus without mention of complication, uncontrolled Unspecified essential hypertension ALLERGIES Allergen Reactions Amlodipine Other: See Comments nyasia Flynn [Valsartan] Cough Current Outpatient Medications Medication Sig dulaglutide (TRULICITY) 1.5 mg/0.5 mL pen injector Inject 1.5 mg subcutaneously one time a week. ezetimibe-simvastatin 10-20 mg (VYTORIN 10/20) 10-20 mg per tablet Take 1 tablet by mouth daily at bedtime. nystatin (MYCOSTATIN) cream Apply to affected area twice daily. Apply for 7 days to penile rash. insulin lispro (HUMALOG KWIKPEN) 100 unit/mL Inject 8 Units subcutaneously daily with breakfast AND 10 Units daily with dinner. triamcinolone acetonide (KENALOG) 0.1 % cream Apply 1 application to affected area as needed. daily as needed insulin glargine U-300 conc (TOUJEO) 300 unit/mL (1.5 mL) Inject 16 Units subcutaneously daily at bedtime. Adjust as directed alfuzosin SR (UROXATRAL) 10 mg 24 hr tablet Take 1 tablet by mouth once daily. lancets (ONE TOUCH DELICA) 33 gauge Check blood sugars 3 times daily and as needed for symptoms of sugars being too high or too low. (E11.65, Z79.4) Type 2 diabetes mellitus with hyperglycemia, with long-term current use of insulin ([facility]) blood sugar diagnostic ([email or web address].comTOUCH VERIO TEST STRIPS) test strip Test blood sugar(s) three times daily. Dx: Type 2 DM - Controlled E11.9 Insulin: Yes amLODIPine (NORVASC) 10 mg tablet Take 1 tablet by mouth once daily. Insulin Finley, Disposable, (PEN NEEDLE) 32 gauge x Use with Toujeo insulin daily ONETOUCH VERIO SYSTEM misc Aspirin 81 mg tab Take 1 tablet by mouth once daily. Take with food. COMPOUNDED PRESCRIPTION Initiate CPAP @ 11 cm of water with humidification. Mask (per patient preference) optional chin strap (if indicated) tubing , filters, humidifier and lifetime supplies. Dx. DEONDRE 327.23 CENTRUM SILVER TAB Take one(1) tablet daily. VITAMIN C 500 MG TAB Take one(1) tablet daily. No current facility-administered medications for this visit. EXAM: Last 3 Encounter BP Readings: Date: BP: 03/18/2021 153/66 12/14/2020 132/68 10/05/2020 128/86 Wt: 88.9 kg (196 lb) BMI: 30.16 kg/(m^2) LABS: Lab Results Component Value Date HBA1C 9.2 03/12/2021 HBA1C 10.8 09/07/2020 HBA1C 11.0 05/30/2020 CMP: Glucose 278 09/07/2020 BUN 45 09/07/2020 Creatinine 2.39 09/07/2020 Sodium 140 09/07/2020 Potassium 3.8 09/07/2020 Chloride 107 09/07/2020 CO2 22 09/07/2020 Protein, Total 7.0 05/30/2020 Albumin 4.2 05/30/2020 Calcium 9.3 09/07/2020 Alkaline Phosphatase 119 05/30/2020 Bilirubin, Total 0.3 05/30/2020 AST 12 05/30/2020 ALT 12 05/30/2020 EGFR: 26 mL/min/1.73m2 Vitamin B12 Date Value Ref Range Status 09/20/2019 367 232 - 1,245 pg/mL Final Lab Results Component Value Date CHOL 106 03/07/2020 LDL 55 03/07/2020 HDL 34 03/07/2020 TG 83 03/07/2020 The ASCVD Risk score (Kaceyjorge MURRAY Jr., et al., 2013) failed to calculate for the following reasons: The 2013 ASCVD risk score is only valid for ages 40 to 79 Albumin/Creat Ratio (mg/g) Date Value 03/12/2021 50 (H) PHARMACOTHERAPY ASSESSMENT/PLAN: 1. Type 2 diabetes mellitus with hyperglycemia, with long-term current use of insulin ([facility]) - ICD9: 250.00, 790.29, V58.67, ICD10: E11.65, Z79.4 A1c goal < 8%; not at goal (last A1c 9.2%); SMBG elevated but improving on current regimen; denies s/sx hypoglycemia; denies s/sx hyperglycemia. Patient is tolerating current regimen with no reported ADEs. Today, will continue current medication with no changes and will await A1c results. If A1c remains above goal, can consider increasing Trulicity weekly dose to 3 mg. Renal function and LFTs appropriate for continued use CONTINUE dulaglutide (Trulicity) 1.5 mg once weekly CONTINUE Toujeo 16 units daily at bedtime, Humalog 8 units daily with breakfast and 10 units with dinner HbA1c: due 06/10/21 Follow up: Patient is scheduled to see RELAY WORKER on 06/17/21. Patient verbalized understanding of instructions. Hipolito Quiroz, PharmD, BCACP Primary Care Clinical Pharmacist [facility] The majority of the pharmacy visit (> 50%) was spent counseling and/or coordinating care for the patient. [Telephonic] time was 18 minutes. documented in this encounter [facility] 05-03-2021 History of Present illness Narrative Primary Care Pharmacy Visit REASON FOR CONSULT: DM GOALS: A1c < 8% CONSULTING PROVIDER: Mariela Crump APRN Date of Consult: 12/04/2020 Renzo Mead is a 85 year old male presenting for follow up visit by telephone. Patient consents to pharmacy collaborative practice agreement. Last seen by PCP, Dr. Buck Bishop MD on 03/18/21. At last PCP appt, labs were ordered and nystatin powder prescribed. At PharmD visit on 02/25/21, Humalog dose was increased. At last PharmD visit on 04/08, Tradjenta was switched to Trulicity. INTERIM HISTORY: Tolerating Trulicity well, has one more pen of 0.75 mg dose remaining No ADEs Seeing some improvement in blood sugars Current DM Medications: Insulin lispro (Humalog) 8 units daily with breakfast and 10 units with dinner Insulin glargine (Toujeo) 16 units daily at bedtime Dulaglutide (Trulicity) 0.75 mg once weekly Past DM medications: Metformin - discontinued due to hypoglycemia and renal dosing Glimepiride - discontinued due to hypoglycemia and renal dosing Preventative Medications: On ARIANA/ARB: No On Statin: Yes GLYCEMIC CONTROL: Glucometer present at visit: n/a, phone visit SMBG s: Date Fasting AM 2 hr PP Before Lunch 2 hr PP Before Dinner 2 hr PP Bedtime 04/27 134 201 04/28 148 227 04/29 148 225 04/30 108 208 05/01 108 05/02 150 210 05/03 132 Hypoglycemia: denies ROS: Patient denies CP, SOB, SIDDIQUI, blurred vision, dizziness or lightheadedness Patient denies nausea, vomiting, diarrhea, abdominal pain Patient denies symptoms of hypoglycemia (sweating, anxiety, palpitations, hunger, and tremor) Patient denies symptoms of hyperglycemia (polyuria, polydipsia, polyphagia) Patient denies potential medication adverse effects MEDICATIONS: Pill bottles are not present. Adherence: denies missed doses. 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 Obstruction Nocturia Cervical Spine Arthritis Venous (Peripheral) Insufficiency Arthritis of Right Knee Dry Skin Dermatitis Frequency of Urination Urgency of Urination Type 2 Diabetes Mellitus With Hyperglycemia, With Long-Term Current Use of Insulin ([facility]) Unsteady Gait Deondre On Cpap Lumbosacral Pain Left Sided Sciatica Anemia Due to Stage 4 Chronic Kidney Disease ([facility]) Hyperlipidemia PAST MEDICAL HISTORY Diagnosis Date Abdominal pain, left upper quadrant 07/11/2009 JOAN (acute kidney injury) ([facility]) 10/07/2019 Anemia due to stage 4 chronic kidney disease ([facility]) 07/08/2020 Benign neoplasm of colon Bursitis of right hip 11/10/2011 Disorder of right rotator cuff 05/17/2013 Obstructive sleep apnea Personal history of colonic polyps 07/11/2009 Pure hypercholesterolemia Type 2 diabetes mellitus with hyperglycemia, with long-term current use of insulin ([facility]) 06/22/2014 Type II or unspecified type diabetes mellitus without mention of complication, uncontrolled Unspecified essential hypertension ALLERGIES Allergen Reactions Amlodipine Other: See Comments nyasia Flynn [Valsartan] Cough Current Outpatient Medications Medication Sig dulaglutide (TRULICITY) 0.75 mg/0.5 mL pen injector Inject 0.75 mg subcutaneously one time a week. ezetimibe-simvastatin 10-20 mg (VYTORIN 10/20) 10-20 mg per tablet Take 1 tablet by mouth daily at bedtime. nystatin (MYCOSTATIN) cream Apply to affected area twice daily. Apply for 7 days to penile rash. insulin lispro (HUMALOG KWIKPEN) 100 unit/mL Inject 8 Units subcutaneously daily with breakfast AND 10 Units daily with dinner. triamcinolone acetonide (KENALOG) 0.1 % cream Apply 1 application to affected area as needed. daily as needed insulin glargine U-300 conc (TOUJEO) 300 unit/mL (1.5 mL) Inject 16 Units subcutaneously daily at bedtime. Adjust as directed alfuzosin SR (UROXATRAL) 10 mg 24 hr tablet Take 1 tablet by mouth once daily. lancets (ONE TOUCH DELICA) 33 gauge Check blood sugars 3 times daily and as needed for symptoms of sugars being too high or too low. (E11.65, Z79.4) Type 2 diabetes mellitus with hyperglycemia, with long-term current use of insulin ([facility]) blood sugar diagnostic (ONETOUCH VERIO TEST STRIPS) test strip Test blood sugar(s) three times daily. Dx: Type 2 DM - Controlled E11.9 Insulin: Yes amLODIPine (NORVASC) 10 mg tablet Take 1 tablet by mouth once daily. Insulin Finley, Disposable, (PEN NEEDLE) 32 gauge x 5/32 Use with Toujeo insulin daily ONETOUCH VERIO SYSTEM misc Aspirin 81 mg tab Take 1 tablet by mouth once daily. Take with food. COMPOUNDED PRESCRIPTION Initiate CPAP @ 11 cm of water with humidification. Mask (per patient preference) optional chin strap (if indicated) tubing , filters, humidifier and lifetime supplies. Dx. DEONDRE 327.23 CENTRUM SILVER TAB Take one(1) tablet daily. VITAMIN C 500 MG TAB Take one(1) tablet daily. No current facility-administered medications for this visit. EXAM: Last 3 Encounter BP Readings: Date: BP: 03/18/2021 153/66 12/14/2020 132/68 10/05/2020 128/86 Wt: 88.9 kg (196 lb) BMI: 30.16 kg/(m^2) LABS: Lab Results Component Value Date HBA1C 9.2 03/12/2021 HBA1C 10.8 09/07/2020 HBA1C 11.0 05/30/2020 CMP: Glucose 278 09/07/2020 BUN 45 09/07/2020 Creatinine 2.39 09/07/2020 Sodium 140 09/07/2020 Potassium 3.8 09/07/2020 Chloride 107 09/07/2020 CO2 22 09/07/2020 Protein, Total 7.0 05/30/2020 Albumin 4.2 05/30/2020 Calcium 9.3 09/07/2020 Alkaline Phosphatase 119 05/30/2020 Bilirubin, Total 0.3 05/30/2020 AST 12 05/30/2020 ALT 12 05/30/2020 EGFR: 26 mL/min/1.73m2 Vitamin B12 Date Value Ref Range Status 09/20/2019 367 232 - 1,245 pg/mL Final Lab Results Component Value Date CHOL 106 03/07/2020 LDL 55 03/07/2020 HDL 34 03/07/2020 TG 83 03/07/2020 The ASCVD Risk score (Uvalda TERRI Jr., et al., 2013) failed to calculate for the following reasons: The 2013 ASCVD risk score is only valid for ages 40 to 79 Albumin/Creat Ratio (mg/g) Date Value 03/12/2021 50 (H) PHARMACOTHERAPY ASSESSMENT/PLAN: 1. Type 2 diabetes mellitus with hyperglycemia, with long-term current use of insulin ([facility]) - ICD9: 250.00, 790.29, V58.67, ICD10: E11.65, Z79.4 A1c goal < 8%; not at goal (last A1c 9.2%); SMBG elevated but improving on current regimen; denies s/sx hypoglycemia; denies s/sx hyperglycemia. Tolerating current regimen. Today, will optimize Trulicity dose. Renal function and LFTs appropriate for continued use INCREASE dulaglutide (Trulicity) 1.5 mg once weekly CONTINUE Toujeo 16 units daily at bedtime, Humalog 8 units daily with breakfast and 10 units with dinner HbA1c: due 06/10/21 - TRULICITY 1.5 MG/0.5 ML SUBCUTANEOUS PEN INJECTOR Follow up: Patient is scheduled to see RELAY WORKER on 06/17/21. Patient to follow up with PharmD on 05/24/21. Patient verbalized understanding of instructions. Hipolito Quiroz PharmD, BCACP Primary Care Clinical Pharmacist [facility] The majority of the pharmacy visit (> 50%) was spent counseling and/or coordinating care for the patient. [Telephonic] time was 17 minutes. documented in this encounter [facility] documented as of this encounter (statuses as of 05/14/2021) [facility] History of Past illness Narrative* Problem Noted Date Resolved Date JOAN (acute kidney injury) 10/07/20192021 Bursitis of right hip 11/10/2011 12/14/2020 Abdominal pain, left upper quadrant 07/11/2009 12/14/2020 Personal history of colonic polyps 07/11/2009 12/14/2020 PURE HYPERCHOLESTEROLEM 02/27/19 16 Type II or unspecified type diabetes mellitus without mention of complication, uncontrolled 09/30/2013 documented as of this encounter (statuses as of 06/10/2021) [facility] History of Past illness Narrative* Problem Noted Date Resolved Date JOAN (acute kidney injury) 10/07/20192021 Bursitis of right hip 11/10/2011 12/14/2020 Abdominal pain, left upper quadrant 07/11/2009 12/14/2020 Personal history of colonic polyps 07/11/2009 12/14/2020 PURE HYPERCHOLESTEROLEM 02/27/19 16 Type II or unspecified type diabetes mellitus without mention of complication, uncontrolled 09/30/2013 documented as of this encounter (statuses as of 06/11/2021) [facility] History of Past illness Narrative* Problem Noted Date Resolved Date JOAN (acute kidney injury) 10/07/20192021 Bursitis of right hip 11/10/2011 12/14/2020 Abdominal pain, left upper quadrant 07/11/2009 12/14/2020 Personal history of colonic polyps 07/11/2009 12/14/2020 PURE HYPERCHOLESTEROLEM 02/27/19 16 Type II or unspecified type diabetes mellitus without mention of complication, uncontrolled 09/30/2013 documented as of this encounter (statuses as of 07/26/2021) [facility] History of Past illness Narrative* Problem Noted Date Resolved Date JOAN (acute kidney injury) 10/07/20192021 Bursitis of right hip 11/10/2011 12/14/2020 Abdominal pain, left upper quadrant 07/11/2009 12/14/2020 Personal history of colonic polyps 07/11/2009 12/14/2020 PURE HYPERCHOLESTEROLEM 02/27/19 16 Type II or unspecified type diabetes mellitus without mention of complication, uncontrolled 09/30/2013 documented as of this encounter (statuses as of 09/13/2021) [facility] History of Past illness Narrative* Problem Noted Date Resolved Date JOAN (acute kidney injury) 10/07/20192021 Bursitis of right hip 11/10/2011 12/14/2020 Abdominal pain, left upper quadrant 07/11/2009 12/14/2020 Personal history of colonic polyps 07/11/2009 12/14/2020 PURE HYPERCHOLESTEROLEM 02/27/19 16 Type II or unspecified type diabetes mellitus without mention of complication, uncontrolled 09/30/2013 documented as of this encounter (statuses as of 09/16/2021) [facility] History of Past illness Narrative* Problem Noted Date Resolved Date JOAN (acute kidney injury) 10/07/20192021 Bursitis of right hip 11/10/2011 12/14/2020 Abdominal pain, left upper quadrant 07/11/2009 12/14/2020 Personal history of colonic polyps 07/11/2009 12/14/2020 PURE HYPERCHOLESTEROLEM 02/27/19 16 Type II or unspecified type diabetes mellitus without mention of complication, uncontrolled 09/30/2013 documented as of this encounter (statuses as of 09/17/2021) [facility] History of Past illness Narrative* Problem Noted Date Resolved Date JOAN (acute kidney injury) 10/07/20192021 Bursitis of right hip 11/10/2011 12/14/2020 Abdominal pain, left upper quadrant 07/11/2009 12/14/2020 Personal history of colonic polyps 07/11/2009 12/14/2020 PURE HYPERCHOLESTEROLEM 02/27/19 16 Type II or unspecified type diabetes mellitus without mention of complication, uncontrolled 09/30/2013 documented as of this encounter (statuses as of 10/23/2021) [facility] History of Past illness Narrative* Problem Noted Date Resolved Date JOAN (acute kidney injury) 10/07/20192021 Bursitis of right hip 11/10/2011 12/14/2020 Abdominal pain, left upper quadrant 07/11/2009 12/14/2020 Personal history of colonic polyps 07/11/2009 12/14/2020 PURE HYPERCHOLESTEROLEM 02/27/19 16 Type II or unspecified type diabetes mellitus without mention of complication, uncontrolled 09/30/2013 documented as of this encounter (statuses as of 11/22/2021) [facility] History of Past illness Narrative* Problem Noted Date Resolved Date JOAN (acute kidney injury) 10/07/20192021 Bursitis of right hip 11/10/2011 12/14/2020 Abdominal pain, left upper quadrant 07/11/2009 12/14/2020 Personal history of colonic polyps 07/11/2009 12/14/2020 PURE HYPERCHOLESTEROLEM 02/27/19 16 Type II or unspecified type diabetes mellitus without mention of complication, uncontrolled 09/30/2013 documented as of this encounter (statuses as of 11/29/2021) [facility] History of Past illness Narrative* Problem Noted Date Resolved Date JOAN (acute kidney injury) 10/07/20192021 Bursitis of right hip 11/10/2011 12/14/2020 Abdominal pain, left upper quadrant 07/11/2009 12/14/2020 Personal history of colonic polyps 07/11/2009 12/14/2020 PURE HYPERCHOLESTEROLEM 02/27/19 16 Type II or unspecified type diabetes mellitus without mention of complication, uncontrolled 09/30/2013 documented as of this encounter (statuses as of 12/10/2021) [facility] History of Past illness Narrative* Problem Noted Date Resolved Date JOAN (acute kidney injury) 10/07/20192021 Bursitis of right hip 11/10/2011 12/14/2020 Abdominal pain, left upper quadrant 07/11/2009 12/14/2020 Personal history of colonic polyps 07/11/2009 12/14/2020 PURE HYPERCHOLESTEROLEM 02/27/19 16 Type II or unspecified type diabetes mellitus without mention of complication, uncontrolled 09/30/2013 documented as of this encounter (statuses as of 01/09/2022) [facility] History of Past illness Narrative* Problem Noted Date Resolved Date JOAN (acute kidney injury) 10/07/20192021 Unsteady gait 06/22/2014 01/15/2022 Urgency of urination 10/19/2013 01/15/2022 Dry skin dermatitis 03/07/2012 01/15/2022 Bursitis of right hip 11/10/2011 12/14/2020 Abdominal pain, left upper quadrant 07/11/2009 12/14/2020 Personal history of colonic polyps 07/11/2009 12/14/2020 Nocturia 01/06/2008 01/15/2022 Bladder neck obstruction 12/03/200601/15/2 022 Congenital pes planus 06/30/2006 01/15/2022 PURE HYPERCHOLESTEROLEM 02/27/19 16 Type II or unspecified type diabetes mellitus without mention of complication, uncontrolled 09/30/2013 documented as of this encounter (statuses as of 01/15/2022) [facility] History of Past illness Narrative* Problem Noted Date Resolved Date JOAN (acute kidney injury) 10/07/20192021 Unsteady gait 06/22/2014 01/15/2022 Urgency of urination 10/19/2013 01/15/2022 Dry skin dermatitis 03/07/2012 01/15/2022 Bursitis of right hip 11/10/2011 12/14/2020 Abdominal pain, left upper quadrant 07/11/2009 12/14/2020 Personal history of colonic polyps 07/11/2009 12/14/2020 Nocturia 01/06/2008 01/15/2022 Bladder neck obstruction 12/03/200601/15/2 022 Congenital pes planus 06/30/2006 01/15/2022 PURE HYPERCHOLESTEROLEM 02/27/19 16 Type II or unspecified type diabetes mellitus without mention of complication, uncontrolled 09/30/2013 documented as of this encounter (statuses as of 02/01/2022) [address]21-2020 History of Past illness Narrative* Problem Noted Date Resolved Date JOAN (acute kidney injury) 10/07/20192021 Unsteady gait 06/22/2014 01/15/2022 Urgency of urination 10/19/2013 01/15/2022 Dry skin dermatitis 03/07/2012 01/15/2022 Bursitis of right hip 11/10/2011 12/14/2020 Abdominal pain, left upper quadrant 07/11/2009 12/14/2020 Personal history of colonic polyps 07/11/2009 12/14/2020 Nocturia 01/06/2008 01/15/2022 Bladder neck obstruction 12/03/2006 022 Congenital pes planus 06/30/2006 01/15/2022 PURE HYPERCHOLESTEROLEM 02/27/19 16 Type II or unspecified type diabetes mellitus without mention of complication, uncontrolled 09/30/2013 documented as of this encounter (statuses as of 02/04/2022) [facility] History of Past illness Narrative* Problem Noted Date Resolved Date JOAN (acute kidney injury) 10/07/20192021 Unsteady gait 06/22/2014 01/15/2022 Urgency of urination 10/19/2013 01/15/2022 Dry skin dermatitis 03/07/2012 01/15/2022 Bursitis of right hip 11/10/2011 12/14/2020 Abdominal pain, left upper quadrant 07/11/2009 12/14/2020 Personal history of colonic polyps 07/11/2009 12/14/2020 Nocturia 01/06/2008 01/15/2022 Bladder neck obstruction 12/03/200601/15/2 022 Congenital pes planus 06/30/2006 01/15/2022 PURE HYPERCHOLESTEROLEM 02/27/19 16 Type II or unspecified type diabetes mellitus without mention of complication, uncontrolled 09/30/2013 documented as of this encounter (statuses as of 02/04/2022) [facility] History of Past illness Narrative* Problem Noted Date Resolved Date JOAN (acute kidney injury) 10/07/20192021 Unsteady gait 06/22/2014 01/15/2022 Urgency of urination 10/19/2013 01/15/2022 Dry skin dermatitis 03/07/2012 01/15/2022 Bursitis of right hip 11/10/2011 12/14/2020 Abdominal pain, left upper quadrant 07/11/2009 12/14/2020 Personal history of colonic polyps 07/11/2009 12/14/2020 Nocturia 01/06/2008 01/15/2022 Bladder neck obstruction 12/03/200601/15/2 022 Congenital pes planus 06/30/2006 01/15/2022 PURE HYPERCHOLESTEROLEM 02/27/19 16 Type II or unspecified type diabetes mellitus without mention of complication, uncontrolled 09/30/2013 documented as of this encounter (statuses as of 03/03/2022) [facility] History of Past illness Narrative* Problem Noted Date Resolved Date JOAN (acute kidney injury) 10/07/20192021 Unsteady gait 06/22/2014 01/15/2022 Urgency of urination 10/19/2013 01/15/2022 Dry skin dermatitis 03/07/2012 01/15/2022 Bursitis of right hip 11/10/2011 12/14/2020 Abdominal pain, left upper quadrant 07/11/2009 12/14/2020 Personal history of colonic polyps 07/11/2009 12/14/2020 Nocturia 01/06/2008 01/15/2022 Bladder neck obstruction 12/03/200601/15/2 022 Congenital pes planus 06/30/2006 01/15/2022 PURE HYPERCHOLESTEROLEM 02/27/19 16 Type II or unspecified type diabetes mellitus without mention of complication, uncontrolled 09/30/2013 documented as of this encounter (statuses as of 04/03/2022) [facility] History of Past illness Narrative* Problem Noted Date Resolved Date JOAN (acute kidney injury) 10/07/20192021 Unsteady gait 06/22/2014 01/15/2022 Urgency of urination 10/19/2013 01/15/2022 Dry skin dermatitis 03/07/2012 01/15/2022 Bursitis of right hip 11/10/2011 12/14/2020 Abdominal pain, left upper quadrant 07/11/2009 12/14/2020 Personal history of colonic polyps 07/11/2009 12/14/2020 Nocturia 01/06/2008 01/15/2022 Bladder neck obstruction 12/03/2006 022 Congenital pes planus 06/30/2006 01/15/2022 PURE HYPERCHOLESTEROLEM 02/27/19 16 Type II or unspecified type diabetes mellitus without mention of complication, uncontrolled 09/30/2013 documented as of this encounter (statuses as of 04/17/2022) [facility] History of Past illness Narrative* Problem Noted Date Resolved Date JOAN (acute kidney injury) 10/07/20192021 Unsteady gait 06/22/2014 01/15/2022 Urgency of urination 10/19/2013 01/15/2022 Dry skin dermatitis 03/07/2012 01/15/2022 Bursitis of right hip 11/10/2011 12/14/2020 Abdominal pain, left upper quadrant 07/11/2009 12/14/2020 Personal history of colonic polyps 07/11/2009 12/14/2020 Nocturia 01/06/2008 01/15/2022 Bladder neck obstruction 12/03/2006 022 Congenital pes planus 06/30/2006 01/15/2022 PURE HYPERCHOLESTEROLEM 02/27/19 16 Type II or unspecified type diabetes mellitus without mention of complication, uncontrolled 09/30/2013 documented as of this encounter (statuses as of 05/06/2022) [facility] History of Past illness Narrative* Problem Noted Date Resolved Date JOAN (acute kidney injury) 10/07/20192021 Unsteady gait 06/22/2014 01/15/2022 Urgency of urination 10/19/2013 01/15/2022 Dry skin dermatitis 03/07/2012 01/15/2022 Bursitis of right hip 11/10/2011 12/14/2020 Abdominal pain, left upper quadrant 07/11/2009 12/14/2020 Personal history of colonic polyps 07/11/2009 12/14/2020 Nocturia 01/06/2008 01/15/2022 Bladder neck obstruction 12/03/20062 022 Congenital pes planus 06/30/2006 01/15/2022 PURE HYPERCHOLESTEROLEM 02/27/19 16 Type II or unspecified type diabetes mellitus without mention of complication, uncontrolled 09/30/2013 documented as of this encounter (statuses as of 05/16/2022) [facility] History of Past illness Narrative* Problem Noted Date Resolved Date JOAN (acute kidney injury) 10/07/20192021 Unsteady gait 06/22/2014 01/15/2022 Urgency of urination 10/19/2013 01/15/2022 Dry skin dermatitis 03/07/2012 01/15/2022 Bursitis of right hip 11/10/2011 12/14/2020 Abdominal pain, left upper quadrant 07/11/2009 12/14/2020 Personal history of colonic polyps 07/11/2009 12/14/2020 Nocturia 01/06/2008 01/15/2022 Bladder neck obstruction 12/03/2006 022 Congenital pes planus 06/30/2006 01/15/2022 PURE HYPERCHOLESTEROLEM 02/27/19 16 Type II or unspecified type diabetes mellitus without mention of complication, uncontrolled 09/30/2013 documented as of this encounter (statuses as of 05/29/2022) [facility] History of Past illness Narrative* Problem Noted Date Resolved Date JOAN (acute kidney injury) 10/07/20192021 Unsteady gait 06/22/2014 01/15/2022 Urgency of urination 10/19/2013 01/15/2022 Dry skin dermatitis 03/07/2012 01/15/2022 Bursitis of right hip 11/10/2011 12/14/2020 Abdominal pain, left upper quadrant 07/11/2009 12/14/2020 Personal history of colonic polyps 07/11/2009 12/14/2020 Nocturia 01/06/2008 01/15/2022 Bladder neck obstruction 12/03/200601/15/2 022 Congenital pes planus 06/30/2006 01/15/2022 PURE HYPERCHOLESTEROLEM 02/27/19 16 Type II or unspecified type diabetes mellitus without mention of complication, uncontrolled 09/30/2013 documented as of this encounter (statuses as of 06/16/2022) [facility] History of Past illness Narrative* Problem Noted Date Resolved Date JOAN (acute kidney injury) 10/07/20192021 Unsteady gait 06/22/2014 01/15/2022 Urgency of urination 10/19/2013 01/15/2022 Dry skin dermatitis 03/07/2012 01/15/2022 Bursitis of right hip 11/10/2011 12/14/2020 Abdominal pain, left upper quadrant 07/11/2009 12/14/2020 Personal history of colonic polyps 07/11/2009 12/14/2020 Nocturia 01/06/2008 01/15/2022 Bladder neck obstruction 12/03/200601/15/2 022 Congenital pes planus 06/30/2006 01/15/2022 PURE HYPERCHOLESTEROLEM 02/27/19 16 Type II or unspecified type diabetes mellitus without mention of complication, uncontrolled 09/30/2013 documented as of this encounter (statuses as of 07/30/2022) [facility] History of Past illness Narrative* Problem Noted Date Resolved Date JOAN (acute kidney injury) 10/07/20192021 Unsteady gait 06/22/2014 01/15/2022 Urgency of urination 10/19/2013 01/15/2022 Dry skin dermatitis 03/07/2012 01/15/2022 Bursitis of right hip 11/10/2011 12/14/2020 Abdominal pain, left upper quadrant 07/11/2009 12/14/2020 Personal history of colonic polyps 07/11/2009 12/14/2020 Nocturia 01/06/2008 01/15/2022 Bladder neck obstruction 12/03/200601/15/2 022 Congenital pes planus 06/30/2006 01/15/2022 PURE HYPERCHOLESTEROLEM 02/27/19 16 Type II or unspecified type diabetes mellitus without mention of complication, uncontrolled 09/30/2013 documented as of this encounter (statuses as of 08/07/2022) [facility] History of Past illness Narrative* Problem Noted Date Resolved Date JOAN (acute kidney injury) 10/07/20192021 Unsteady gait 06/22/2014 01/15/2022 Urgency of urination 10/19/2013 01/15/2022 Dry skin dermatitis 03/07/2012 01/15/2022 Bursitis of right hip 11/10/2011 12/14/2020 Abdominal pain, left upper quadrant 07/11/2009 12/14/2020 Personal history of colonic polyps 07/11/2009 12/14/2020 Nocturia 01/06/2008 01/15/2022 Bladder neck obstruction 12/03/2006 022 Congenital pes planus 06/30/2006 01/15/2022 PURE HYPERCHOLESTEROLEM 02/27/19 16 Type II or unspecified type diabetes mellitus without mention of complication, uncontrolled 09/30/2013 documented as of this encounter (statuses as of 08/12/2022) [facility] History of Past illness Narrative* Problem Noted Date Diagnosed Date Resolved Date JOAN (acute kidney injury) 10/07/2019 Unsteady gait 06/22/2014 01/15/2022 Urgency of urination 10/19/2013 022 Dry skin dermatitis 03/07/2012 01/16/20 22 Bursitis of right hip 11/10/20112020 Abdominal pain, left upper quadrant 07/11/2009 12/14/2020 Personal history of colonic polyps 07/11/2009 12/14/2020 Nocturia 01/06/2008 01/15/2022 Bladder neck obstruction 12/03/2006 Congenital pes planus 06/30/20062021 PURE HYPERCHOLESTEROLEM 02/16 Type II or unspecified type diabetes mellitus without mention of complication, uncontrolled 09/30/2013 documented as of this encounter (statuses as of 09/03/2022) [facility] History of Past illness Narrative* Problem Noted Date Diagnosed Date Resolved Date JOAN (acute kidney injury) 10/07/2019 Unsteady gait 06/22/2014 01/15/2022 Urgency of urination 10/19/2013 022 Dry skin dermatitis 03/07/2012 01/16/20 22 Bursitis of right hip 11/10/20112020 Abdominal pain, left upper quadrant 07/11/2009 12/14/2020 Personal history of colonic polyps 07/11/2009 12/14/2020 Nocturia 01/06/2008 01/15/2022 Bladder neck obstruction 12/03/2006 Congenital pes planus 06/30/20062021 PURE HYPERCHOLESTEROLEM 02/16 Type II or unspecified type diabetes mellitus without mention of complication, uncontrolled 09/30/2013 documented as of this encounter (statuses as of 09/18/2022) [facility] History of Past illness Narrative* Problem Noted Date Diagnosed Date Resolved Date JOAN (acute kidney injury) 10/07/2019 Unsteady gait 06/22/2014 01/15/2022 Urgency of urination 10/19/201301/15/ 022 Dry skin dermatitis 03/07/2012 01/16/20 22 Bursitis of right hip 11/10/20112020 Abdominal pain, left upper quadrant 07/11/2009 12/14/2020 Personal history of colonic polyps 07/11/2009 12/14/2020 Nocturia 01/06/2008 01/15/2022 Bladder neck obstruction 12/03/2006 Congenital pes planus 06/30/20062021 PURE HYPERCHOLESTEROLEM 02/16 Type II or unspecified type diabetes mellitus without mention of complication, uncontrolled 09/30/2013 documented as of this encounter (statuses as of 09/23/2022) [facility] History of Past illness Narrative* Problem Noted Date Diagnosed Date Resolved Date JOAN (acute kidney injury) 10/07/2019 Unsteady gait 06/22/2014 01/15/2022 Urgency of urination 10/19/2013 022 Dry skin dermatitis 03/07/2012 01/16/20 22 Bursitis of right hip 11/10/20112020 Abdominal pain, left upper quadrant 07/11/2009 12/14/2020 Personal history of colonic polyps 07/11/2009 12/14/2020 Nocturia 01/06/2008 01/15/2022 Bladder neck obstruction 12/03/2006 Congenital pes planus 06/30/20062021 PURE HYPERCHOLESTEROLEM 02/16 Type II or unspecified type diabetes mellitus without mention of complication, uncontrolled 09/30/2013 documented as of this encounter (statuses as of 10/13/2022) [facility] History of Past illness Narrative* Problem Noted Date Diagnosed Date Resolved Date JOAN (acute kidney injury) 10/07/2019 Unsteady gait 06/22/2014 01/15/2022 Urgency of urination 10/19/2013 022 Dry skin dermatitis 03/07/2012 01/16/20 22 Bursitis of right hip 11/10/20112020 Abdominal pain, left upper quadrant 07/11/2009 12/14/2020 Personal history of colonic polyps 07/11/2009 12/14/2020 Nocturia 01/06/2008 01/15/2022 Bladder neck obstruction 12/03/2006 Congenital pes planus 06/30/20062021 PURE HYPERCHOLESTEROLEM 02/16 Type II or unspecified type diabetes mellitus without mention of complication, uncontrolled 09/30/2013 documented as of this encounter (statuses as of 11/07/2022) [facility] History of Past illness Narrative* Problem Noted Date Diagnosed Date Resolved Date JOAN (acute kidney injury) 10/07/2019 Unsteady gait 06/22/2014 01/15/2022 Urgency of urination 10/19/2013 022 Dry skin dermatitis 03/07/2012 01/16/20 22 Bursitis of right hip 11/10/20112020 Abdominal pain, left upper quadrant 07/11/2009 12/14/2020 Personal history of colonic polyps 07/11/2009 12/14/2020 Nocturia 01/06/2008 01/15/2022 Bladder neck obstruction 12/03/2006 Congenital pes planus 06/30/20062021 PURE HYPERCHOLESTEROLEM 02/16 Type II or unspecified type diabetes mellitus without mention of complication, uncontrolled 09/30/2013 documented as of this encounter (statuses as of 11/14/2022) [facility] History of Past illness Narrative* Problem Noted Date Diagnosed Date Resolved Date JOAN (acute kidney injury) 10/07/2019 Unsteady gait 06/22/2014 01/15/2022 Urgency of urination 10/19/2013 022 Dry skin dermatitis 03/07/2012 01/16/20 22 Bursitis of right hip 11/10/20112020 Abdominal pain, left upper quadrant 07/11/2009 12/14/2020 Personal history of colonic polyps 07/11/2009 12/14/2020 Nocturia 01/06/2008 01/15/2022 Bladder neck obstruction 12/03/2006 Congenital pes planus 06/30/20062021 PURE HYPERCHOLESTEROLEM 02/16 Type II or unspecified type diabetes mellitus without mention of complication, uncontrolled 09/30/2013 documented as of this encounter (statuses as of 11/15/2022) [facility] History of Past illness Narrative* Problem Noted Date Diagnosed Date Resolved Date JOAN (acute kidney injury) 10/07/2019 Unsteady gait 06/22/2014 01/15/2022 Urgency of urination 10/19/2013 022 Dry skin dermatitis 03/07/2012 01/16/20 22 Bursitis of right hip 11/10/20112020 Abdominal pain, left upper quadrant 07/11/2009 12/14/2020 Personal history of colonic polyps 07/11/2009 12/14/2020 Nocturia 01/06/2008 01/15/2022 Bladder neck obstruction 12/03/2006 Congenital pes planus 06/30/20062021 PURE HYPERCHOLESTEROLEM 02/16 Type II or unspecified type diabetes mellitus without mention of complication, uncontrolled 09/30/2013 documented as of this encounter (statuses as of 12/11/2022) [facility] History of Past illness Narrative* Problem Noted Date Diagnosed Date Resolved Date JOAN (acute kidney injury) 10/07/2019 Unsteady gait 06/22/2014 01/15/2022 Urgency of urination 10/19/201301/15/2 022 Dry skin dermatitis 03/07/2012 01/16/20 22 Bursitis of right hip 11/10/20112020 Abdominal pain, left upper quadrant 07/11/2009 12/14/2020 Personal history of colonic polyps 07/11/2009 12/14/2020 Nocturia 01/06/2008 01/15/2022 Bladder neck obstruction 12/03/2006 Congenital pes planus 06/30/20062021 PURE HYPERCHOLESTEROLEM 02/16 Type II or unspecified type diabetes mellitus without mention of complication, uncontrolled 09/30/2013 documented as of this encounter (statuses as of 01/02/2023) [facility] History of Past illness Narrative* Problem Noted Date Diagnosed Date Resolved Date JOAN (acute kidney injury) 10/07/2019 Unsteady gait 06/22/2014 01/15/2022 Urgency of urination 10/19/201301/15/2 022 Dry skin dermatitis 03/07/2012 01/16/20 22 Bursitis of right hip 11/10/20112020 Abdominal pain, left upper quadrant 07/11/2009 12/14/2020 Personal history of colonic polyps 07/11/2009 12/14/2020 Nocturia 01/06/2008 01/15/2022 Bladder neck obstruction 12/03/2006 Congenital pes planus 06/30/20062021 PURE HYPERCHOLESTEROLEM 02/16 Type II or unspecified type diabetes mellitus without mention of complication, uncontrolled 09/30/2013 documented as of this encounter (statuses as of 01/06/2023) [facility] History of Past illness Narrative* Problem Noted Date Diagnosed Date Resolved Date OJAN (acute kidney injury) 10/07/2019 Unsteady gait 06/22/2014 01/15/2022 Urgency of urination 10/19/201301/15/ 022 Dry skin dermatitis 03/07/2012 01/16/20 22 Bursitis of right hip 11/10/20112020 Abdominal pain, left upper quadrant 07/11/2009 12/14/2020 Personal history of colonic polyps 07/11/2009 12/14/2020 Nocturia 01/06/2008 01/15/2022 Bladder neck obstruction 12/03/2006 Congenital pes planus 06/30/20062021 PURE HYPERCHOLESTEROLEM 02/16 Type II or unspecified type diabetes mellitus without mention of complication, uncontrolled 09/30/2013 documented as of this encounter (statuses as of 01/12/2023) [facility] Diagnosis Type 2 diabetes mellitus with hyperglycemia, with long-term current use of insulin (HCC)- [facility] Type 2 diabetes mellitus with hyperglycemia, with long-term current use of insulin (HCC)- Primary [facility] Diagnosis Type 2 diabetes mellitus with hyperglycemia, with long-term current use of insulin (HCC)- Primary [facility] Diagnosis Essential hypertension- Primary Unspecified essential hypertension Frequency of urination Urinary frequency Urgency of urination Type 2 diabetes mellitus with stage 4 chronic kidney disease, with long-term current use of insulin (HCC) [facility] Diagnosis Essential hypertension Unspecified essential hypertension [facility] Diagnosis Type 2 diabetes mellitus with hyperglycemia, with long-term current use of insulin (HCC) Uncontrolled type 2 diabetes mellitus with hyperglycemia (HCC) [facility] Diagnosis Essential hypertension Unspecified essential hypertension Frequency of urination Urinary frequency Urgency of urination [facility] Diagnosis Uncontrolled type 2 diabetes mellitus with hyperglycemia (HCC) [facility]* Diagnosis Type 2 diabetes mellitus with stage 4 chronic kidney disease, with long-term current use of insulin (HCC)- Primary Essential hypertension Unspecified essential hypertension Frequency of urination Urinary frequency Benign prostatic hyperplasia with urinary obstruction Need for influenza vaccination Need for prophylactic vaccination and inoculation against influenza Need for vaccination Need for prophylactic vaccination and inoculation against unspecified single disease Obesity, Class I, BMI 30-34.9 Obesity, unspecified Actinic keratosis of forehead [facility] Diagnosis Hyperlipidemia, unspecified hyperlipidemia type [facility]* Diagnosis Early dry stage nonexudative age-related macular degeneration of both eyes- Primary Type 2 diabetes mellitus without retinopathy (HCC) Type II or unspecified type diabetes mellitus without mention of complication, not stated as uncontrolled PVD (posterior vitreous detachment), both eyes Vitreous degeneration Pseudophakia of both eyes Lens replaced by other means Presbyopia [facility] Diagnosis Essential hypertension Unspecified essential hypertension [facility] Diagnosis Frequency of urination Urinary frequency [facility] Diagnosis Acute cough- Primary [facility] Diagnosis Type 2 diabetes mellitus with hyperglycemia, with long-term current use of insulin (HCC) [facility] Diagnosis Right hand pain- Primary Pain in limb Acute pain of right shoulder Fall, initial encounter Bursitis, unspecified site [facility] Diagnosis Essential hypertension Unspecified essential hypertension [facility] Diagnosis Primary osteoarthritis of first carpometacarpal joint of right hand- Primary Primary localized osteoarthrosis, hand Pain Generalized pain [facility] Diagnosis Frequency of urination Urinary frequency [facility] Diagnosis Medicare annual wellness visit, subsequent- Primary Routine general medical examination at a [facility] Type 2 diabetes mellitus with stage 4 chronic kidney disease, with long-term current use of insulin (HCC) Essential hypertension Unspecified essential hypertension Hyperlipidemia, unspecified hyperlipidemia type Frequency of urination Urinary frequency Left sided sciatica Sciatica Anemia due to stage 4 chronic kidney disease (HCC) [facility] Diagnosis Carpal tunnel syndrome of right wrist- Primary Carpal tunnel syndrome [facility] Diagnosis Right carpal tunnel syndrome- Primary Carpal tunnel syndrome [facility] Diagnosis Right carpal tunnel syndrome- Primary Carpal tunnel syndrome [facility] Diagnosis Right carpal tunnel syndrome- Primary Carpal tunnel syndrome [facility] Diagnosis Essential hypertension Unspecified essential hypertension [facility] Diagnosis Type 2 diabetes mellitus with hyperglycemia, with long-term current use of insulin (HCC) [facility] Diagnosis Uncontrolled type 2 diabetes mellitus with hyperglycemia (HCC) [facility] Diagnosis Type 2 diabetes mellitus with stage 4 chronic kidney disease, with long-term current use of insulin (HCC)- Primary Hyperlipidemia, unspecified hyperlipidemia type Benign prostatic hyperplasia with urinary obstruction Chronic cough Cough documented in this encounter [facility] for referral (narrative)* Diagnostic Procedure Only (Urgent) - Closed Specialty Diagnoses / Procedures Referred By Zechariah moore Referred To Contact XR IMAGING Diagnoses Right hand pain Procedures XR HAND GENERAL 3V PA/LAT/OBL RIGHT RADEX HAND MINIMUM 3 VIEWS Raeann Hernandez APRN.[employer] [id number] [place] [address] Xr Imaging Referral ID Status Reason Start Date Expiration Date V isits Requested Visits Authorized [id number] Closed Auto-Generate d Referral 06/16/2022 07/16/2023 1 1 * Diagnostic Procedure Only (Urgent) - Closed Specialty Diagnoses / Procedures Referred By Contac t Referred To Contact XR IMAGING Diagnoses Acute pain of right shoulder Procedures XR SHOULDER GENERAL 3V OR MORE AP/TRUE AP/OTHER RIGHT RADEX SHOULDER COMPLETE MINIMUM 2 VIEWS Raeann Hernandez APRN.CNP [address] [place] [address] Xr Imaging Referral ID Status Reason Start Date Expiration Date V isits Requested Visits Authorized [id number] Closed Auto-Generate d Referral 06/16/2022 07/16/2023 1 1 [facility] Instructions Instruction Description Start Date CompletedPatient advised to follow-up with Primary Care Physician for BMI management. Advance Directives There may be information available, but it has not been provided by the sender. No Advanced Directives Records Found Assessments There may be information available, but it has not been provided by the sender. Review of System There may be information available, but it has not been provided by the sender. Family History There may be information available, but it has not been provided by the sender.No Family History Records Found Reason for Referral Specialty Diagnoses / Procedures Referred By Contac t Referred To Contact Nephrology Diagnoses Type 2 diabetes mellitus with stage 4 chronic kidney disease, with long-term current use of insulin (HCC) Procedures CONSULT TO NEPHROLOGY Buck Bishop MD [address] [place] [address] Referral ID Status Reason Start Date Expiration Date Visits Requested Visits Authorized [id number] Ref Not Required PCP Requested Referral 09/13/2021 09/13/2022 1 1 Specialty Diagnoses / Procedures Referred By Zechariah moore Referred To Contact Dermatology Diagnoses Actinic keratosis of forehead Procedures CONSULT TO DERMATOLOGY Buck Bishop MD [address] [facility] [place] [place] [address] Referral ID Status Reason Start Date Expiration Date Visits Requested Visits Authorized [id number] Ref Not Required PCP Requested Referral 2 01/15/2023 1 1 Medications Administered Section Inactive Administered Medications - up to 3 most recent administrations Medication Order MAR Action Action Date Dose Rate Site PHENYLephrine 2.5 % 1 Drop (AK-DILATE, SHARATH-SYNEPHRINE) 1 Drop, BOTH EYES, ONCE, 1 dose, On Guillermina 04/03/22 at 1330, FOR OPHTHALMIC USE ONLY PROTECT FROM LIGHT Given 04/03/2022 1:30 PM EST 1 Drop proparacaine 0.5 % 1 Drop (ALCAINE) 1 Drop, BOTH EYES, ONCE, 1 dose, On Guillermina 04/03/22 at 1330, FOR THE EYE Given 04/03/2022 1:30 PM EST 1 Drop tropicamide 1 % 1 Drop (MYDRIACYL) 1 Drop, BOTH EYES, ONCE, 1 dose, On Guillermina 04/03/22 at 1330, FOR THE EYE Given 04/03/2022 1:30 PM EST 1 Drop Summary Purpose Additional Source Comments Source Comments (unrecognize d section and content) In the event this informatio n is protected by the Federal Confidentiality of Alcohol and Drug Abuse Patient Records regulations: The Federal rules restrict any use of the information to criminally investigate or prosecute any alcohol or drug abuse patient.[facility] Hospital[facility] the event this information is protected by the Federal Confidentiality of Alcohol and Drug Abuse Patient Records regulations: The Federal rules restrict any use of the information to criminally investigate or prosecute any alcohol or drug abuse patient.[facility] HospitalIn the event this information is protected by the Federal Confidentiality of Alcohol and Drug Abuse Patient Records regulations: The Federal rules restrict any use of the information to criminally investigate or prosecute any alcohol or drug abuse patient.[facility] HospitalIn the event this information is protected by the Federal Confidentiality of Alcohol and Drug Abuse Patient Records regulations: The Federal rules restrict any use of the information to criminally investigate or prosecute any alcohol or drug abuse patient.[facility] HospitalIn the event this information is protected by the Federal Confidentiality of Alcohol and Drug Abuse Patient Records regulations: The Federal rules restrict any use of the information to criminally investigate or prosecute any alcohol or drug abuse patient.[facility] HospitalIn the event this information is protected by the Federal Confidentiality of Alcohol and Drug Abuse Patient Records regulations: The Federal rules restrict any use of the information to criminally investigate or prosecute any alcohol or drug abuse patient.[facility] HospitalIn the event this information is protected by the Federal Confidentiality of Alcohol and Drug Abuse Patient Records regulations: The Federal rules restrict any use of the information to criminally investigate or prosecute any alcohol or drug abuse patient.[facility] HospitalIn the event this information is protected by the Federal Confidentiality of Alcohol and Drug Abuse Patient Records regulations: The Federal rules restrict any use of the information to criminally investigate or prosecute any alcohol or drug abuse patient.[facility] HospitalIn the event this information is protected by the Federal Confidentiality of Alcohol and Drug Abuse Patient Records regulations: The Federal rules restrict any use of the information to criminally investigate or prosecute any alcohol or drug abuse patient.[facility] HospitalIn the event this information is protected by the Federal Confidentiality of Alcohol and Drug Abuse Patient Records regulations: The Federal rules restrict any use of the information to criminally investigate or prosecute any alcohol or drug abuse patient.[facility] HospitalIn the event this information is protected by the Federal Confidentiality of Alcohol and Drug Abuse Patient Records regulations: The Federal rules restrict any use of the information to criminally investigate or prosecute any alcohol or drug abuse patient.[facility] HospitalIn the event this information is protected by the Federal Confidentiality of Alcohol and Drug Abuse Patient Records regulations: The Federal rules restrict any use of the information to criminally investigate or prosecute any alcohol or drug abuse patient.[facility] HospitalIn the event this information is protected by the Federal Confidentiality of Alcohol and Drug Abuse Patient Records regulations: The Federal rules restrict any use of the information to criminally investigate or prosecute any alcohol or drug abuse patient.[facility] HospitalIn the event this information is protected by the Federal Confidentiality of Alcohol and Drug Abuse Patient Records regulations: The Federal rules restrict any use of the information to criminally investigate or prosecute any alcohol or drug abuse patient.[facility] HospitalIn the event this information is protected by the Federal Confidentiality of Alcohol and Drug Abuse Patient Records regulations: The Federal rules restrict any use of the information to criminally investigate or prosecute any alcohol or drug abuse patient.[facility] HospitalIn the event this information is protected by the Federal Confidentiality of Alcohol and Drug Abuse Patient Records regulations: The Federal rules restrict any use of the information to criminally investigate or prosecute any alcohol or drug abuse patient.[facility] HospitalIn the event this information is protected by the Federal Confidentiality of Alcohol and Drug Abuse Patient Records regulations: The Federal rules restrict any use of the information to criminally investigate or prosecute any alcohol or drug abuse patient.[facility] HospitalIn the event this information is protected by the Federal Confidentiality of Alcohol and Drug Abuse Patient Records regulations: The Federal rules restrict any use of the information to criminally investigate or prosecute any alcohol or drug abuse patient.[facility] HospitalIn the event this information is protected by the Federal Confidentiality of Alcohol and Drug Abuse Patient Records regulations: The Federal rules restrict any use of the information to criminally investigate or prosecute any alcohol or drug abuse patient.[facility] HospitalIn the event this information is protected by the Federal Confidentiality of Alcohol and Drug Abuse Patient Records regulations: The Federal rules restrict any use of the information to criminally investigate or prosecute any alcohol or drug abuse patient.[facility] HospitalIn the event this information is protected by the Federal Confidentiality of Alcohol and Drug Abuse Patient Records regulations: The Federal rules restrict any use of the information to criminally investigate or prosecute any alcohol or drug abuse patient.[facility] HospitalIn the event this information is protected by the Federal Confidentiality of Alcohol and Drug Abuse Patient Records regulations: The Federal rules restrict any use of the information to criminally investigate or prosecute any alcohol or drug abuse patient.[facility] HospitalIn the event this information is protected by the Federal Confidentiality of Alcohol and Drug Abuse Patient Records regulations: The Federal rules restrict any use of the information to criminally investigate or prosecute any alcohol or drug abuse patient.[facility] HospitalIn the event this information is protected by the Federal Confidentiality of Alcohol and Drug Abuse Patient Records regulations: The Federal rules restrict any use of the information to criminally investigate or prosecute any alcohol or drug abuse patient.[facility] HospitalIn the event this information is protected by the Federal Confidentiality of Alcohol and Drug Abuse Patient Records regulations: The Federal rules restrict any use of the information to criminally investigate or prosecute any alcohol or drug abuse patient.[facility] HospitalIn the event this information is protected by the Federal Confidentiality of Alcohol and Drug Abuse Patient Records regulations: The Federal rules restrict any use of the information to criminally investigate or prosecute any alcohol or drug abuse patient.[facility] HospitalIn the event this information is protected by the Federal Confidentiality of Alcohol and Drug Abuse Patient Records regulations: The Federal rules restrict any use of the information to criminally investigate or prosecute any alcohol or drug abuse patient.[facility] HospitalIn the event this information is protected by the Federal Confidentiality of Alcohol and Drug Abuse Patient Records regulations: The Federal rules restrict any use of the information to criminally investigate or prosecute any alcohol or drug abuse patient.[facility] HospitalIn the event this information is protected by the Federal Confidentiality of Alcohol and Drug Abuse Patient Records regulations: The Federal rules restrict any use of the information to criminally investigate or prosecute any alcohol or drug abuse patient.[facility] HospitalIn the event this information is protected by the Federal Confidentiality of Alcohol and Drug Abuse Patient Records regulations: The Federal rules restrict any use of the information to criminally investigate or prosecute any alcohol or drug abuse patient.[facility] HospitalIn the event this information is protected by the Federal Confidentiality of Alcohol and Drug Abuse Patient Records regulations: The Federal rules restrict any use of the information to criminally investigate or prosecute any alcohol or drug abuse patient.[facility] HospitalIn the event this information is protected by the Federal Confidentiality of Alcohol and Drug Abuse Patient Records regulations: The Federal rules restrict any use of the information to criminally investigate or prosecute any alcohol or drug abuse patient.[facility] HospitalIn the event this information is protected by the Federal Confidentiality of Alcohol and Drug Abuse Patient Records regulations: The Federal rules restrict any use of the information to criminally investigate or prosecute any alcohol or drug abuse patient.[facility] HospitalIn the event this information is protected by the Federal Confidentiality of Alcohol and Drug Abuse Patient Records regulations: The Federal rules restrict any use of the information to criminally investigate or prosecute any alcohol or drug abuse patient.[facility] HospitalIn the event this information is protected by the Federal Confidentiality of Alcohol and Drug Abuse Patient Records regulations: The Federal rules restrict any use of the information to criminally investigate or prosecute any alcohol or drug abuse patient.[facility] HospitalIn the event this information is protected by the Federal Confidentiality of Alcohol and Drug Abuse Patient Records regulations: The Federal rules restrict any use of the information to criminally investigate or prosecute any alcohol or drug abuse patient.[facility] HospitalIn the event this information is protected by the Federal Confidentiality of Alcohol and Drug Abuse Patient Records regulations: The Federal rules restrict any use of the information to criminally investigate or prosecute any alcohol or drug abuse patient.[facility] Reason for Visit (unrecogniz ed section and content) Reason Onset Date Comments Refill Request 06/10/2021 Reason Comments Established Patient Reason Comments Results Reason Onset Date Comments Refill Request 10/23/2021 Reason Comments Appointment Reason Onset Date Comments Refill Request 11/29/2021 Reason Onset Date Comments Refill Request 12/09/2021 Reason Onset Date Comments Refill Request 01/08/2022 Reason Onset Date Comments 4 month follow-up Immunizations 01/15/2022 Flu vaccination Reason Onset Date Comments Refill Request 01/31/2022 Reason Comments Transition Of Care Reason Onset Date Comments Refill Request 03/03/2022 Reason Comments Diabetic Eye Exam Reason Onset Date Comments Refill Request 04/15/2022 Reason Onset Date Comments Refill Request 05/05/2022 Reason Comments Cough Cough, chest congest ion, musus x 3 weeks Reason Onset Date Comments Refill Request 05/28/2022 Reason Comments Trauma Right hand pain x 2 days Reason Onset Date Comments Refill Request 07/29/2022 Reason Comments Numbness Pain Specialty Diagnoses / Procedures Referred By Zecharaih moore Referred To Contact Orthopedics Diagnoses Pain Procedures CONSULT TO ORTHOPAEDICS OFFICE/OUTPATIENT [facility] MDM 60-74 MINUTES Yanira Yeboah APRN.[employer] WORK[employer] [address] [place] [address] Referral ID Status Reason Start Date Expiration Date V isits Requested Visits Authorized [id number] Closed PCP Requested Referral 06/23/2022 06/23/2023 1 1 Reason Onset Date Comments Refill Request 08/11/2022 Reason Comments Medicare Wellness Exam Annual Exam Reason Comments Established Patient Pain Reason Comments Schedule Surgery Reason Comments Established Patient 1 week 4 days post R CTR Post Op 1 week 4 days post R CTR Reason Comments Forms Reason Comments Established Patient 6 weeks post op righ t CTR Follow Up 6 weeks post op righ t CTR Reason Onset Date Comments Refill Request 11/14/2022 Reason Onset Date Comments Refill Request 12/11/2022 Reason Onset Date Comments Refill Request 01/01/2023 Reason Comments 4 month follow-up Care Teams (unrecognized sec tion and content) Player Piano Technician Relationship Specialty Start Date End Date Buck Bishop MD [address] [place] [address] PCP - General Internal Medicine 03/18/21 [facility] [address] [place] [address] Pharmacist Pharmacy 02/27/19 Player Piano Technician Relationship Specialty Start Date End Date Buck Bishop MD [address] [place] [address] PCP - General Internal Medicine 03/18/21 [facility] [address] [place] [address] Pharmacist Pharmacy 02/27/19 Player Piano Technician Relationship Specialty Start Date End Date Buck Bishop MD [address] [place] [address] PCP - General Internal Medicine 03/18/21 [facility] [address] [place] [address] Pharmacist Pharmacy 02/27/19 Player Piano Technician Relationship Specialty Start Date End Date Buck Bishop MD [address] [place] [address] PCP - General Internal Medicine 03/18/21 [facility] [address] [place] [address] Pharmacist Pharmacy 02/27/19 Player Piano Technician Relationship Specialty Start Date End Date Buck Bishop MD [address] [place] [address] PCP - General Internal Medicine 03/18/21 [facility] [address] [place] [address] Pharmacist Pharmacy 02/27/19 Player Piano Technician Relationship Specialty Start Date End Date Buck Bishop MD [address] [facility] [place] [address] PCP - General Internal Medicine 03/18/21 [facility] [address] [place] [address] Pharmacist Pharmacy 02/27/19 Player Piano Technician Relationship Specialty Start Date End Date Buck Bishop MD [address] [place] [address] PCP - General Internal Medicine 03/18/21 [facility] [address] [place] [address] Pharmacist Pharmacy 02/27/19 Player Piano Technician Relationship Specialty Start Date End Date Buck Bishop MD [address] [facility] [place] [address] PCP - General Internal Medicine 03/18/21 [facility] [address] [place] [address] Pharmacist Pharmacy 02/27/19 Player Piano Technician Relationship Specialty Start Date End Date Buck Bishop MD [address] [facility] [place] [address] PCP - General Internal Medicine 03/18/21 [facility] [address] [place] [address] Pharmacist Pharmacy 02/27/19 Player Piano 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 Relationship Specialty Start Date End Date Buck Bishop MD [address] [place] [address] PCP - General Internal Medicine 03/18/21 Player Piano Technician Relationship Specialty Start Date End Date Buck Bishop MD [address] [place] [address] PCP - General Internal Medicine 03/18/21 [facility] [address] [place] [address] Pharmacist Pharmacy 02/27/19 02/03/22 Player Piano Technician Relationship Specialty Start Date End Date Buck Bishop MD [facility] [address] PCP - General Internal Medicine 03/18/21 Player Piano Technician Relationship Specialty Start Date End Date Buck Bishop MD [facility] [facility] [place] [address] PCP - General Internal Medicine 03/18/21 Player Piano Technician Relationship Specialty Start Date End Date Buck Bishop MD [facility] [facility] [address] PCP - General Internal Medicine 03/18/21 Player Piano Technician Relationship Specialty Start Date End Date Buck Bishop MD [facility] [address] PCP - General Internal Medicine 03/18/21 Player Piano Technician Relationship Specialty Start Date End Date Buck Bishop MD [facility] [address] PCP - General Internal Medicine 03/18/21 Player Piano Technician Relationship Specialty Start Date End Date Buck Bishop MD [address] [place] [address] PCP - General Internal Medicine 03/18/21 Player Piano Technician Relationship Specialty Start Date End Date Buck Bishop MD [address] [place] [address] PCP - General Internal Medicine 03/18/21 Player Piano Technician Relationship Specialty Start Date End Date Buck Bishop MD [address] [place] [address] PCP - General Internal Medicine 03/18/21 Player Piano Technician Relationship Specialty Start Date End Date Buck Bishop MD [address] [place] [address] PCP - General Internal Medicine 03/18/21 Player Piano Technician Relationship Specialty Start Date End Date Buck Bishop MD [address] [place] [address] PCP - General Internal Medicine 03/18/21 Player Piano Technician Relationship Specialty Start Date End Date Buck Bishop MD [address] [place] [address] PCP - General Internal Medicine 03/18/21 Player Piano Technician Relationship Specialty Start Date End Date Buck Bishop MD [address] [place] [address] PCP - General Internal Medicine 03/18/21 Player Piano Technician Relationship Specialty Start Date End Date Buck Bishop MD [address] [place] [address] PCP - General Internal Medicine 03/18/21 Player Piano Technician Relationship Specialty Start Date End Date Buck Bishop MD [address] [place], [place] [address] PCP - General Internal Medicine 03/18/21 Player Piano Technician Relationship Specialty Start Date End Date Buck Bishop MD [address] [place], [place] [address] PCP - General Internal Medicine 03/18/21 (unrecognized sect ion and content) No Status Records Found INFORMATION SOURCE (unrecogn ized section and content) FOR RECORDS PERTAINING TO PATIENTS WHO ARE OR HAVE BEEN ENROLLED IN A CHEMICAL DEPENDENCY/SUBSTANCEABUSE PROGRAM, SOME INFORMATION MAY BE OMITTED. This clinical summary was aggregated from multiple sources. Caution should be exercised in using it in the provision of clinical care. This summary normalizes information from multiple sources, and as a consequence, information in this document may materially change the coding, format and clinical context of patient data. In addition, data may be omitted in some cases. CLINICAL DECISIONS SHOULD BE BASED ON THE PRIMARY CLINICAL RECORDS. [employer] provides no warranty or guarantee of the accuracy or completeness of information in this document.
== END 2023-03-20 17:50 | disposition home or self-care (01) ==
PROVIDERS: Emergency Provider Emergency Medicine; PCP Internal Medicine; Visit Provider Emergency Medicine
DX: E11.40 Type 2 diabetes mellitus with diabetic neuropathy, unspecified (principal); M79.604 Pain in right leg
CPT/HCPCS: 80048; 93971; 99282

== ENCOUNTER 2023-06-08 18:58 | Emergency (ER) | payer MEDICARE, BC, SELFPAY ==
[2023-06-08 18:59] VITALS: BP 127/77; PULSE 84; RESP 18; TEMP 36.3; O2SAT 99; BMI 28.8
--- NOTE | 2023-06-08 19:24 | CT_ITS ---
STUDY: CT BRAIN WITHOUT CONTRAST REASON FOR EXAM: Male, 87 years old. Fall RADIATION DOSAGE (If Supplied By Facility): CTDIvol = ( 44.99 ) mGy, DLP = ( 779.24 ) mGycm TECHNIQUE: Transaxial CT imaging of the brain was performed without administration of intravenous contrast material. Individualized dose optimization techniques were used for this CT. COMPARISON: No relevant priors. FINDINGS: Normal soft tissue structures. Normal calvarium. There is mild cerebral atrophy with widening of the extra-axial spaces and ventricular dilatation. There are areas of decreased attenuation within the white matter tracts of the supratentorial brain, consistent with microvascular disease changes. Normal basal ganglia and thalami. Normal brainstem. Normal cerebellum. There is no intracranial hemorrhage. There are no findings of an acute ischemic infarction. Normal visualized paranasal sinuses. CT/Brain/Head without Contrast IMPRESSION: Chronic involutional changes of the brain. Electronically Signed: Renzo Mary MD at 20:46 EDT ,
--- NOTE | 2023-06-08 19:24 | CT_ITS ---
STUDY: CT FACIAL BONES WITHOUT CONTRAST REASON FOR EXAM: Male, 87 years old. Facial Trauma RADIATION DOSAGE (If Supplied By Facility): CTDIvol = ( 29.38 ) mGy, DLP = ( 606.22 ) mGycm TECHNIQUE: The patient was scanned in a multi detector CT scanner. Sagittal and coronal images were reconstructed. Individualized dose optimization techniques were used for this CT. COMPARISON: None. FINDINGS: Normal soft tissue structures. Normal orbital harrison and orbital contents. Normal nasal bones and anterior nasal spine. Normal facial bones. There is no demonstrated fracture. Air-fluid level in the left sphenoid sinus consistent with acute sinusitis. CT/Sinus/Facial Bone IMPRESSION: Normal unenhanced CT of the facial bones. Acute left sphenoid sinusitis. Electronically Signed: Renzo Mary MD at 20:52 EDT ,
--- NOTE | 2023-06-08 19:24 | CT_ITS ---
STUDY: CT CERVICAL SPINE WITHOUT CONTRAST REASON FOR EXAM: Male, 87 years old. Cervical trauma RADIATION DOSAGE (If Supplied By Facility): CTDIvol = ( 22.98 ) mGy, DLP = ( 446.21 ) mGycm TECHNIQUE: High resolution transaxial imaging was performed without contrast material. Sagittal and coronal images were reconstructed. Individualized dose optimization techniques were used for this CT. COMPARISON: None FINDINGS: Normal craniovertebral junction. There is hypertrophy of the transverse ligament of the atlas with mild posterior displacement of the superior and inferior longitudinal fibers of the cruciform ligament, producing minimal ventral thecal sac flattening, but without cervical cord impingement. There are mild degenerative changes in the anterior atlantoaxial articulation. Normal odontoid process. There is straightening of the normal cervical lordosis. Normal vertebral bodies and posterior osseous elements. C2-3: Moderate right facet hypertrophy produces moderate right neural foraminal stenosis. No central spinal stenosis. C3-4: Moderate facet hypertrophy produces moderate right neural foraminal stenosis. Mild broad disc osteophyte complex produces mild spinal stenosis. C4-5: Moderate broad disc osteophyte complex and bilateral uncovertebral hypertrophy produces moderate spinal stenosis and mild left neural foraminal stenosis. C5-6: Mild left facet hypertrophy with ankylosis of facet joint. Mild broad disc osteophyte complex with ankylosis of the disc space produces mild spinal stenosis. C6-7: Moderate broad disc osteophyte complex with ankylosis at this space produces moderate spinal stenosis and mild bilateral neural foraminal stenosis. C7-T1: Normal endplates. Normal disc height and morphology. Normal central canal and intervertebral neuroforamina. Normal visualized soft tissue structures. CT/Spine Cervical without Contras IMPRESSION: 1. No acute fracture or subluxation. 2. Degenerative disc disease as described above. Electronically Signed: Renzo Mary MD at 21:07 EDT ,
--- NOTE | 2023-06-08 19:26 | EDS_ITS ---
HPI <ALONZO Latham - Last Filed: 06/08/23 21:26> History of Present Illness Chief Complaint: Head Injury Narrative Narrative: Patient is a 87-year-old male who has history of hypertension, chronic back pain, cholesterol who presents the emergency department after mechanical fall. Per the patient, the patient was walking a parking lot when he tripped over his foot, landing on his face. Patient denies any LOC. There were on liquids there and they called the ambulance. Patient states that most of his pain is in his face, he does have pain to the left knee. [facility] <ALONZO Latham - Last Filed: 06/08/23 21:26> [facility] Medical History (Updated 06/08/23 @ 21:25 by ALONZO Latham) Benign prostatic hyperplasia CKD (chronic kidney disease) Diabetes mellitus Hyperlipidemia Hypertension Restless legs syndrome Home Medications Ezetimibe/Simvastatin [Vytorin 10-20 Mg Tablet] 1 tab PO QPM cholesterol 12/04/16 [History Last Taken 10/07/19 23:00] amlodipine 10 mg tablet (Norvasc) 10 mg PO DAILY high blood pressure 12/04/16 [History Last Taken 10/07/19 07:00] Vitamin C 500 mg PO DAILY supplement 10/07/19 [History Last Taken 10/07/19 12:00] linagliptin 5 mg tablet 5 mg PO DAILY diabetes 10/07/19 [History Last Taken 10/07/19 07:00] oxycodone-acetaminophen 5 mg-325 mg tablet 1 tab PO TID PRN Pain Score 1-11/2510/08/19 [History Last Taken Unknown] alfuzosin 10 mg tablet,extended release 24 hr 10 mg PO DAILY 06/08/23 [History Last Taken Unknown] duloxetine 60 mg capsule,delayed release 60 mg PO DAILY 06/08/23 [History Last Taken Unknown] ezetimibe 10 mg-simvastatin 20 mg tablet 1 tab PO QHS 06/08/23 [History Last Taken Unknown] gabapentin 300 mg capsule 300 mg PO QHS 06/08/23 [History Last Taken Unknown] metoprolol succinate 25 mg tablet,extended release 24 hr 25 mg PO DAILY 06/08/23 [History Last Taken Unknown] oxybutynin chloride 10 mg tablet,extended release 24 hr 10 mg PO QPM 06/08/23 [History Last Taken Unknown] oxycodone-acetaminophen 10 mg-325 mg tablet 1 tab PO 4X/DAY PRN PRN pain 06/08/23 [History Last Taken Unknown] semaglutide 0.25 mg or 0.5 mg (2 mg/3 mL) subcutaneous pen injector (Ozempic) 0.5 mg subcut QWEEK 06/08/23 [History Last Taken Unknown] triamcinolone acetonide 0.1 % topical cream 1 applic topical DAILY PRN dry skin 06/08/23 [History Last Taken Unknown] Allergy/AdvReac Type Severity Reaction Status Date / Time No Known Allergies Allergy Verified 06/08/23 18:58 Social History Smoking Status: Never smoker ROS <ALONZO Latham - Last Filed: 06/08/23 21:26> ROS ED ROS Narrative Constitutional: Negative for fever, chills, weight loss, weakness Eyes: Negative for vision loss, vision change, double vision ENT: Negative for any sore throat, ear pain, congestion Cardiovascular: Negative for any chest pain, tightness, palpitations Respiratory: Negative for any cough, sputum production, hemoptysis, dyspnea, dyspnea on exertion, orthopnea Gastrointestinal: Negative for any abdominal pain, nausea, vomiting, diarrhea, constipation, blood in stool, blood in vomit : Negative for any urinary frequency, dysuria, retention, blood in urine Muscle skeletal: Negative for any neck pain, back pain. Positive left knee pain Neurological: Negative for any headache, syncope, dizziness Skin: Negative for any rashes, itching, lacerations. Positive for abrasion to the left forehead, bridge of nose Psychiatric: Negative for any depression, anxiety, stress, suicidal ideation, homicidal ideation Hematologic: Negative for any excessive bruising, easy bleeding EXAM <ALONZO Latham - Last Filed: 06/08/23 21:26> Physical Exam Narrative Exam Narrative: Vital signs reviewed. HEET: Head normocephalic atraumatic, TMs clear bilaterally. Posterior pharynx is clear, moist mucous membranes. Nares clear bilaterally. Pupils are equal round reactive to light. Negative for any hemotympanum, septal hematoma. Patient does have an abrasion to the bridge of the nose, is all superficial. There is some ecchymosis, edema. Neck: Supple with no lymphadenopathy or tenderness. No signs of meningismus. Cardiac: Regular rate and rhythm no murmurs gallops or rubs, equal peripheral pulses bilaterally. Respiratory: Lungs clear to auscultation bilaterally. No chest tenderness. Abdomen: Soft, nontender, nondistended. No abdominal bruit or pulsatile masses. No hepatosplenomegaly Extremities: No peripheral edema, no signs of gross trauma or deformity. Active full range of motion of all extremities. Patient does have pain to palpation to the patella of the left knee, there is slight bruising. Neuro: Cranial nerves II through XII intact, no focal neurological deficits. Skin: Clean dry and intact with no rash, purpura, petechiae, vesicles or pustules. Backs/flank: No CVA tenderness, no midline spinal tenderness, no deformity. Psych: Normal mood and affect. No SI, HI or acute psychosis. Const Vital Signs: 06/08/23 18:59 06/08/23 19:13 06/08/23 20:58 Temperature 97.4 F L Temperature Source Temporal Pulse Rate 84 77 Respiratory Rate 18 14 Respiratory Effort Normal Respiratory Depth Normal Respiratory Pattern Normal Blood Pressure 127/77 H 120/72 Blood Pressure Mean 93 88 Pulse Ox 99 99 Oxygen Delivery Method Room Air Room Air Room Air <Vishnu Mae MD - Last Filed: 06/08/23 23:20> Physical Exam Const Vital Signs: 06/08/23 18:59 06/08/23 19:13 06/08/23 20:58 Temperature 97.4 F L Temperature Source Temporal Pulse Rate 84 77 Respiratory Rate 18 14 Respiratory Effort Normal Respiratory Depth Normal Respiratory Pattern Normal Blood Pressure 127/77 H 120/72 Blood Pressure Mean 93 88 Pulse Ox 99 99 Oxygen Delivery Method Room Air Room Air Room Air MDM <ALONZO Latham - Last Filed: 06/08/23 21:26> MDM Radiography Diagnostic Testing: Clinical Impression(s) from Imaging Studies Brain CT 06/08/23 19:24 IMPRESSION: Chronic involutional changes of the brain. Electronically Signed: Renzo Mary MD at 20:46 EDT , Cervical Spine CT 06/08/23 19:24 IMPRESSION: 1. No acute fracture or subluxation. 2. Degenerative disc disease as described above. Electronically Signed: Renzo Mary MD at 21:07 EDT Reading Location ID and State: [id number] / [employer] , Service support , Facial/Sinus 06/08/23 19:24 IMPRESSION: Normal unenhanced CT of the facial bones. Acute left sphenoid sinusitis. Electronically Signed: Renzo Mary MD at 20:52 EDT , Knee X-Ray 06/08/23 19:45 IMPRESSION: 1. No acute fracture or dislocation. 2. Moderate arthrosis. 3. Joint effusion. Electronically Signed: Renzo Mary MD at 21:09 EDT , Treatment and Re-Evaluation :: Differential diagnosis includes however is not limited to: Nasal bone fracture, concussion, skull fracture, neck fracture, contusions, Patient appears to be in no obvious distress, vital signs are stable. Patient presents to the emergency department with complaints of facial pain after mechanical fall as well as pain to the left knee. Patient will receive CT scans of the brain head and cervical spine. X-rays left knee will be ordered. Offered analgesia such as Tylenol however patient refused. All radiologic examinations were read, reviewed by the emergency department attending. From these reads, a plan of care will be put in place. Patient CT scan of the brain cervical spine as well as the facial bones were negative for any acute fractures. Patient's x-ray of the left knee showed a joint effusion however no acute fracture or dislocation. Patient at this time will be discharged home. Will continue take Tylenol, he will ice, I did let him know that he will be sore over the next couple days. He was given red flag signs to look out for. All questions answered, is able to speak to the patient's son and [id number]. Patient stable for discharge. <Vishnu Mae MD - Last Filed: 06/08/23 23:20> [facility] Narrative Medical decision making narrative: Dr. Mae: I have personally performed a face to face assessment of the patient and have reviewed the [facility] Note. I performed a substantive portion of the visit including all aspects of the following. My villaseñor findings include: History is mechanical fall after putting shopping cart away. Fell in parking lot. No loss of consciousness. Abrasions to bridge of nose. No blood thinners. Exam is GCS 15. ABCs intact. Regular rate and rhythm. Lungs clear to auscultation bilaterally. Abdomen soft and nontender with normal active bowel sounds. Positive abrasions to nose. No active bleeding. Medical Decision Making: Patient states immunizations up-to-date. Check CT brain, check CT face for fractures. Check CT C-spine. Left knee pain. X-rays of the left knee interpreted by myself independently shows no evidence of a patellar fracture where the patient is tender. Flexion and extension mechanism intact. I reviewed the radiology reports of the CTs of the brain, C-spine, and facial bones. No evidence of fracture, no active hemorrhage/intracranial hemorrhage. Symptomatic treatment. Discharge. [id number] analgesics. Other additions or changes: [None] Radiography Diagnostic Testing: Clinical Impression(s) from Imaging Studies Brain CT 06/08/23 19:24 IMPRESSION: Chronic involutional changes of the brain. Electronically Signed: Renzo Mary MD at 20:46 EDT Reading Location ID and State: [id number] / [employer] , Service support , Cervical Spine CT 06/08/23 19:24 IMPRESSION: 1. No acute fracture or subluxation. 2. Degenerative disc disease as described above. Electronically Signed: Renzo Mary MD at 21:07 EDT Reading Location ID and State: [id number] / [employer] , Service support , Facial/Sinus 06/08/23 19:24 IMPRESSION: Normal unenhanced CT of the facial bones. Acute left sphenoid sinusitis. Electronically Signed: Renzo Mary MD at 20:52 EDT , Knee X-Ray 06/08/23 19:45 IMPRESSION: 1. No acute fracture or dislocation. 2. Moderate arthrosis. 3. Joint effusion. Electronically Signed: Renzo Mary MD at 21:09 EDT , Discharge Plan Triage Chief Complaint: Head Injury ED Midlevel Provider: Damien Lara ED Provider: Vishnu Mae Dx/Rx/DC Orders Clinical Impression: Concussion, Acute pain of left knee, Head injury, Abrasion of face, Fall Instructions: Concussion Dc, Falls Prevent Outside, ED Abrasion Prescriptions: No Action amlodipine [Norvasc] 10 MG tablet 10 mg PO DAILY Ezetimibe/Simvastatin [Vytorin 10-20 Mg Tablet] 1 TABLET tablet 1 tab PO QPM linagliptin 5 MG tablet 5 mg PO DAILY Vitamin C 500 mg PO DAILY oxycodone-acetaminophen 1 TABLET tablet 1 tab PO TID PRN (Reason: Pain Score 1-10/10) oxybutynin chloride 10 mg tablet extended release 24hr 10 mg PO QPM triamcinolone acetonide 0.1 % cream 1 applic topical DAILY PRN (Reason: dry skin) oxycodone-acetaminophen 10-325 mg tablet 1 tab PO 4X/DAY PRN PRN (Reason: pain) gabapentin 300 mg capsule 300 mg PO QHS metoprolol succinate 25 mg tablet extended release 24 hr 25 mg PO DAILY alfuzosin 10 mg tablet extended release 24 hr 10 mg PO DAILY ezetimibe-simvastatin 10-20 mg tablet 1 tab PO QHS duloxetine 60 mg capsule,delayed release(DR/EC) 60 mg PO DAILY Ozempic 0.25 mg or 0.5 mg (2 mg/3 mL) pen injector 0.5 mg subcut QWEEK Primary Care Provider: Buck Patten Referrals: Buck Patten MD [Primary Care Provider] - Activity Restrictions/Additional Instructions: Please keep clean and dry. Please follow-up outpatient. Turn for any worsening symptoms. Disposition Disposition: Home, Self Care Discharge Date/Time: 06/08/23 21:38
--- NOTE | 2023-06-08 19:45 | RAD_ITS ---
STUDY: X-RAY - LEFT KNEE REASON FOR EXAM: Male, 87 years old. knee injury TECHNIQUE: 4 view(s) of the knee. COMPARISON: None. FINDINGS: Normal visualized distal femur. Normal visualized proximal tibia and fibula. Normal proximal tibiofibular articulation. There is mild degenerative arthrosis of the medial femorotibial compartment. There is moderate degenerative arthrosis of the lateral femorotibial compartment with moderate joint space narrowing. There is mild degenerative arthrosis of the patellofemoral articulation. There is a moderate volume joint effusion. The soft tissue structures are unremarkable. RAD/Knee 4 or More Views IMPRESSION: 1. No acute fracture or dislocation. 2. Moderate arthrosis. 3. Joint effusion. Electronically Signed: Renzo Mary MD at 21:09 EDT ,
[2023-06-08 20:58] VITALS: BP 120/72; PULSE 77; RESP 14; O2SAT 99
== END 2023-06-08 21:38 | disposition home or self-care (01) ==
PROVIDERS: Emergency Provider Emergency Medicine; PCP Internal Medicine; Visit Provider Emergency Medicine
DX: S06.0X0A Concussion without loss of consciousness, initial encounter (principal); M25.562 Pain in left knee; S00.81XA Abrasion of other part of head, initial encounter; N18.9 Chronic kidney disease, unspecified; Z79.899 Other long term (current) drug therapy; W19.XXXA Unspecified fall, initial encounter
CPT/HCPCS: 70450; 70486; 72125; 73564; 99283